=== PATIENT | male | born 1945 | race Caucasian/White ===

== ENCOUNTER 2020-11-10 17:16 | Inpatient (IN) | payer OTHER, MEDICARE ==
[2020-11-10] MEDS ORDERED: ACETAMINOPHEN 1000 MG/100 ML VIAL (NON FORMULARY) IVPB ONE (17:56)
[2020-11-10] MEDS ORDERED: METOCLOPRAMIDE HCL INJECTION 10 MG/2 ML VIAL IVPB ONE (17:56)
[2020-11-10] MEDS ORDERED: FAMOTIDINE 20 MG/50 ML IVPB 20 MG/50 ML MG IVPB ONE ×2 (17:56→18:19)
[2020-11-10] MEDS ORDERED: ACETAMINOPHEN INJECTION 100 ML IVPB ONE (18:19)
[2020-11-10] MEDS ORDERED: METOCLOPRAMIDE HCL INJECTION 10 MG/2 ML VIAL ONE (18:19)
[2020-11-10 19:14] LABS: BASO % 0.3 % (0-2.0); EOS % 0.2 % (0-4.5); LYMPH % 3.3 % (8-40); MCH 30.1 pg (25.7-33.7); MCHC 33.5 g/dl (32.0-35.9); MEAN CELL VOLUME 89.9 fl (80-96); MEAN PLT VOLUME 8.6 fl (7.5-11.1); MONO % 7.1 % (3.8-10.2); NEUT % 89.1 % (42.8-82.8); PLATELET COUNT 241 10^3/uL (134-434); RBC 4.33 M/mm3 (4.00-5.60); RDW 14.6 % (11.9-15.9); WHITE BLOOD COUNT 12.2 K/mm3 (4.0-10.0)
[2020-11-10 19:35] LABS: CHLORIDE 106 mmol/L (98-107); SODIUM 139 mmol/L (136-145)
[2020-11-10 19:37] LABS: BLOOD UREA NITROGEN 28.7 mg/dL (7-18); CALCIUM 9.4 mg/dL (8.5-10.1)
[2020-11-10 19:38] LABS: ANION GAP 9 MMOL/L (8-16); CO2 24 mmol/L (21-32); GLUCOSE,RANDOM 162 mg/dL (74-106); LIPASE 97 U/L (73-393); MAGNESIUM 2.2 mg/dL (1.8-2.4)
[2020-11-10 19:41] LABS: CREATININE 1.1 mg/dL (0.55-1.3); SGOT/AST 27 U/L (15-37); SGPT/ALT 34 U/L (13-61)
[2020-11-10 19:42] LABS: BILIRUBIN,TOTAL 0.9 mg/dL (0.2-1); TOT PROT 7.9 g/dl (6.4-8.2)
[2020-11-10 19:43] LABS: ALK PHOS 106 U/L (45-117)
[2020-11-10 19:49] LABS: LACTIC ACID 3.2 mmol/L (0.4-2.0)
[2020-11-10] MEDS ORDERED: SODIUM CHLORIDE 0.9% 500 ML INFUS.BAG IV ONE (20:16)
[2020-11-10 21:12] LABS: URINE APPEARANCE CLOUDY; URINE BILIRUBIN NEGATIVE (NEGATIVE); URINE COLOR DK YELLOW; URINE GLUCOSE (UA) NEGATIVE (NEGATIVE); URINE KETONE 1+ (NEGATIVE); URINE LEUK ESTERASE NEGATIVE (NEGATIVE); URINE NITRITE NEGATIVE (NEGATIVE); URINE PROTEIN TRACE (NEGATIVE)
[2020-11-10] MEDS ORDERED: SODIUM PHOSPHATE/NA BIPHOS 133 ML ENEMA PR ONE (22:02)
[2020-11-10] MEDS ORDERED: POLYETHYLENE GLYCOL 3350 119 GM BTL PO SCH (22:05)
[2020-11-10] MEDS ORDERED: MINERAL OIL ENEMA 133 ML ENEMA PR ONE (23:08)
[2020-11-11] MEDS ORDERED: ACETAMINOPHEN 325 MG TABLET (FP) PO PRN (03:06)
[2020-11-11 08:20] LABS: BASO % 0.5 % (0-2.0); EOS % 3.8 % (0-4.5); HEMATOCRIT 36.2 % (35.4-49); HEMOGLOBIN 12.2 GM/dL (11.7-16.9); LYMPH % 11.8 % (8-40); MCH 30.7 pg (25.7-33.7); MCHC 33.8 g/dl (32.0-35.9); MEAN CELL VOLUME 90.8 fl (80-96); MONO % 12.4 % (3.8-10.2); NEUT % 71.5 % (42.8-82.8); PLATELET COUNT 224 10^3/uL (134-434); RBC 3.98 M/mm3 (4.00-5.60); RDW 14.6 % (11.9-15.9)
[2020-11-11 08:24] LABS: PHOSPHOROUS 1.3 mg/dL (2.5-4.9)
[2020-11-11 08:49] LABS: CALCIUM 8.6 mg/dL (8.5-10.1)
[2020-11-11 08:50] LABS: ALBUMIN 3.2 g/dl (3.4-5.0); BLOOD UREA NITROGEN 22.5 mg/dL (7-18); MAGNESIUM 2.2 mg/dL (1.8-2.4)
[2020-11-11 08:53] LABS: CREATININE 0.8 mg/dL (0.55-1.3); PHOSPHOROUS 3.1 mg/dL (2.5-4.9)
[2020-11-11 08:54] LABS: BILIRUBIN,TOTAL 0.9 mg/dL (0.2-1); TOT PROT 6.5 g/dl (6.4-8.2)
[2020-11-11] MEDS: SERTRALINE HCL 50 MG TABLET (FP) PO SCH (09:47)
[2020-11-11] MEDS: ENOXAPARIN NA (PORCINE) 40 MG/0.4 ML DISP.SYRIN SQ SCH (09:47)
[2020-11-11] MEDS ORDERED: POLYETHYLENE GLYCOL 3350 119 GM BTL PO SCH (10:00)
[2020-11-11] MEDS: POLYETHYLENE GLYCOL (HEALTHYLAX) 3350 17 GM PACKET PO SCH (11:00)
[2020-11-11] MEDS: MIDODRINE HCL 2.5 MG TABLET PO SCH ×3 (11:41→17:08)
[2020-11-11] MEDS: LACTATED RINGERS SOLUTION 1,000 ML/1,000 ML INFUS.BAG IV SCH (19:49)
[2020-11-11] MEDS ORDERED: ATORVASTATIN CA 20 MG TABLET (FP) PO SCH (22:00)
[2020-11-12] MEDS: LACTATED RINGERS SOLUTION 1,000 ML/1,000 ML INFUS.BAG IV SCH (05:26)
[2020-11-12 07:35] LABS: BASO % 0.6 % (0-2.0); EOS % 5.7 % (0-4.5); HEMATOCRIT 34.3 % (35.4-49); HEMOGLOBIN 11.6 GM/dL (11.7-16.9); LYMPH % 15.5 % (8-40); MCH 30.3 pg (25.7-33.7); MCHC 33.7 g/dl (32.0-35.9); MEAN CELL VOLUME 89.9 fl (80-96); MEAN PLT VOLUME 8.6 fl (7.5-11.1); MONO % 13.4 % (3.8-10.2); NEUT % 64.8 % (42.8-82.8); PLATELET COUNT 215 10^3/uL (134-434); RBC 3.81 M/mm3 (4.00-5.60); RDW 15.1 % (11.9-15.9); WHITE BLOOD COUNT 6.2 K/mm3 (4.0-10.0)
[2020-11-12 07:48] LABS: CALCIUM 8.5 mg/dL (8.5-10.1)
[2020-11-12 07:51] LABS: CREATININE 0.8 mg/dL (0.55-1.3)
[2020-11-12 07:53] LABS: BILIRUBIN,TOTAL 0.9 mg/dL (0.2-1); TOT PROT 6.1 g/dl (6.4-8.2)
[2020-11-12] MEDS: ENOXAPARIN NA (PORCINE) 40 MG/0.4 ML DISP.SYRIN SQ SCH (09:35)
[2020-11-12] MEDS: POLYETHYLENE GLYCOL (HEALTHYLAX) 3350 17 GM PACKET PO SCH (09:35)
[2020-11-12] MEDS: SERTRALINE HCL 50 MG TABLET (FP) PO SCH (09:35)
[2020-11-12] MEDS: MIDODRINE HCL 2.5 MG TABLET PO SCH ×3 (09:35→18:03)
[2020-11-12] MEDS ORDERED: PANTOPRAZOLE 40 MG TABLET PO SCH (10:00)
[2020-11-12 13:57] VITALS: BP 117/58; PULSE 75; TEMP 98.2
[2020-11-12 15:29] VITALS: BMI 17.2
== END 2020-11-12 18:05 | disposition home or self-care (01) | DRG 389 ==
LOC: JER 17:16 → JERBED 22:15 → J7W 11-11 09:14
PROVIDERS: ADMIT Internal Medicine; ATTEND Internal Medicine
DX: K56.49 Other impaction of intestine (principal); C15.9 Malignant neoplasm of esophagus, unspecified; E87.2 Acidosis; K56.7 Ileus, unspecified; I10 Essential (primary) hypertension; E78.5 Hyperlipidemia, unspecified; F32.9 Major depressive disorder, single episode, unspecified; K44.9 Diaphragmatic hernia without obstruction or gangrene
CPT/HCPCS: 36415; 71045-TC-FY; 74177-TC; 80053; 81003; 82550; 83605; 83690; 83735; 84100; 84484; 85025; 87086; 87186; 93005; 93010; 99285-25; C9803; J0131; Q9967; U0003; U0005

== ENCOUNTER 2021-01-09 05:15 | Day surgery (SDC) | payer OTHER, MEDICARE ==
[2021-01-08 11:15] VITALS: BMI 20.1
[2021-01-09 13:19] VITALS: TEMP 98
[2021-01-09 13:45] VITALS: BP 141/68; PULSE 63
== END 2021-01-09 14:15 | disposition home or self-care (01) ==
LOC: JASU-ENDO 05:15
PROVIDERS: ATTEND Internal Medicine Gastroenterology
PROC: 0DJD8ZZ Inspection of Lower Intestinal Tract, Via Natural or Artificial Opening Endoscopic (ICD-10-PCS; principal; 2021-01-09 11:45)
DX: Z12.11 Encounter for screening for malignant neoplasm of colon (principal); Z85.038 Personal history of other malignant neoplasm of large intestine

== ENCOUNTER 2021-12-18 04:23 | Day surgery (SDC) | payer OTHER, MEDICARE ==
[2021-12-15 13:00] VITALS: BMI 20.1
[2021-12-18] MEDS ORDERED: LACTATED RINGERS SOLUTION 1,000 ML IV SCH (07:30)
[2021-12-18 11:56] VITALS: BP 132/64; PULSE 69; RESP 17; TEMP 97.8
== END 2021-12-18 11:45 | disposition home or self-care (01) ==
LOC: JASU-ENDO 04:23
PROVIDERS: ATTEND Internal Medicine Gastroenterology
PROC: 0DJ08ZZ Inspection of Upper Intestinal Tract, Via Natural or Artificial Opening Endoscopic (ICD-10-PCS; principal; 2021-12-18 10:15)
DX: Z08 Encounter for follow-up examination after completed treatment for malignant neoplasm (principal); Z85.01 Personal history of malignant neoplasm of esophagus

== ENCOUNTER 2022-03-07 14:41 | Inpatient (IN) | payer OTHER, MEDICARE ==
[2022-03-07 14:48] VITALS: BMI 19.0
[2022-03-07] MEDS ORDERED: LACTATED RINGERS SOLUTION 1000 ML INFUS.BAG IV ONE ×2 (17:21→20:40)
[2022-03-07 18:13] LABS: BASO % 0.1 % (0-2.0); EOS % 0.1 % (0-4.5); HEMOGLOBIN 11.2 GM/dL (11.7-16.9); LYMPH % 3.5 % (8-40); MEAN CELL VOLUME 91.1 fl (80-96); MEAN PLT VOLUME 9.3 fl (7.5-11.1); MONO % 6.7 % (3.8-10.2); NEUT % 89.6 % (42.8-82.8); PLATELET COUNT 185 10^3/uL (134-434); RBC 3.73 M/mm3 (4.00-5.60); RDW 14.4 % (11.9-15.9); WHITE BLOOD COUNT 16.8 K/mm3 (4.0-10.0)
[2022-03-07 18:32] LABS: CHLORIDE 101 mmol/L (98-107); SODIUM 139 mmol/L (136-145)
[2022-03-07 18:34] LABS: CALCIUM 8.5 mg/dL (8.5-10.1)
[2022-03-07 18:35] LABS: ALBUMIN 2.8 g/dl (3.4-5.0); ANION GAP 11 MMOL/L (8-16); BLOOD UREA NITROGEN 35.4 mg/dL (7-18); CO2 26 mmol/L (21-32); GLUCOSE,RANDOM 131 mg/dL (74-106)
[2022-03-07 18:38] LABS: CREATININE 1.4 mg/dL (0.55-1.3); SGOT/AST 18 U/L (15-37); SGPT/ALT 22 U/L (13-61)
[2022-03-07 18:39] LABS: TOT PROT 6.2 g/dl (6.4-8.2)
[2022-03-07 18:40] LABS: BILIRUBIN,TOTAL 0.7 mg/dL (0.2-1)
[2022-03-07 18:41] LABS: ALK PHOS 75 U/L (45-117)
[2022-03-07 18:42] LABS: EPI CELLS 13 /uL (0-25.1); HYALINE CASTS 4 /uL (0-3.1); PH,URINE 5.5 (5.0-8.0); URINE APPEARANCE CLOUDY; URINE BACTERIA 11 /uL (0-1359); URINE BILIRUBIN NEGATIVE (NEGATIVE); URINE COLOR DK YELLOW; URINE GLUCOSE (UA) NEGATIVE (NEGATIVE); URINE KETONE TRACE (NEGATIVE); URINE LEUK ESTERASE NEGATIVE (NEGATIVE); URINE NITRITE NEGATIVE (NEGATIVE); URINE PROTEIN 2+ (NEGATIVE); URINE RBC 10 /uL (0-23.9); URINE WBC 10 /uL (0-25.8)
[2022-03-07] MEDS ORDERED: ASPIRIN 81 MG CHEWABLE TABLETS PO ONE (19:46)
[2022-03-07] MEDS ORDERED: PIPERACILLIN/TAZOB 3.375 GM 3.375 GM in DEXTROSE 5%-WATER - 50 ML IVPB ONE (20:42)
[2022-03-07] MEDS ORDERED: VANCOMYCIN 1 GM in D5W (PRE-DOCKED) 1,000 MG/250 ML IVPB ONE (20:42)
[2022-03-07] MEDS ORDERED: PIPERACILLIN/TAZOB 3.375 GM 3.375 GM/50 ML BAG IVPB ONE (22:24)
[2022-03-08] MEDS ORDERED: VANCOMYCIN/WATER FOR INJ (PEG) 1,000 MG/200 ML BAG IVPB ONE (02:36)
[2022-03-08] MEDS: LACTATED RINGERS SOLUTION 1,000 ML/1,000 ML INFUS.BAG IV SCH (02:49)
[2022-03-08] MEDS ORDERED: PIPERACILLIN/TAZOB 2.25 GM 2.25 GM in DEXTROSE 5%-WATER - 50 ML IVPB SCH (06:00)
[2022-03-08] MEDS: PIPERACILLIN/TAZOB 2.25 GM 2.25 GM in DEXTROSE 5%-WATER - 50 ML IVPB SCH ×2 (06:44→10:03)
[2022-03-08 07:35] LABS: HEMATOCRIT 33.2 % (35.4-49); HEMOGLOBIN 10.8 GM/dL (11.7-16.9); MCH 29.9 pg (25.7-33.7); MCHC 32.6 g/dl (32.0-35.9); MEAN CELL VOLUME 91.6 fl (80-96); MEAN PLT VOLUME 10.3 fl (7.5-11.1); PLATELET COUNT 171 10^3/uL (134-434); RBC 3.63 M/mm3 (4.00-5.60); RDW 14.4 % (11.9-15.9); WHITE BLOOD COUNT 16.8 K/mm3 (4.0-10.0)
[2022-03-08 08:58] LABS: HEMATOCRIT 32.6 % (35.4-49); HEMOGLOBIN 10.8 GM/dL (11.7-16.9); MCH 30.2 pg (25.7-33.7); MCHC 33.1 g/dl (32.0-35.9); MEAN CELL VOLUME 91.3 fl (80-96); MEAN PLT VOLUME 9.7 fl (7.5-11.1); PLATELET COUNT 189 10^3/uL (134-434); RBC 3.57 M/mm3 (4.00-5.60); RDW 14.6 % (11.9-15.9); WHITE BLOOD COUNT 19.1 K/mm3 (4.0-10.0)
[2022-03-08 09:04] LABS: ALBUMIN 2.5 g/dl (3.4-5.0); BLOOD UREA NITROGEN 23.1 mg/dL (7-18); CALCIUM 8.3 mg/dL (8.5-10.1); MAGNESIUM 1.7 mg/dL (1.8-2.4)
[2022-03-08 09:08] LABS: PHOSPHOROUS 2.1 mg/dL (2.5-4.9)
[2022-03-08 09:09] LABS: TOT PROT 5.8 g/dl (6.4-8.2)
[2022-03-08 09:18] LABS: ANISOCYTOSIS 0; MACROCYTOSIS 0; PLATELET ESTIMATE DECREASED
[2022-03-08] MEDS ORDERED: VANCOMYCIN 1 GM/200 ML PREMIX BAG (RESTRICTED TO ID ONLY) IVPB SCH (10:00)
[2022-03-08] MEDS ORDERED: VANCOMYCIN 1 GM in D5W (PRE-DOCKED) 1,000 MG/250 ML IVPB SCH ×3 (10:00)
[2022-03-08 10:01] LABS: ANISOCYTOSIS 1+; MACROCYTOSIS 0; PLATELET ESTIMATE DECREASED
[2022-03-08] MEDS ORDERED: MAGNESIUM SULF 50% (8.12 MEQ/2 ML-1 GM VIAL) IVPB ONE (10:30)
[2022-03-08] MEDS ORDERED: POTASSIUM PHOSPHATE 30 MM in SODIUM CHLORIDE 250 ML IVPB ONE (11:00)
[2022-03-08] MEDS ORDERED: POTASSIUM PHOSPHATE 30 MM in SODIUM CHLORIDE 500 ML IVPB ONE (11:00)
[2022-03-08] MEDS: FLUCONAZOLE 200 MG/NS 100 ML IVPB SCH (16:54)
[2022-03-08] MEDS ORDERED: VANCOMYCIN/WATER FOR INJ (PEG) 1,000 MG/200 ML BAG IVPB SCH (20:00)
[2022-03-08] MEDS: PIPERACILLIN/TAZOB 3.375 GM 3.375 GM in DEXTROSE 5%-WATER - 50 ML IVPB SCH (21:00)
[2022-03-08] MEDS ORDERED: METOPROLOL TARTRATE 5 MG/5 ML VIAL IVPUSH ONE (23:20)
[2022-03-09] MEDS: PIPERACILLIN/TAZOB 3.375 GM 3.375 GM in DEXTROSE 5%-WATER - 50 ML IVPB SCH ×3 (03:30→18:44)
[2022-03-09] MEDS: LACTATED RINGERS SOLUTION 1,000 ML/1,000 ML INFUS.BAG IV SCH (03:50)
[2022-03-09] MEDS: DEXTROSE 5%-LACTATED RINGERS 1,000 ML IV SCH (10:45)
[2022-03-09 11:20] LABS: BASO % 0.1 % (0-2.0); EOS % 0.7 % (0-4.5); HEMATOCRIT 33.8 % (35.4-49); HEMOGLOBIN 10.8 GM/dL (11.7-16.9); LYMPH % 2.8 % (8-40); MCH 29.5 pg (25.7-33.7); MEAN PLT VOLUME 9.9 fl (7.5-11.1); MONO % 5.8 % (3.8-10.2); NEUT % 90.6 % (42.8-82.8); PLATELET COUNT 228 10^3/uL (134-434); RBC 3.67 M/mm3 (4.00-5.60); RDW 14.7 % (11.9-15.9); WHITE BLOOD COUNT 18.2 K/mm3 (4.0-10.0)
[2022-03-09 11:24] LABS: INR 1.17 (0.83-1.09); PROTHROMBIN TIME (PATIENT) 13.5 SEC (9.7-13.0)
[2022-03-09 11:27] LABS: ACTIVATED PTT 25.3 SECONDS (25.2-36.5)
[2022-03-09] MEDS: FLUCONAZOLE 200 MG/NS 100 ML IVPB SCH (11:43)
[2022-03-09 11:50] LABS: ALBUMIN 2.2 g/dl (3.4-5.0); BLOOD UREA NITROGEN 19.7 mg/dL (7-18); MAGNESIUM 1.9 mg/dL (1.8-2.4)
[2022-03-09 11:53] LABS: PHOSPHOROUS 2.4 mg/dL (2.5-4.9)
[2022-03-09 11:55] LABS: BILIRUBIN,TOTAL 1.1 mg/dL (0.2-1); TOT PROT 5.5 g/dl (6.4-8.2)
[2022-03-09] MEDS ORDERED: POTASSIUM PHOSPHATE 15 MM in DEXTROSE 5%-WATER - 250 ML IVPB ONE (14:00)
[2022-03-10] MEDS: PIPERACILLIN/TAZOB 3.375 GM 3.375 GM in DEXTROSE 5%-WATER - 50 ML IVPB SCH ×3 (02:12→18:48)
[2022-03-10 09:17] LABS: HEMATOCRIT 31.5 % (35.4-49); HEMOGLOBIN 10.5 GM/dL (11.7-16.9); MCH 30.2 pg (25.7-33.7); MCHC 33.4 g/dl (32.0-35.9); MEAN CELL VOLUME 90.4 fl (80-96); MEAN PLT VOLUME 9.3 fl (7.5-11.1); PLATELET COUNT 234 10^3/uL (134-434); RBC 3.49 M/mm3 (4.00-5.60); RDW 14.5 % (11.9-15.9); WHITE BLOOD COUNT 21.1 K/mm3 (4.0-10.0)
[2022-03-10 09:40] LABS: BLOOD UREA NITROGEN 15.2 mg/dL (7-18); CALCIUM 7.7 mg/dL (8.5-10.1)
[2022-03-10 09:44] LABS: CREATININE 0.9 mg/dL (0.55-1.3)
[2022-03-10] MEDS: FLUCONAZOLE 200 MG/NS 100 ML IVPB SCH (10:15)
[2022-03-10] MEDS: DEXTROSE 5%-LACTATED RINGERS 1,000 ML IV SCH (10:17)
[2022-03-10] MEDS: ENOXAPARIN NA (PORCINE) 40 MG/0.4 ML DISP.SYRIN SQ SCH (10:18)
[2022-03-10] MEDS: PANTOPRAZOLE 40 MG TABLET PO SCH (10:18)
[2022-03-10] MEDS: SERTRALINE HCL 50 MG TABLET (FP) PO SCH (10:18)
[2022-03-10 11:05] LABS: ANISOCYTOSIS 0; HELMET CELLS 0; HOWELL-JOLLY BODIES 0; MACROCYTOSIS 0; OVALOCYTE 0; ROULEAU 0; SICKELED CELLS 0; TARGET CELLS 0; TEAR DROP CELLS 0; TOXIC GRANULATION 0
[2022-03-11] MEDS: PIPERACILLIN/TAZOB 3.375 GM 3.375 GM in DEXTROSE 5%-WATER - 50 ML IVPB SCH ×3 (02:01→20:23)
[2022-03-11] MEDS ORDERED: POLYETHYLENE GLYCOL (HEALTHYLAX) 3350 17 GM PACKET PO PRN (10:30)
[2022-03-11 10:33] LABS: BASO % 0.3 % (0-2.0); EOS % 0.7 % (0-4.5); HEMATOCRIT 36.1 % (35.4-49); HEMOGLOBIN 11.5 GM/dL (11.7-16.9); LYMPH % 4.3 % (8-40); MCH 29.1 pg (25.7-33.7); MCHC 31.7 g/dl (32.0-35.9); MEAN CELL VOLUME 91.8 fl (80-96); MEAN PLT VOLUME 9.7 fl (7.5-11.1); MONO % 5.2 % (3.8-10.2); NEUT % 89.5 % (42.8-82.8); PLATELET COUNT 287 10^3/uL (134-434); RBC 3.93 M/mm3 (4.00-5.60); RDW 14.6 % (11.9-15.9); WHITE BLOOD COUNT 19.3 K/mm3 (4.0-10.0)
[2022-03-11] MEDS: PANTOPRAZOLE 40 MG TABLET PO SCH (11:03)
[2022-03-11] MEDS: FLUCONAZOLE 200 MG/NS 100 ML IVPB SCH (11:03)
[2022-03-11] MEDS: ENOXAPARIN NA (PORCINE) 40 MG/0.4 ML DISP.SYRIN SQ SCH (11:03)
[2022-03-11 11:04] LABS: CALCIUM 8.1 mg/dL (8.5-10.1)
[2022-03-11] MEDS: SERTRALINE HCL 50 MG TABLET (FP) PO SCH (11:04)
[2022-03-11 11:05] LABS: ALBUMIN 2.1 g/dl (3.4-5.0); BLOOD UREA NITROGEN 13.5 mg/dL (7-18); MAGNESIUM 1.8 mg/dL (1.8-2.4)
[2022-03-11 11:08] LABS: PHOSPHOROUS 1.8 mg/dL (2.5-4.9)
[2022-03-11 11:09] LABS: BILIRUBIN,TOTAL 0.6 mg/dL (0.2-1); TOT PROT 5.6 g/dl (6.4-8.2)
[2022-03-11] MEDS: MULTIVITAMINS (DAILY MVI) TABLET (FP) PO SCH (11:11)
[2022-03-11] MEDS ORDERED: POTASSIUM CHLORIDE ORAL LIQUID 20 MEQ/15 ML PO ONE (13:25)
[2022-03-11] MEDS ORDERED: POTASSIUM CHLORIDE TABS 20 MEQ TABLET.ER (FP) PO ONE ×2 (13:30→16:00)
[2022-03-11] MEDS: DEXTROSE 5%-LACTATED RINGERS 1,000 ML IV SCH (15:54)
[2022-03-12] MEDS: PIPERACILLIN/TAZOB 3.375 GM 3.375 GM in DEXTROSE 5%-WATER - 50 ML IVPB SCH ×3 (02:20→17:48)
[2022-03-12] MEDS ORDERED: ACETAMINOPHEN 1000 MG/100 ML BAG IVPB ONE (05:00)
[2022-03-12] MEDS ORDERED: METOPROLOL TARTRATE 5 MG/5 ML VIAL IVPUSH ONE (05:41)
[2022-03-12] MEDS ORDERED: METOPROLOL TARTRATE 5 MG/5 ML VIAL ONE (05:52)
[2022-03-12] MEDS ORDERED: ASPIRIN COATED 81 MG TABLET.EC PO SCH (10:00)
[2022-03-12] MEDS: ENOXAPARIN NA (PORCINE) 40 MG/0.4 ML DISP.SYRIN SQ SCH (11:49)
[2022-03-12] MEDS: SERTRALINE HCL 50 MG TABLET (FP) PO SCH (12:16)
[2022-03-12] MEDS: MULTIVITAMINS (DAILY MVI) TABLET (FP) PO SCH (12:17)
[2022-03-12] MEDS: PANTOPRAZOLE 40 MG TABLET PO SCH (12:17)
[2022-03-12] MEDS: FLUCONAZOLE 200 MG/NS 100 ML IVPB SCH (12:20)
[2022-03-12 14:49] LABS: CALCIUM 8.2 mg/dL (8.5-10.1)
[2022-03-12 14:50] LABS: BLOOD UREA NITROGEN 9.9 mg/dL (7-18)
[2022-03-12 14:53] LABS: CREATININE 0.9 mg/dL (0.55-1.3)
[2022-03-12] MEDS: DEXTROSE 5%-LACTATED RINGERS 1,000 ML IV SCH (17:48)
[2022-03-12] MEDS ORDERED: ACETAMINOPHEN 325 MG TABLET (FP) PO ONE (18:24)
[2022-03-12] MEDS ORDERED: SODIUM CHLORIDE 500 ML IV STA (20:22)
[2022-03-13] MEDS: PIPERACILLIN/TAZOB 3.375 GM 3.375 GM in DEXTROSE 5%-WATER - 50 ML IVPB SCH ×3 (02:49→17:24)
[2022-03-13 09:19] LABS: BASO % 0.7 % (0-2.0); EOS % 1.6 % (0-4.5); HEMATOCRIT 36.4 % (35.4-49); HEMOGLOBIN 11.6 GM/dL (11.7-16.9); LYMPH % 6.9 % (8-40); MCH 29.1 pg (25.7-33.7); MCHC 31.7 g/dl (32.0-35.9); MEAN CELL VOLUME 91.9 fl (80-96); MEAN PLT VOLUME 9.4 fl (7.5-11.1); MONO % 2.8 % (3.8-10.2); PLATELET COUNT 383 10^3/uL (134-434); RBC 3.97 M/mm3 (4.00-5.60); RDW 15.1 % (11.9-15.9); WHITE BLOOD COUNT 12.5 K/mm3 (4.0-10.0)
[2022-03-13 09:52] LABS: ALBUMIN 2.1 g/dl (3.4-5.0); CALCIUM 8.3 mg/dL (8.5-10.1)
[2022-03-13 09:54] LABS: BLOOD UREA NITROGEN 7.9 mg/dL (7-18); MAGNESIUM 1.8 mg/dL (1.8-2.4)
[2022-03-13 09:56] LABS: CREATININE 0.9 mg/dL (0.55-1.3); PHOSPHOROUS 2.1 mg/dL (2.5-4.9); TOT PROT 5.6 g/dl (6.4-8.2)
[2022-03-13 09:57] LABS: BILIRUBIN,TOTAL 0.5 mg/dL (0.2-1)
[2022-03-13] MEDS ORDERED: ACETAMINOPHEN 500 MG TABLET (FP) PO PRN (10:08)
[2022-03-13] MEDS: ENOXAPARIN NA (PORCINE) 40 MG/0.4 ML DISP.SYRIN SQ SCH (10:10)
[2022-03-13] MEDS: PANTOPRAZOLE 40 MG TABLET PO SCH (10:11)
[2022-03-13] MEDS: SERTRALINE HCL 50 MG TABLET (FP) PO SCH (10:11)
[2022-03-13] MEDS: MULTIVITAMINS (DAILY MVI) TABLET (FP) PO SCH (10:11)
[2022-03-13] MEDS: FLUCONAZOLE 200 MG/NS 100 ML IVPB SCH (10:25)
[2022-03-13] MEDS: DEXTROSE 5%-LACTATED RINGERS 1,000 ML IV SCH (10:29)
[2022-03-14] MEDS: PIPERACILLIN/TAZOB 3.375 GM 3.375 GM in DEXTROSE 5%-WATER - 50 ML IVPB SCH ×2 (01:32→09:16)
[2022-03-14] MEDS: MULTIVITAMINS (DAILY MVI) TABLET (FP) PO SCH (09:16)
[2022-03-14] MEDS: SERTRALINE HCL 50 MG TABLET (FP) PO SCH (09:16)
[2022-03-14] MEDS: PANTOPRAZOLE 40 MG TABLET PO SCH (09:16)
[2022-03-14] MEDS: ENOXAPARIN NA (PORCINE) 40 MG/0.4 ML DISP.SYRIN SQ SCH (09:17)
[2022-03-14] MEDS: FLUCONAZOLE 200 MG/NS 100 ML IVPB SCH (09:17)
[2022-03-14 09:31] LABS: HEMATOCRIT 33.6 % (35.4-49); HEMOGLOBIN 10.8 GM/dL (11.7-16.9); MCH 29.4 pg (25.7-33.7); MCHC 32.3 g/dl (32.0-35.9); MEAN CELL VOLUME 91.1 fl (80-96); MEAN PLT VOLUME 8.8 fl (7.5-11.1); PLATELET COUNT 442 10^3/uL (134-434); RBC 3.69 M/mm3 (4.00-5.60); RDW 15.1 % (11.9-15.9); WHITE BLOOD COUNT 16.4 K/mm3 (4.0-10.0)
[2022-03-14 09:56] LABS: ALBUMIN 1.9 g/dl (3.4-5.0)
[2022-03-14 09:57] LABS: BLOOD UREA NITROGEN 11.6 mg/dL (7-18); MAGNESIUM 1.6 mg/dL (1.8-2.4)
[2022-03-14 10:00] LABS: PHOSPHOROUS 1.8 mg/dL (2.5-4.9)
[2022-03-14 10:03] LABS: TOT PROT 5.2 g/dl (6.4-8.2)
[2022-03-14 10:05] LABS: BILIRUBIN,TOTAL 0.7 mg/dL (0.2-1)
[2022-03-14] MEDS ORDERED: MAGNESIUM SULF 50% (8.12 MEQ/2 ML-1 GM VIAL) IVPB ONE ×2 (10:16→12:45)
[2022-03-14] MEDS ORDERED: POTASSIUM PHOSPHATE 15 MM in SODIUM CHLORIDE 250 ML IVPB ONE (10:30)
[2022-03-14 10:56] LABS: ANISOCYTOSIS 0; HELMET CELLS 0; HOWELL-JOLLY BODIES 0; MACROCYTOSIS 0; OVALOCYTE 0; ROULEAU 0; SICKELED CELLS 0; TARGET CELLS 0; TEAR DROP CELLS 0; TOXIC GRANULATION 0
[2022-03-14] MEDS: ERTAPENEM SODIUM 1 GM in SODIUM CHLORIDE 50 ML IVPB SCH (12:19)
[2022-03-15 08:01] LABS: BASO % 0.4 % (0-2.0); EOS % 1.3 % (0-4.5); HEMATOCRIT 32.2 % (35.4-49); HEMOGLOBIN 10.4 GM/dL (11.7-16.9); LYMPH % 6.9 % (8-40); MCH 29.3 pg (25.7-33.7); MCHC 32.4 g/dl (32.0-35.9); MEAN CELL VOLUME 90.3 fl (80-96); MEAN PLT VOLUME 8.8 fl (7.5-11.1); MONO % 10.1 % (3.8-10.2); NEUT % 81.3 % (42.8-82.8); PLATELET COUNT 478 10^3/uL (134-434); RBC 3.57 M/mm3 (4.00-5.60); RDW 14.8 % (11.9-15.9); WHITE BLOOD COUNT 13.9 K/mm3 (4.0-10.0)
[2022-03-15 08:41] LABS: ALBUMIN 1.7 g/dl (3.4-5.0); BILIRUBIN,TOTAL 0.7 mg/dL (0.2-1); CALCIUM 7.5 mg/dL (8.5-10.1); CREATININE 0.8 mg/dL (0.55-1.3); MAGNESIUM 1.8 mg/dL (1.8-2.4); PHOSPHOROUS 2.9 mg/dL (2.5-4.9); TOT PROT 4.7 g/dl (6.4-8.2)
[2022-03-15 09:54] LABS: URINE APPEARANCE CLEAR; URINE BILIRUBIN NEGATIVE (NEGATIVE); URINE COLOR YELLOW; URINE GLUCOSE (UA) NEGATIVE (NEGATIVE); URINE KETONE NEGATIVE (NEGATIVE); URINE LEUK ESTERASE NEGATIVE (NEGATIVE); URINE NITRITE NEGATIVE (NEGATIVE); URINE PROTEIN TRACE (NEGATIVE); URINE UROBILINOGEN 0.2 mg/dL (0.2-1.0)
[2022-03-15] MEDS: ENOXAPARIN NA (PORCINE) 40 MG/0.4 ML DISP.SYRIN SQ SCH (10:48)
[2022-03-15] MEDS: MULTIVITAMINS (DAILY MVI) TABLET (FP) PO SCH (10:50)
[2022-03-15] MEDS: FLUCONAZOLE 200 MG/NS 100 ML IVPB SCH (10:50)
[2022-03-15] MEDS: PANTOPRAZOLE 40 MG TABLET PO SCH (10:50)
[2022-03-15] MEDS: SERTRALINE HCL 50 MG TABLET (FP) PO SCH (10:50)
[2022-03-15] MEDS: ERTAPENEM SODIUM 1 GM in SODIUM CHLORIDE 50 ML IVPB SCH (11:30)
[2022-03-15] MEDS ORDERED: FUROSEMIDE 40 MG/4 ML INJECTABLE VIAL IVPUSH ONE (13:45)
[2022-03-15] MEDS: ACETAMINOPHEN 1000 MG/100 ML BAG IVPB PRN ×2 (15:54→21:35)
[2022-03-16] MEDS: ACETAMINOPHEN 1000 MG/100 ML BAG IVPB PRN (06:14)
[2022-03-16 07:25] LABS: BASO % 0.5 % (0-2.0); EOS % 2.1 % (0-4.5); HEMATOCRIT 34.4 % (35.4-49); HEMOGLOBIN 11.3 GM/dL (11.7-16.9); LYMPH % 5.8 % (8-40); MCH 29.7 pg (25.7-33.7); MCHC 32.7 g/dl (32.0-35.9); MEAN CELL VOLUME 90.7 fl (80-96); MEAN PLT VOLUME 8.8 fl (7.5-11.1); MONO % 10.3 % (3.8-10.2); NEUT % 81.3 % (42.8-82.8); PLATELET COUNT 538 10^3/uL (134-434); RDW 15.1 % (11.9-15.9); WHITE BLOOD COUNT 13.5 K/mm3 (4.0-10.0)
[2022-03-16 07:58] LABS: ALBUMIN 1.9 g/dl (3.4-5.0); CALCIUM 8.1 mg/dL (8.5-10.1)
[2022-03-16 07:59] LABS: BLOOD UREA NITROGEN 13.9 mg/dL (7-18)
[2022-03-16 08:01] LABS: CREATININE 0.8 mg/dL (0.55-1.3); PHOSPHOROUS 2.7 mg/dL (2.5-4.9)
[2022-03-16 08:03] LABS: BILIRUBIN,TOTAL 0.5 mg/dL (0.2-1); TOT PROT 5.3 g/dl (6.4-8.2)
[2022-03-16] MEDS: MULTIVITAMINS (DAILY MVI) TABLET (FP) PO SCH (10:44)
[2022-03-16] MEDS: DOCUSATE SODIUM 100 MG CAPSULE (FP) PO SCH ×2 (10:44→22:13)
[2022-03-16] MEDS: POLYETHYLENE GLYCOL (HEALTHYLAX) 3350 17 GM PACKET PO SCH (10:44)
[2022-03-16] MEDS: SERTRALINE HCL 50 MG TABLET (FP) PO SCH (10:44)
[2022-03-16] MEDS: PANTOPRAZOLE 40 MG TABLET PO SCH (10:44)
[2022-03-16] MEDS: ERTAPENEM SODIUM 1 GM in SODIUM CHLORIDE 50 ML IVPB SCH (10:45)
[2022-03-16] MEDS: ENOXAPARIN NA (PORCINE) 40 MG/0.4 ML DISP.SYRIN SQ SCH (10:45)
[2022-03-16] MEDS: FLUCONAZOLE 200 MG/NS 100 ML IVPB SCH (10:46)
[2022-03-16] MEDS: FUROSEMIDE 40 MG/4 ML INJECTABLE VIAL IVPUSH SCH (10:52)
[2022-03-16] MEDS ORDERED: SODIUM ZIRCONIUM CYCLOSILICATE (LOKELMA) 5 GM PACKET PO SCH (11:45)
[2022-03-16] MEDS: ACETAMINOPHEN 1000 MG/100 ML BAG IVPB SCH ×2 (14:50→19:24)
[2022-03-17] MEDS: ACETAMINOPHEN 1000 MG/100 ML BAG IVPB SCH ×2 (01:09→08:28)
[2022-03-17 07:46] LABS: BASO % 0.5 % (0-2.0); EOS % 1.2 % (0-4.5); HEMATOCRIT 34.1 % (35.4-49); HEMOGLOBIN 11.1 GM/dL (11.7-16.9); LYMPH % 6.6 % (8-40); MCH 29.6 pg (25.7-33.7); MCHC 32.7 g/dl (32.0-35.9); MEAN CELL VOLUME 90.6 fl (80-96); MEAN PLT VOLUME 8.3 fl (7.5-11.1); MONO % 10.2 % (3.8-10.2); NEUT % 81.5 % (42.8-82.8); PLATELET COUNT 591 10^3/uL (134-434); RBC 3.76 M/mm3 (4.00-5.60); WHITE BLOOD COUNT 12.6 K/mm3 (4.0-10.0)
[2022-03-17 08:28] LABS: CALCIUM 8.2 mg/dL (8.5-10.1)
[2022-03-17 08:29] LABS: BLOOD UREA NITROGEN 14.1 mg/dL (7-18); MAGNESIUM 1.9 mg/dL (1.8-2.4)
[2022-03-17 08:32] LABS: CREATININE 0.8 mg/dL (0.55-1.3); PHOSPHOROUS 2.7 mg/dL (2.5-4.9)
[2022-03-17 08:33] LABS: BILIRUBIN,TOTAL 0.9 mg/dL (0.2-1); TOT PROT 5.5 g/dl (6.4-8.2)
[2022-03-17] MEDS: ENOXAPARIN NA (PORCINE) 40 MG/0.4 ML DISP.SYRIN SQ SCH (09:44)
[2022-03-17] MEDS: POLYETHYLENE GLYCOL (HEALTHYLAX) 3350 17 GM PACKET PO SCH ×2 (09:44→21:43)
[2022-03-17] MEDS: FUROSEMIDE 40 MG/4 ML INJECTABLE VIAL IVPUSH SCH (09:45)
[2022-03-17] MEDS: MULTIVITAMINS (DAILY MVI) TABLET (FP) PO SCH (09:45)
[2022-03-17] MEDS: SERTRALINE HCL 50 MG TABLET (FP) PO SCH (09:45)
[2022-03-17] MEDS: DOCUSATE SODIUM 100 MG CAPSULE (FP) PO SCH ×2 (09:45→21:43)
[2022-03-17] MEDS: PANTOPRAZOLE 40 MG TABLET PO SCH (09:45)
[2022-03-17] MEDS: FLUCONAZOLE 200 MG/NS 100 ML IVPB SCH (09:46)
[2022-03-17] MEDS: ERTAPENEM SODIUM 1 GM in SODIUM CHLORIDE 50 ML IVPB SCH (11:14)
[2022-03-18] MEDS ORDERED: morphine SULFATE 4 MG/ML VIAL IVPUSH PRN (02:57)
[2022-03-18 08:31] LABS: BASO % 0.5 % (0-2.0); EOS % 1.1 % (0-4.5); HEMATOCRIT 33.4 % (35.4-49); HEMOGLOBIN 10.8 GM/dL (11.7-16.9); LYMPH % 5.1 % (8-40); MCH 29.6 pg (25.7-33.7); MCHC 32.4 g/dl (32.0-35.9); MEAN CELL VOLUME 91.3 fl (80-96); MEAN PLT VOLUME 8.3 fl (7.5-11.1); MONO % 9.5 % (3.8-10.2); NEUT % 83.8 % (42.8-82.8); PLATELET COUNT 593 10^3/uL (134-434); RBC 3.66 M/mm3 (4.00-5.60); RDW 15.4 % (11.9-15.9); WHITE BLOOD COUNT 13.9 K/mm3 (4.0-10.0)
[2022-03-18 08:55] LABS: CALCIUM 8.1 mg/dL (8.5-10.1)
[2022-03-18 08:56] LABS: BLOOD UREA NITROGEN 15.7 mg/dL (7-18); MAGNESIUM 2.1 mg/dL (1.8-2.4)
[2022-03-18 08:58] LABS: CREATININE 0.7 mg/dL (0.55-1.3); PHOSPHOROUS 2.6 mg/dL (2.5-4.9)
[2022-03-18 09:00] LABS: TOT PROT 5.6 g/dl (6.4-8.2)
[2022-03-18 09:02] LABS: BILIRUBIN,TOTAL 0.5 mg/dL (0.2-1)
[2022-03-18] MEDS: ENOXAPARIN NA (PORCINE) 40 MG/0.4 ML DISP.SYRIN SQ SCH (09:54)
[2022-03-18] MEDS: PANTOPRAZOLE 40 MG TABLET PO SCH (09:55)
[2022-03-18] MEDS: MULTIVITAMINS (DAILY MVI) TABLET (FP) PO SCH (09:55)
[2022-03-18] MEDS: SERTRALINE HCL 50 MG TABLET (FP) PO SCH (09:55)
[2022-03-18] MEDS: DOCUSATE SODIUM 100 MG CAPSULE (FP) PO SCH ×2 (09:55→21:06)
[2022-03-18] MEDS: ERTAPENEM SODIUM 1 GM in SODIUM CHLORIDE 50 ML IVPB SCH (09:55)
[2022-03-18] MEDS ORDERED: FUROSEMIDE 20 MG TABLET (FP) PO SCH (10:00)
[2022-03-18] MEDS: POLYETHYLENE GLYCOL (HEALTHYLAX) 3350 17 GM PACKET PO SCH ×2 (12:04→21:07)
[2022-03-18] MEDS: KETOROLAC TROMETHAMINE 15 MG/ML VIAL IVPUSH PRN ×2 (13:50→21:10)
[2022-03-18] MEDS ORDERED: SODIUM CHLORIDE 500 ML IV STA (14:03)
[2022-03-18] MEDS ORDERED: LIDOCAINE 5% TOPICAL PATCH TP ONE (14:30)
[2022-03-18] MEDS ORDERED: METOPROLOL TARTRATE 5 MG/5 ML VIAL IVPUSH ONE (14:32)
[2022-03-18] MEDS ORDERED: dilTIAZem HCL 30 MG TABLET PO SCH (15:06)
[2022-03-18 17:43] LABS: BASO % 0.3 % (0-2.0); EOS % 0.2 % (0-4.5); HEMATOCRIT 35.7 % (35.4-49); HEMOGLOBIN 11.4 GM/dL (11.7-16.9); LYMPH % 5.9 % (8-40); MCH 29.1 pg (25.7-33.7); MCHC 31.9 g/dl (32.0-35.9); MEAN CELL VOLUME 91.3 fl (80-96); MEAN PLT VOLUME 7.8 fl (7.5-11.1); MONO % 7.6 % (3.8-10.2); PLATELET COUNT 669 10^3/uL (134-434); RBC 3.91 M/mm3 (4.00-5.60); RDW 15.2 % (11.9-15.9); WHITE BLOOD COUNT 13.2 K/mm3 (4.0-10.0)
[2022-03-18 17:55] LABS: CALCIUM 8.2 mg/dL (8.5-10.1)
[2022-03-18 17:56] LABS: N-TERMINAL BNP 691.9 pg/ml (5-450)
[2022-03-18 17:56] LABS: ALBUMIN 2.3 g/dl (3.4-5.0); BLOOD UREA NITROGEN 17.1 mg/dL (7-18)
[2022-03-18 17:59] LABS: CREATININE 0.8 mg/dL (0.55-1.3)
[2022-03-18 18:00] LABS: BILIRUBIN,TOTAL 0.4 mg/dL (0.2-1); TOT PROT 6.2 g/dl (6.4-8.2)
[2022-03-18 18:03] LABS: N-TERMINAL BNP 969.8 pg/ml (5-450)
[2022-03-18] MEDS: dilTIAZem HCL 30 MG TABLET PO SCH (21:06)
[2022-03-18] MEDS: LIDOCAINE PATCH REMOVAL MC SCH (21:07)
[2022-03-18] MEDS: metoPROLOL SUCCINATE 25 MG TAB.SR.24H (FP) PO SCH (21:08)
[2022-03-19] MEDS: dilTIAZem HCL 30 MG TABLET PO SCH ×3 (06:12→22:35)
[2022-03-19 08:10] LABS: BASO % 0.5 % (0-2.0); EOS % 0.9 % (0-4.5); HEMOGLOBIN 11.3 GM/dL (11.7-16.9); LYMPH % 6.4 % (8-40); MCH 30.2 pg (25.7-33.7); MCHC 33.2 g/dl (32.0-35.9); MEAN CELL VOLUME 90.9 fl (80-96); MEAN PLT VOLUME 7.7 fl (7.5-11.1); MONO % 7.9 % (3.8-10.2); NEUT % 84.3 % (42.8-82.8); PLATELET COUNT 636 10^3/uL (134-434); RBC 3.75 M/mm3 (4.00-5.60); RDW 15.6 % (11.9-15.9); WHITE BLOOD COUNT 9.9 K/mm3 (4.0-10.0)
[2022-03-19 08:38] LABS: CALCIUM 8.4 mg/dL (8.5-10.1)
[2022-03-19 08:39] LABS: ALBUMIN 2.2 g/dl (3.4-5.0); BLOOD UREA NITROGEN 16.4 mg/dL (7-18); MAGNESIUM 2.2 mg/dL (1.8-2.4)
[2022-03-19 08:41] LABS: CREATININE 0.8 mg/dL (0.55-1.3); PHOSPHOROUS 2.7 mg/dL (2.5-4.9)
[2022-03-19 08:44] LABS: BILIRUBIN,TOTAL 0.8 mg/dL (0.2-1); TOT PROT 5.8 g/dl (6.4-8.2)
[2022-03-19] MEDS ORDERED: SODIUM ZIRCONIUM CYCLOSILICATE (LOKELMA) 5 GM PACKET PO ONE (09:09)
[2022-03-19] MEDS: DOCUSATE SODIUM 100 MG CAPSULE (FP) PO SCH ×2 (09:41→22:34)
[2022-03-19] MEDS: MULTIVITAMINS (DAILY MVI) TABLET (FP) PO SCH (09:41)
[2022-03-19] MEDS: metoPROLOL SUCCINATE 25 MG TAB.SR.24H (FP) PO SCH ×2 (09:42→22:36)
[2022-03-19] MEDS: SERTRALINE HCL 50 MG TABLET (FP) PO SCH (09:42)
[2022-03-19] MEDS: ERTAPENEM SODIUM 1 GM in SODIUM CHLORIDE 50 ML IVPB SCH (09:42)
[2022-03-19] MEDS: PANTOPRAZOLE 40 MG TABLET PO SCH (09:42)
[2022-03-19] MEDS: POLYETHYLENE GLYCOL (HEALTHYLAX) 3350 17 GM PACKET PO SCH ×2 (09:42→22:46)
[2022-03-19] MEDS: ENOXAPARIN NA (PORCINE) 40 MG/0.4 ML DISP.SYRIN SQ SCH (09:42)
[2022-03-19] MEDS: KETOROLAC TROMETHAMINE 15 MG/ML VIAL IVPUSH PRN (18:34)
[2022-03-19] MEDS: LIDOCAINE PATCH REMOVAL MC SCH (22:39)
[2022-03-20] MEDS: KETOROLAC TROMETHAMINE 15 MG/ML VIAL IVPUSH PRN (01:30)
[2022-03-20] MEDS: dilTIAZem HCL 30 MG TABLET PO SCH ×2 (06:13→14:46)
[2022-03-20 09:13] LABS: BASO % 1.2 % (0-2.0); EOS % 1.8 % (0-4.5); HEMATOCRIT 31.4 % (35.4-49); HEMOGLOBIN 10.3 GM/dL (11.7-16.9); LYMPH % 8.4 % (8-40); MCH 29.7 pg (25.7-33.7); MCHC 32.7 g/dl (32.0-35.9); MEAN CELL VOLUME 90.9 fl (80-96); MEAN PLT VOLUME 8.5 fl (7.5-11.1); MONO % 10.4 % (3.8-10.2); NEUT % 78.2 % (42.8-82.8); PLATELET COUNT 607 10^3/uL (134-434); RBC 3.45 M/mm3 (4.00-5.60); RDW 15.1 % (11.9-15.9); WHITE BLOOD COUNT 7.9 K/mm3 (4.0-10.0)
[2022-03-20] MEDS: DOCUSATE SODIUM 100 MG CAPSULE (FP) PO SCH ×2 (09:25→21:01)
[2022-03-20] MEDS: SERTRALINE HCL 50 MG TABLET (FP) PO SCH (09:25)
[2022-03-20] MEDS: MULTIVITAMINS (DAILY MVI) TABLET (FP) PO SCH (09:25)
[2022-03-20] MEDS: ENOXAPARIN NA (PORCINE) 40 MG/0.4 ML DISP.SYRIN SQ SCH (09:26)
[2022-03-20] MEDS: ERTAPENEM SODIUM 1 GM in SODIUM CHLORIDE 50 ML IVPB SCH (09:26)
[2022-03-20] MEDS: PANTOPRAZOLE 40 MG TABLET PO SCH (09:26)
[2022-03-20] MEDS: POLYETHYLENE GLYCOL (HEALTHYLAX) 3350 17 GM PACKET PO SCH ×2 (09:26→21:04)
[2022-03-20 09:40] LABS: BLOOD UREA NITROGEN 17.7 mg/dL (7-18); MAGNESIUM 2.2 mg/dL (1.8-2.4)
[2022-03-20] MEDS: metoPROLOL SUCCINATE 25 MG TAB.SR.24H (FP) PO SCH ×2 (09:40→21:04)
[2022-03-20 09:41] LABS: PHOSPHOROUS 2.7 mg/dL (2.5-4.9)
[2022-03-20 09:42] LABS: TOT PROT 5.3 g/dl (6.4-8.2)
[2022-03-20 09:43] LABS: BILIRUBIN,TOTAL 0.4 mg/dL (0.2-1); CREATININE 0.9 mg/dL (0.55-1.3)
[2022-03-20] MEDS: SODIUM ZIRCONIUM CYCLOSILICATE (LOKELMA) 5 GM PACKET PO SCH (09:51)
[2022-03-20] MEDS ORDERED: SODIUM CHLORIDE 1,000 ML IV SCH (10:45)
[2022-03-20] MEDS ORDERED: KETOROLAC TROMETHAMINE 15 MG/ML VIAL IVPUSH ONE (20:19)
[2022-03-20] MEDS: LIDOCAINE PATCH REMOVAL MC SCH (21:05)
[2022-03-21 07:29] LABS: BASO % 0.7 % (0-2.0); HEMATOCRIT 29.7 % (35.4-49); HEMOGLOBIN 9.6 GM/dL (11.7-16.9); MCH 29.3 pg (25.7-33.7); MCHC 32.3 g/dl (32.0-35.9); MEAN CELL VOLUME 90.7 fl (80-96); MEAN PLT VOLUME 8.2 fl (7.5-11.1); NEUT % 76.3 % (42.8-82.8); PLATELET COUNT 575 10^3/uL (134-434); RBC 3.27 M/mm3 (4.00-5.60); RDW 15.2 % (11.9-15.9)
[2022-03-21 07:54] LABS: ALBUMIN 1.9 g/dl (3.4-5.0); BLOOD UREA NITROGEN 18.8 mg/dL (7-18); CALCIUM 7.8 mg/dL (8.5-10.1); MAGNESIUM 2.1 mg/dL (1.8-2.4)
[2022-03-21 07:57] LABS: CREATININE 0.8 mg/dL (0.55-1.3); PHOSPHOROUS 2.6 mg/dL (2.5-4.9)
[2022-03-21 07:59] LABS: BILIRUBIN,TOTAL 0.2 mg/dL (0.2-1)
[2022-03-21] MEDS: ERTAPENEM SODIUM 1 GM in SODIUM CHLORIDE 50 ML IVPB SCH (09:15)
[2022-03-21] MEDS: ENOXAPARIN NA (PORCINE) 40 MG/0.4 ML DISP.SYRIN SQ SCH (09:16)
[2022-03-21] MEDS: SERTRALINE HCL 50 MG TABLET (FP) PO SCH (09:16)
[2022-03-21] MEDS: MULTIVITAMINS (DAILY MVI) TABLET (FP) PO SCH (09:16)
[2022-03-21] MEDS: SODIUM ZIRCONIUM CYCLOSILICATE (LOKELMA) 5 GM PACKET PO SCH (09:16)
[2022-03-21] MEDS: PANTOPRAZOLE 40 MG TABLET PO SCH (09:16)
[2022-03-21] MEDS: DOCUSATE SODIUM 100 MG CAPSULE (FP) PO SCH ×2 (09:16→21:02)
[2022-03-21] MEDS: POLYETHYLENE GLYCOL (HEALTHYLAX) 3350 17 GM PACKET PO SCH ×2 (09:16→21:02)
[2022-03-21] MEDS: metoPROLOL SUCCINATE 25 MG TAB.SR.24H (FP) PO SCH ×2 (09:17→21:02)
[2022-03-21] MEDS ORDERED: APIXABAN 5 MG TABLET PO SCH (10:00)
[2022-03-21] MEDS: MIDODRINE HCL 5 MG TABLET PO SCH ×2 (14:48→17:36)
[2022-03-22 08:45] LABS: BASO % 0.8 % (0-2.0); EOS % 1.2 % (0-4.5); HEMATOCRIT 34.2 % (35.4-49); HEMOGLOBIN 11.1 GM/dL (11.7-16.9); LYMPH % 10.7 % (8-40); MCH 29.6 pg (25.7-33.7); MCHC 32.4 g/dl (32.0-35.9); MEAN CELL VOLUME 91.4 fl (80-96); MEAN PLT VOLUME 8.1 fl (7.5-11.1); MONO % 7.7 % (3.8-10.2); NEUT % 79.6 % (42.8-82.8); PLATELET COUNT 673 10^3/uL (134-434); RBC 3.74 M/mm3 (4.00-5.60); RDW 15.2 % (11.9-15.9); WHITE BLOOD COUNT 8.2 K/mm3 (4.0-10.0)
[2022-03-22 09:14] LABS: BLOOD UREA NITROGEN 13.7 mg/dL (7-18); CALCIUM 8.5 mg/dL (8.5-10.1)
[2022-03-22 09:17] LABS: ALBUMIN 2.2 g/dl (3.4-5.0); CREATININE 0.9 mg/dL (0.55-1.3)
[2022-03-22 09:18] LABS: BILIRUBIN,TOTAL 0.4 mg/dL (0.2-1)
[2022-03-22 09:21] LABS: TOT PROT 5.8 g/dl (6.4-8.2)
[2022-03-22] MEDS: SODIUM ZIRCONIUM CYCLOSILICATE (LOKELMA) 5 GM PACKET PO SCH (10:57)
[2022-03-22] MEDS: POLYETHYLENE GLYCOL (HEALTHYLAX) 3350 17 GM PACKET PO SCH ×2 (10:57→21:21)
[2022-03-22] MEDS: DOCUSATE SODIUM 100 MG CAPSULE (FP) PO SCH ×2 (10:57→21:21)
[2022-03-22] MEDS: MULTIVITAMINS (DAILY MVI) TABLET (FP) PO SCH (10:57)
[2022-03-22] MEDS: ERTAPENEM SODIUM 1 GM in SODIUM CHLORIDE 50 ML IVPB SCH (10:57)
[2022-03-22] MEDS: PANTOPRAZOLE 40 MG TABLET PO SCH (10:57)
[2022-03-22] MEDS: ENOXAPARIN NA (PORCINE) 40 MG/0.4 ML DISP.SYRIN SQ SCH (10:57)
[2022-03-22] MEDS: MIDODRINE HCL 5 MG TABLET PO SCH ×3 (10:57→17:13)
[2022-03-22] MEDS: metoPROLOL SUCCINATE 25 MG TAB.SR.24H (FP) PO SCH ×2 (10:58→21:21)
[2022-03-22] MEDS: SERTRALINE HCL 50 MG TABLET (FP) PO SCH (10:58)
[2022-03-22] MEDS ORDERED: APIXABAN 5 MG TABLET PO SCH (12:45)
[2022-03-22] MEDS: APIXABAN 2.5 MG TABLET PO SCH ×2 (13:33→21:21)
[2022-03-23] MEDS ORDERED: SODIUM CHLORIDE 500 ML IV STA (08:58)
[2022-03-23] MEDS: POLYETHYLENE GLYCOL (HEALTHYLAX) 3350 17 GM PACKET PO SCH ×2 (09:37→21:09)
[2022-03-23] MEDS: DOCUSATE SODIUM 100 MG CAPSULE (FP) PO SCH ×2 (09:37→21:09)
[2022-03-23] MEDS: PANTOPRAZOLE 40 MG TABLET PO SCH (09:37)
[2022-03-23] MEDS: ERTAPENEM SODIUM 1 GM in SODIUM CHLORIDE 50 ML IVPB SCH (09:37)
[2022-03-23] MEDS: MIDODRINE HCL 5 MG TABLET PO SCH ×3 (09:37→17:44)
[2022-03-23] MEDS: SERTRALINE HCL 50 MG TABLET (FP) PO SCH (09:37)
[2022-03-23] MEDS: SODIUM ZIRCONIUM CYCLOSILICATE (LOKELMA) 5 GM PACKET PO SCH (09:37)
[2022-03-23] MEDS: APIXABAN 2.5 MG TABLET PO SCH ×2 (09:37→21:09)
[2022-03-23] MEDS: MULTIVITAMINS (DAILY MVI) TABLET (FP) PO SCH (09:37)
[2022-03-23] MEDS: metoPROLOL SUCCINATE 25 MG TAB.SR.24H (FP) PO SCH ×3 (09:37→21:09)
[2022-03-23 14:13] LABS: BASO % 0.6 % (0-2.0); HEMATOCRIT 35.2 % (35.4-49); HEMOGLOBIN 11.2 GM/dL (11.7-16.9); LYMPH % 11.2 % (8-40); MCH 29.3 pg (25.7-33.7); MEAN CELL VOLUME 91.6 fl (80-96); MEAN PLT VOLUME 8.3 fl (7.5-11.1); MONO % 10.6 % (3.8-10.2); NEUT % 75.6 % (42.8-82.8); PLATELET COUNT 657 10^3/uL (134-434); RBC 3.84 M/mm3 (4.00-5.60); RDW 15.3 % (11.9-15.9); WHITE BLOOD COUNT 9.4 K/mm3 (4.0-10.0)
[2022-03-23 14:28] LABS: ALBUMIN 2.2 g/dl (3.4-5.0); CALCIUM 8.3 mg/dL (8.5-10.1)
[2022-03-23 14:29] LABS: BLOOD UREA NITROGEN 15.1 mg/dL (7-18)
[2022-03-23 14:33] LABS: BILIRUBIN,TOTAL 0.3 mg/dL (0.2-1); TOT PROT 5.8 g/dl (6.4-8.2)
[2022-03-23 14:36] LABS: CREATININE 0.9 mg/dL (0.55-1.3)
[2022-03-24 09:01] LABS: BASO % 0.8 % (0-2.0); EOS % 1.5 % (0-4.5); HEMATOCRIT 33.1 % (35.4-49); HEMOGLOBIN 10.7 GM/dL (11.7-16.9); LYMPH % 6.8 % (8-40); MCH 29.9 pg (25.7-33.7); MCHC 32.4 g/dl (32.0-35.9); MEAN CELL VOLUME 92.3 fl (80-96); MEAN PLT VOLUME 8.2 fl (7.5-11.1); MONO % 8.8 % (3.8-10.2); NEUT % 82.1 % (42.8-82.8); PLATELET COUNT 594 10^3/uL (134-434); RBC 3.58 M/mm3 (4.00-5.60); WHITE BLOOD COUNT 9.4 K/mm3 (4.0-10.0)
[2022-03-24 09:28] LABS: BLOOD UREA NITROGEN 13.3 mg/dL (7-18); CALCIUM 8.1 mg/dL (8.5-10.1); MAGNESIUM 1.9 mg/dL (1.8-2.4)
[2022-03-24 09:31] LABS: CREATININE 0.8 mg/dL (0.55-1.3); PHOSPHOROUS 2.8 mg/dL (2.5-4.9)
[2022-03-24 09:33] LABS: BILIRUBIN,TOTAL 0.7 mg/dL (0.2-1); TOT PROT 5.4 g/dl (6.4-8.2)
[2022-03-24] MEDS: SERTRALINE HCL 50 MG TABLET (FP) PO SCH (10:13)
[2022-03-24] MEDS: MIDODRINE HCL 5 MG TABLET PO SCH ×3 (10:13→17:39)
[2022-03-24] MEDS: metoPROLOL SUCCINATE 25 MG TAB.SR.24H (FP) PO SCH ×2 (10:13→21:48)
[2022-03-24] MEDS: APIXABAN 2.5 MG TABLET PO SCH ×2 (10:13→21:48)
[2022-03-24] MEDS: SODIUM ZIRCONIUM CYCLOSILICATE (LOKELMA) 5 GM PACKET PO SCH (10:13)
[2022-03-24] MEDS: DOCUSATE SODIUM 100 MG CAPSULE (FP) PO SCH ×2 (10:13→21:47)
[2022-03-24] MEDS: MULTIVITAMINS (DAILY MVI) TABLET (FP) PO SCH (10:13)
[2022-03-24] MEDS: PANTOPRAZOLE 40 MG TABLET PO SCH (10:13)
[2022-03-24] MEDS: ERTAPENEM SODIUM 1 GM in SODIUM CHLORIDE 50 ML IVPB SCH (10:14)
[2022-03-24] MEDS: POLYETHYLENE GLYCOL (HEALTHYLAX) 3350 17 GM PACKET PO SCH ×2 (10:45→21:48)
[2022-03-25 08:03] LABS: ALBUMIN 2.3 g/dl (3.4-5.0); CALCIUM 8.8 mg/dL (8.5-10.1)
[2022-03-25 08:06] LABS: PHOSPHOROUS 2.7 mg/dL (2.5-4.9)
[2022-03-25 08:07] LABS: CREATININE 0.8 mg/dL (0.55-1.3)
[2022-03-25 08:08] LABS: BILIRUBIN,TOTAL 0.4 mg/dL (0.2-1); TOT PROT 5.7 g/dl (6.4-8.2)
[2022-03-25 08:14] LABS: EOS % 1.6 % (0-4.5); HEMATOCRIT 35.5 % (35.4-49); HEMOGLOBIN 11.5 GM/dL (11.7-16.9); LYMPH % 8.3 % (8-40); MCH 29.7 pg (25.7-33.7); MCHC 32.6 g/dl (32.0-35.9); MEAN CELL VOLUME 91.1 fl (80-96); MEAN PLT VOLUME 8.5 fl (7.5-11.1); MONO % 9.1 % (3.8-10.2); PLATELET COUNT 627 10^3/uL (134-434); RBC 3.89 M/mm3 (4.00-5.60); RDW 15.3 % (11.9-15.9); WHITE BLOOD COUNT 8.9 K/mm3 (4.0-10.0)
[2022-03-25] MEDS: APIXABAN 2.5 MG TABLET PO SCH ×2 (09:26→21:19)
[2022-03-25] MEDS: MIDODRINE HCL 5 MG TABLET PO SCH ×3 (09:26→17:44)
[2022-03-25] MEDS: PANTOPRAZOLE 40 MG TABLET PO SCH (09:26)
[2022-03-25] MEDS: DOCUSATE SODIUM 100 MG CAPSULE (FP) PO SCH ×2 (09:26→21:19)
[2022-03-25] MEDS: SERTRALINE HCL 50 MG TABLET (FP) PO SCH (09:26)
[2022-03-25] MEDS: metoPROLOL SUCCINATE 25 MG TAB.SR.24H (FP) PO SCH ×2 (09:26→21:20)
[2022-03-25] MEDS: SODIUM ZIRCONIUM CYCLOSILICATE (LOKELMA) 5 GM PACKET PO SCH (09:27)
[2022-03-25] MEDS: POLYETHYLENE GLYCOL (HEALTHYLAX) 3350 17 GM PACKET PO SCH ×3 (09:27→21:25)
[2022-03-25] MEDS: MULTIVITAMINS (DAILY MVI) TABLET (FP) PO SCH (09:28)
[2022-03-25] MEDS: ERTAPENEM SODIUM 1 GM in SODIUM CHLORIDE 50 ML IVPB SCH (09:28)
[2022-03-25] MEDS ORDERED: ONDANSETRON 4 MG/2 ML VIAL IVPUSH ONE (15:56)
[2022-03-25] MEDS ORDERED: ACETAMINOPHEN 1000 MG/100 ML BAG IVPB ONE (17:04)
[2022-03-25] MEDS ORDERED: LORazepam 2 MG/ML SDV VIAL IVPUSH PRN ×2 (17:44→17:47)
[2022-03-26 07:19] LABS: BASO % 0.5 % (0-2.0); EOS % 0.6 % (0-4.5); HEMATOCRIT 34.1 % (35.4-49); HEMOGLOBIN 11.2 GM/dL (11.7-16.9); LYMPH % 6.4 % (8-40); MCHC 32.9 g/dl (32.0-35.9); MEAN CELL VOLUME 91.2 fl (80-96); MEAN PLT VOLUME 8.3 fl (7.5-11.1); MONO % 7.7 % (3.8-10.2); NEUT % 84.8 % (42.8-82.8); PLATELET COUNT 579 10^3/uL (134-434); RBC 3.74 M/mm3 (4.00-5.60); RDW 15.6 % (11.9-15.9); WHITE BLOOD COUNT 11.6 K/mm3 (4.0-10.0)
[2022-03-26 08:01] LABS: CREATININE 0.9 mg/dL (0.55-1.3)
[2022-03-26 08:03] LABS: TOT PROT 5.9 g/dl (6.4-8.2)
[2022-03-26 09:34] LABS: ALBUMIN 2.4 g/dl (3.4-5.0); BILIRUBIN,TOTAL 0.4 mg/dL (0.2-1); BLOOD UREA NITROGEN 17.9 mg/dL (7-18); CALCIUM 8.7 mg/dL (8.5-10.1); MAGNESIUM 1.9 mg/dL (1.8-2.4); PHOSPHOROUS 2.9 mg/dL (2.5-4.9)
[2022-03-26] MEDS: PANTOPRAZOLE 40 MG TABLET PO SCH (10:08)
[2022-03-26] MEDS: APIXABAN 2.5 MG TABLET PO SCH ×2 (10:08→23:10)
[2022-03-26] MEDS: MIDODRINE HCL 5 MG TABLET PO SCH ×2 (10:08→14:09)
[2022-03-26] MEDS: metoPROLOL SUCCINATE 25 MG TAB.SR.24H (FP) PO SCH ×2 (10:09→23:10)
[2022-03-26] MEDS: DOCUSATE SODIUM 100 MG CAPSULE (FP) PO SCH ×3 (10:09→23:12)
[2022-03-26] MEDS: ERTAPENEM SODIUM 1 GM in SODIUM CHLORIDE 50 ML IVPB SCH (10:10)
[2022-03-26] MEDS: MULTIVITAMINS (DAILY MVI) TABLET (FP) PO SCH (10:10)
[2022-03-26] MEDS: SERTRALINE HCL 50 MG TABLET (FP) PO SCH (10:25)
[2022-03-26] MEDS: POLYETHYLENE GLYCOL (HEALTHYLAX) 3350 17 GM PACKET PO SCH ×2 (11:22→23:04)
[2022-03-26] MEDS ORDERED: AMIODARONE HCL 150 MG/3 ML VIAL IVPUSH ONE ×3 (17:20→21:05)
[2022-03-26] MEDS ORDERED: AMIODARONE IN DEXTROSE,ISO-OSM 360 MG/200 ML BAG ONE (17:35)
[2022-03-26] MEDS ORDERED: AMIODARONE IN DEXTROSE,ISO-OSM 150 MG/100 ML BAG IVPB ONE (17:45)
[2022-03-26] MEDS ORDERED: SODIUM CHLORIDE 1,000 ML IV STA ×3 (17:53→18:33)
[2022-03-26] MEDS ORDERED: AMIODARONE IN DEXTROSE,ISO-OSM 360 MG/200 ML BAG IVPB ONE ×2 (17:55→23:55)
[2022-03-26] MEDS ORDERED: PHENYLEPHRINE NS PREMIX 50,000 MCG/500 ML BAG CVP SCH (18:15)
[2022-03-26] MEDS ORDERED: MAGNESIUM SULF 50% (8.12 MEQ/2 ML-1 GM VIAL) IVPB ONE ×2 (18:24→21:29)
[2022-03-26] MEDS ORDERED: ACETAMINOPHEN 1000 MG/100 ML BAG IVPB ONE (18:30)
[2022-03-26] MEDS ORDERED: AMIODARONE IN DEXTROSE,ISO-OSM 360 MG/200 ML BAG IV SCH (18:30)
[2022-03-26] MEDS ORDERED: PHENYLEPHRINE HCL 50,000 MCG in SODIUM CHLORIDE 495 ML IV SCH (18:37)
[2022-03-26 20:06] LABS: CALCIUM 8.6 mg/dL (8.5-10.1)
[2022-03-26 20:09] LABS: BASO % 1.2 % (0-2.0); EOS % 0.8 % (0-4.5); HEMATOCRIT 37.2 % (35.4-49); HEMOGLOBIN 12.1 GM/dL (11.7-16.9); LYMPH % 7.6 % (8-40); MCH 30.3 pg (25.7-33.7); MCHC 32.6 g/dl (32.0-35.9); MEAN CELL VOLUME 92.9 fl (80-96); MEAN PLT VOLUME 9.2 fl (7.5-11.1); MONO % 8.1 % (3.8-10.2); NEUT % 82.3 % (42.8-82.8); PLATELET COUNT 600 10^3/uL (134-434); RDW 15.5 % (11.9-15.9); WHITE BLOOD COUNT 12.4 K/mm3 (4.0-10.0)
[2022-03-26 20:09] LABS: ALBUMIN 2.6 g/dl (3.4-5.0); BLOOD UREA NITROGEN 20.6 mg/dL (7-18)
[2022-03-26 20:10] LABS: CREATININE 1.2 mg/dL (0.55-1.3)
[2022-03-26 20:12] LABS: BILIRUBIN,TOTAL 0.4 mg/dL (0.2-1); TOT PROT 6.5 g/dl (6.4-8.2)
[2022-03-26 20:19] LABS: INR 1.6 (0.83-1.09); PROTHROMBIN TIME (PATIENT) 18.5 SEC (9.7-13.0)
[2022-03-26 20:22] LABS: ACTIVATED PTT 34.3 SECONDS (25.2-36.5)
[2022-03-26] MEDS ORDERED: CHLORHEXIDINE GLUCONATE 4% CLEANSER FOR DECOLONIZATION TP SCH (22:00)
[2022-03-26] MEDS: MUPIROCIN 2% TOPICAL OINTMENT FOR DECOLONIZATION NS SCH (22:03)
[2022-03-27] MEDS: MIDODRINE HCL 5 MG TABLET PO SCH ×4 (07:20→17:15)
[2022-03-27 07:35] LABS: BASO % 0.4 % (0-2.0); EOS % 1.2 % (0-4.5); HEMATOCRIT 32.2 % (35.4-49); HEMOGLOBIN 10.6 GM/dL (11.7-16.9); LYMPH % 6.8 % (8-40); MCHC 32.8 g/dl (32.0-35.9); MEAN CELL VOLUME 91.4 fl (80-96); MEAN PLT VOLUME 8.2 fl (7.5-11.1); MONO % 11.1 % (3.8-10.2); NEUT % 80.5 % (42.8-82.8); PLATELET COUNT 498 10^3/uL (134-434); RBC 3.53 M/mm3 (4.00-5.60); RDW 15.7 % (11.9-15.9); WHITE BLOOD COUNT 8.9 K/mm3 (4.0-10.0)
[2022-03-27 07:46] LABS: ALBUMIN 2.2 g/dl (3.4-5.0); BLOOD UREA NITROGEN 16.2 mg/dL (7-18); CALCIUM 8.1 mg/dL (8.5-10.1); MAGNESIUM 2.1 mg/dL (1.8-2.4)
[2022-03-27 07:49] LABS: CREATININE 0.9 mg/dL (0.55-1.3); PHOSPHOROUS 2.5 mg/dL (2.5-4.9)
[2022-03-27 07:51] LABS: BILIRUBIN,TOTAL 0.3 mg/dL (0.2-1); TOT PROT 5.3 g/dl (6.4-8.2)
[2022-03-27] MEDS: POLYETHYLENE GLYCOL (HEALTHYLAX) 3350 17 GM PACKET PO SCH ×2 (09:53→21:54)
[2022-03-27] MEDS: APIXABAN 2.5 MG TABLET PO SCH ×2 (09:53→21:54)
[2022-03-27] MEDS: DOCUSATE SODIUM 100 MG CAPSULE (FP) PO SCH ×2 (09:53→21:53)
[2022-03-27] MEDS: metoPROLOL SUCCINATE 25 MG TAB.SR.24H (FP) PO SCH ×2 (09:53→21:54)
[2022-03-27] MEDS: MUPIROCIN 2% TOPICAL OINTMENT FOR DECOLONIZATION NS SCH (09:54)
[2022-03-27] MEDS ORDERED: ERTAPENEM SODIUM 1 GM in SODIUM CHLORIDE 50 ML IVPB SCH (10:00)
[2022-03-27] MEDS ORDERED: PANTOPRAZOLE 40 MG TABLET PO SCH (10:00)
[2022-03-27] MEDS ORDERED: SERTRALINE HCL 50 MG TABLET (FP) PO SCH (10:00)
[2022-03-27] MEDS ORDERED: MULTIVITAMINS (DAILY MVI) TABLET (FP) PO SCH (10:00)
[2022-03-27] MEDS ORDERED: AMIODARONE HCL 200 MG TABLET PO SCH (18:00)
[2022-03-27] MEDS ORDERED: CHLORHEXIDINE GLUCONATE 4% CLEANSER FOR DECOLONIZATION TP SCH (22:00)
[2022-03-27] MEDS ORDERED: MUPIROCIN 2% TOPICAL OINTMENT FOR DECOLONIZATION NS SCH (22:00)
[2022-03-28 07:57] LABS: BASO % 0.7 % (0-2.0); EOS % 2.1 % (0-4.5); HEMATOCRIT 31.8 % (35.4-49); HEMOGLOBIN 10.6 GM/dL (11.7-16.9); LYMPH % 8.2 % (8-40); MCH 30.4 pg (25.7-33.7); MCHC 33.4 g/dl (32.0-35.9); MEAN PLT VOLUME 8.6 fl (7.5-11.1); MONO % 12.6 % (3.8-10.2); NEUT % 76.4 % (42.8-82.8); PLATELET COUNT 491 10^3/uL (134-434); RDW 15.8 % (11.9-15.9); WHITE BLOOD COUNT 8.7 K/mm3 (4.0-10.0)
[2022-03-28 08:24] LABS: CALCIUM 8.2 mg/dL (8.5-10.1)
[2022-03-28 08:25] LABS: ALBUMIN 2.4 g/dl (3.4-5.0); MAGNESIUM 1.9 mg/dL (1.8-2.4)
[2022-03-28 08:28] LABS: CREATININE 0.8 mg/dL (0.55-1.3); PHOSPHOROUS 2.2 mg/dL (2.5-4.9)
[2022-03-28 08:30] LABS: BILIRUBIN,TOTAL 0.4 mg/dL (0.2-1); TOT PROT 5.7 g/dl (6.4-8.2)
[2022-03-28] MEDS: ERTAPENEM SODIUM 1 GM in SODIUM CHLORIDE 50 ML IVPB SCH (12:21)
[2022-03-28] MEDS: POLYETHYLENE GLYCOL (HEALTHYLAX) 3350 17 GM PACKET PO SCH ×2 (12:21→22:20)
[2022-03-28] MEDS: APIXABAN 2.5 MG TABLET PO SCH ×2 (12:21→22:20)
[2022-03-28] MEDS: metoPROLOL SUCCINATE 25 MG TAB.SR.24H (FP) PO SCH ×2 (12:22→22:21)
[2022-03-28] MEDS: PANTOPRAZOLE 40 MG TABLET PO SCH (12:22)
[2022-03-28] MEDS: MIDODRINE HCL 5 MG TABLET PO SCH ×3 (12:22→17:58)
[2022-03-28] MEDS: SERTRALINE HCL 50 MG TABLET (FP) PO SCH (12:22)
[2022-03-28] MEDS: DOCUSATE SODIUM 100 MG CAPSULE (FP) PO SCH ×2 (12:22→22:20)
[2022-03-28] MEDS: AMIODARONE HCL 200 MG TABLET PO SCH (12:22)
[2022-03-28] MEDS: MULTIVITAMINS (DAILY MVI) TABLET (FP) PO SCH (12:23)
[2022-03-29] MEDS ORDERED: ONDANSETRON 4 MG/2 ML VIAL IVPUSH PRN (08:05)
[2022-03-29 08:27] LABS: BASO % 0.3 % (0-2.0); HEMATOCRIT 36.4 % (35.4-49); HEMOGLOBIN 11.9 GM/dL (11.7-16.9); LYMPH % 8.3 % (8-40); MCH 30.1 pg (25.7-33.7); MCHC 32.8 g/dl (32.0-35.9); MEAN CELL VOLUME 91.9 fl (80-96); MEAN PLT VOLUME 8.6 fl (7.5-11.1); MONO % 12.9 % (3.8-10.2); NEUT % 77.5 % (42.8-82.8); PLATELET COUNT 524 10^3/uL (134-434); RBC 3.96 M/mm3 (4.00-5.60); RDW 16.1 % (11.9-15.9); WHITE BLOOD COUNT 7.4 K/mm3 (4.0-10.0)
[2022-03-29 08:44] LABS: CALCIUM 8.5 mg/dL (8.5-10.1); MAGNESIUM 1.8 mg/dL (1.8-2.4)
[2022-03-29 08:45] LABS: BLOOD UREA NITROGEN 16.6 mg/dL (7-18)
[2022-03-29 08:48] LABS: CREATININE 0.9 mg/dL (0.55-1.3); PHOSPHOROUS 2.3 mg/dL (2.5-4.9)
[2022-03-29] MEDS: ERTAPENEM SODIUM 1 GM in SODIUM CHLORIDE 50 ML IVPB SCH (10:17)
[2022-03-29] MEDS: MIDODRINE HCL 5 MG TABLET PO SCH ×3 (10:18→17:38)
[2022-03-29] MEDS: SERTRALINE HCL 50 MG TABLET (FP) PO SCH (10:18)
[2022-03-29] MEDS: PANTOPRAZOLE 40 MG TABLET PO SCH (10:18)
[2022-03-29] MEDS: APIXABAN 2.5 MG TABLET PO SCH ×2 (10:18→21:26)
[2022-03-29] MEDS: MULTIVITAMINS (DAILY MVI) TABLET (FP) PO SCH (10:18)
[2022-03-29] MEDS: DOCUSATE SODIUM 100 MG CAPSULE (FP) PO SCH ×2 (10:18→21:26)
[2022-03-29] MEDS: metoPROLOL SUCCINATE 25 MG TAB.SR.24H (FP) PO SCH ×2 (10:18→21:27)
[2022-03-29] MEDS: AMIODARONE HCL 200 MG TABLET PO SCH (10:18)
[2022-03-29] MEDS: LACTOBACILLUS ACIDOPHILUS 1 TABLET PO SCH (10:18)
[2022-03-29] MEDS: NAPH,MB-DB/K PH,MBDB POWDER PACKET PO SCH ×2 (11:45→21:27)
[2022-03-29] MEDS: POLYETHYLENE GLYCOL (HEALTHYLAX) 3350 17 GM PACKET PO SCH ×2 (13:34→21:27)
[2022-03-29] MEDS: ONDANSETRON 4 MG/2 ML VIAL IVPUSH SCH (17:38)
[2022-03-30] MEDS ORDERED: DIGOXIN 0.5 MG/2 ML AMPUL IVPUSH ONE ×3 (05:30→17:33)
[2022-03-30] MEDS ORDERED: SODIUM CHLORIDE 1,000 ML IV STA ×2 (05:30→05:35)
[2022-03-30] MEDS ORDERED: dilTIAZem HCL 50 MG/10 ML - 10 ML VIAL IVPUSH ONE (05:38)
[2022-03-30] MEDS ORDERED: AMIODARONE HCL 150 MG/3 ML VIAL IVPUSH ONE (05:42)
[2022-03-30] MEDS: dilTIAZem HCL 30 MG TABLET PO SCH ×3 (06:28→11:07)
[2022-03-30] MEDS: POLYETHYLENE GLYCOL (HEALTHYLAX) 3350 17 GM PACKET PO SCH ×3 (06:29→21:26)
[2022-03-30] MEDS: ONDANSETRON 4 MG/2 ML VIAL IVPUSH SCH ×3 (07:41→17:28)
[2022-03-30 08:38] LABS: BASO % 0.4 % (0-2.0); EOS % 1.1 % (0-4.5); HEMATOCRIT 34.4 % (35.4-49); HEMOGLOBIN 11.2 GM/dL (11.7-16.9); MCH 29.8 pg (25.7-33.7); MCHC 32.4 g/dl (32.0-35.9); MEAN PLT VOLUME 8.4 fl (7.5-11.1); MONO % 14.7 % (3.8-10.2); NEUT % 76.8 % (42.8-82.8); PLATELET COUNT 460 10^3/uL (134-434); RBC 3.74 M/mm3 (4.00-5.60); RDW 16.4 % (11.9-15.9); WHITE BLOOD COUNT 7.5 K/mm3 (4.0-10.0)
[2022-03-30 08:50] LABS: BLOOD UREA NITROGEN 15.5 mg/dL (7-18); CALCIUM 8.3 mg/dL (8.5-10.1)
[2022-03-30 08:53] LABS: MAGNESIUM 1.8 mg/dL (1.8-2.4)
[2022-03-30 08:55] LABS: CREATININE 0.9 mg/dL (0.55-1.3); PHOSPHOROUS 2.3 mg/dL (2.5-4.9)
[2022-03-30] MEDS: metoPROLOL SUCCINATE 25 MG TAB.SR.24H (FP) PO SCH (09:47)
[2022-03-30] MEDS: AMIODARONE HCL 200 MG TABLET PO SCH (09:47)
[2022-03-30] MEDS: PANTOPRAZOLE 40 MG TABLET PO SCH (09:47)
[2022-03-30] MEDS: NAPH,MB-DB/K PH,MBDB POWDER PACKET PO SCH (09:47)
[2022-03-30] MEDS: MIDODRINE HCL 5 MG TABLET PO SCH ×3 (09:48→17:28)
[2022-03-30] MEDS: DOCUSATE SODIUM 100 MG CAPSULE (FP) PO SCH ×2 (09:48→21:26)
[2022-03-30] MEDS: LACTOBACILLUS ACIDOPHILUS 1 TABLET PO SCH (09:48)
[2022-03-30] MEDS: SERTRALINE HCL 50 MG TABLET (FP) PO SCH (09:48)
[2022-03-30] MEDS: APIXABAN 2.5 MG TABLET PO SCH ×2 (09:48→21:26)
[2022-03-30] MEDS: MULTIVITAMINS (DAILY MVI) TABLET (FP) PO SCH (09:48)
[2022-03-30] MEDS: ERTAPENEM SODIUM 1 GM in SODIUM CHLORIDE 50 ML IVPB SCH (09:52)
[2022-03-30] MEDS ORDERED: SODIUM CHLORIDE 500 ML IV STA (11:19)
[2022-03-31] MEDS: POLYETHYLENE GLYCOL (HEALTHYLAX) 3350 17 GM PACKET PO SCH ×3 (06:41→22:13)
[2022-03-31] MEDS: ONDANSETRON 4 MG/2 ML VIAL IVPUSH SCH ×2 (06:42→12:05)
[2022-03-31 07:46] LABS: BASO % 0.9 % (0-2.0); EOS % 2.8 % (0-4.5); HEMATOCRIT 36.3 % (35.4-49); HEMOGLOBIN 11.8 GM/dL (11.7-16.9); MCH 30.1 pg (25.7-33.7); MCHC 32.6 g/dl (32.0-35.9); MEAN CELL VOLUME 92.5 fl (80-96); MEAN PLT VOLUME 8.8 fl (7.5-11.1); MONO % 16.2 % (3.8-10.2); NEUT % 70.1 % (42.8-82.8); PLATELET COUNT 420 10^3/uL (134-434); RBC 3.93 M/mm3 (4.00-5.60); RDW 16.1 % (11.9-15.9); WHITE BLOOD COUNT 7.3 K/mm3 (4.0-10.0)
[2022-03-31] MEDS ORDERED: MIDODRINE HCL 5 MG TABLET PO PRN (07:54)
[2022-03-31 08:09] LABS: ALBUMIN 2.5 g/dl (3.4-5.0); BLOOD UREA NITROGEN 15.8 mg/dL (7-18); CALCIUM 8.4 mg/dL (8.5-10.1)
[2022-03-31 08:10] LABS: MAGNESIUM 1.9 mg/dL (1.8-2.4)
[2022-03-31 08:12] LABS: CREATININE 0.8 mg/dL (0.55-1.3); PHOSPHOROUS 2.5 mg/dL (2.5-4.9)
[2022-03-31 08:14] LABS: BILIRUBIN,TOTAL 0.9 mg/dL (0.2-1)
[2022-03-31] MEDS ORDERED: DIGOXIN 0.125 MG TABLET PO SCH (10:00)
[2022-03-31] MEDS: APIXABAN 2.5 MG TABLET PO SCH ×2 (10:11→22:13)
[2022-03-31] MEDS: MULTIVITAMINS (DAILY MVI) TABLET (FP) PO SCH (10:11)
[2022-03-31] MEDS: LACTOBACILLUS ACIDOPHILUS 1 TABLET PO SCH (10:11)
[2022-03-31] MEDS: PANTOPRAZOLE 40 MG TABLET PO SCH (10:11)
[2022-03-31] MEDS: SERTRALINE HCL 50 MG TABLET (FP) PO SCH (10:11)
[2022-03-31] MEDS: DOCUSATE SODIUM 100 MG CAPSULE (FP) PO SCH ×2 (10:11→22:13)
[2022-03-31] MEDS: AMIODARONE HCL 200 MG TABLET PO SCH (10:20)
[2022-03-31] MEDS: ERTAPENEM SODIUM 1 GM in SODIUM CHLORIDE 50 ML IVPB SCH (10:23)
[2022-03-31] MEDS ORDERED: ONDANSETRON 4 MG/2 ML VIAL IVPUSH PRN (14:04)
[2022-03-31] MEDS: MIDODRINE HCL 5 MG TABLET PO SCH (17:44)
[2022-04-01] MEDS: POLYETHYLENE GLYCOL (HEALTHYLAX) 3350 17 GM PACKET PO SCH ×3 (05:23→21:42)
[2022-04-01] MEDS: LACTOBACILLUS ACIDOPHILUS 1 TABLET PO SCH (09:07)
[2022-04-01] MEDS: SERTRALINE HCL 50 MG TABLET (FP) PO SCH (09:07)
[2022-04-01] MEDS: MIDODRINE HCL 5 MG TABLET PO SCH ×3 (09:07→17:51)
[2022-04-01] MEDS: MULTIVITAMINS (DAILY MVI) TABLET (FP) PO SCH (09:08)
[2022-04-01] MEDS: APIXABAN 2.5 MG TABLET PO SCH ×2 (09:08→21:42)
[2022-04-01] MEDS: AMIODARONE HCL 200 MG TABLET PO SCH (09:08)
[2022-04-01] MEDS: PANTOPRAZOLE 40 MG TABLET PO SCH (09:08)
[2022-04-01] MEDS: DOCUSATE SODIUM 100 MG CAPSULE (FP) PO SCH ×2 (09:08→21:42)
[2022-04-01 09:17] LABS: CALCIUM 8.2 mg/dL (8.5-10.1)
[2022-04-01 09:18] LABS: ALBUMIN 2.5 g/dl (3.4-5.0); BLOOD UREA NITROGEN 14.2 mg/dL (7-18); MAGNESIUM 1.8 mg/dL (1.8-2.4)
[2022-04-01 09:20] LABS: TOT PROT 5.9 g/dl (6.4-8.2)
[2022-04-01 09:21] LABS: CREATININE 0.8 mg/dL (0.55-1.3); PHOSPHOROUS 2.3 mg/dL (2.5-4.9)
[2022-04-01 09:22] LABS: BILIRUBIN,TOTAL 0.6 mg/dL (0.2-1)
[2022-04-01] MEDS: ERTAPENEM SODIUM 1 GM in SODIUM CHLORIDE 50 ML IVPB SCH (09:37)
[2022-04-01] MEDS: NAPH,MB-DB/K PH,MBDB POWDER PACKET PO SCH (13:44)
[2022-04-01 17:49] LABS: PH,URINE 5.5 (5.0-8.0); URINE APPEARANCE CLEAR; URINE BILIRUBIN NEGATIVE (NEGATIVE); URINE COLOR DK YELLOW; URINE GLUCOSE (UA) NEGATIVE (NEGATIVE); URINE KETONE 1+ (NEGATIVE); URINE LEUK ESTERASE NEGATIVE (NEGATIVE); URINE NITRITE NEGATIVE (NEGATIVE); URINE PROTEIN TRACE (NEGATIVE); URINE UROBILINOGEN 0.2 mg/dL (0.2-1.0)
[2022-04-02] MEDS: POLYETHYLENE GLYCOL (HEALTHYLAX) 3350 17 GM PACKET PO SCH ×3 (05:46→21:58)
[2022-04-02 08:19] LABS: CALCIUM 8.6 mg/dL (8.5-10.1)
[2022-04-02 08:20] LABS: ALBUMIN 2.9 g/dl (3.4-5.0); BLOOD UREA NITROGEN 13.1 mg/dL (7-18); MAGNESIUM 1.6 mg/dL (1.8-2.4)
[2022-04-02 08:22] LABS: CREATININE 0.8 mg/dL (0.55-1.3); PHOSPHOROUS 2.2 mg/dL (2.5-4.9)
[2022-04-02 08:24] LABS: TOT PROT 6.6 g/dl (6.4-8.2)
[2022-04-02 08:26] LABS: BASO % 0.2 % (0-2.0); EOS % 1.3 % (0-4.5); HEMATOCRIT 36.5 % (35.4-49); LYMPH % 8.5 % (8-40); MCH 30.5 pg (25.7-33.7); MCHC 32.9 g/dl (32.0-35.9); MEAN CELL VOLUME 92.7 fl (80-96); MEAN PLT VOLUME 9.5 fl (7.5-11.1); MONO % 13.5 % (3.8-10.2); NEUT % 76.5 % (42.8-82.8); PLATELET COUNT 398 10^3/uL (134-434); RBC 3.94 M/mm3 (4.00-5.60); RDW 16.1 % (11.9-15.9); WHITE BLOOD COUNT 9.8 K/mm3 (4.0-10.0)
[2022-04-02 08:31] LABS: BILIRUBIN,TOTAL 0.5 mg/dL (0.2-1)
[2022-04-02] MEDS: NAPH,MB-DB/K PH,MBDB POWDER PACKET PO SCH (10:07)
[2022-04-02] MEDS: MIDODRINE HCL 5 MG TABLET PO SCH ×3 (10:07→17:52)
[2022-04-02] MEDS: LACTOBACILLUS ACIDOPHILUS 1 TABLET PO SCH (10:07)
[2022-04-02] MEDS: DOCUSATE SODIUM 100 MG CAPSULE (FP) PO SCH ×2 (10:07→21:58)
[2022-04-02] MEDS: SERTRALINE HCL 50 MG TABLET (FP) PO SCH (10:07)
[2022-04-02] MEDS: AMIODARONE HCL 200 MG TABLET PO SCH (10:07)
[2022-04-02] MEDS: PANTOPRAZOLE 40 MG TABLET PO SCH (10:07)
[2022-04-02] MEDS: MULTIVITAMINS (DAILY MVI) TABLET (FP) PO SCH (10:07)
[2022-04-02] MEDS ORDERED: MAGNESIUM SULF 50% (8.12 MEQ/2 ML-1 GM VIAL) IVPB ONE (17:49)
[2022-04-02] MEDS: SODIUM CHLORIDE 1,000 ML IV SCH (17:52)
[2022-04-02] MEDS ORDERED: SODIUM PHOSPHATE - 15 MM in DEXTROSE 5%-WATER - 250 ML IVPB ONE (18:30)
[2022-04-03] MEDS: POLYETHYLENE GLYCOL (HEALTHYLAX) 3350 17 GM PACKET PO SCH ×3 (05:52→21:38)
[2022-04-03 08:29] LABS: BASO % 0.6 % (0-2.0); EOS % 2.2 % (0-4.5); HEMATOCRIT 32.7 % (35.4-49); HEMOGLOBIN 10.8 GM/dL (11.7-16.9); LYMPH % 11.3 % (8-40); MCH 30.5 pg (25.7-33.7); MCHC 33.1 g/dl (32.0-35.9); MEAN CELL VOLUME 92.1 fl (80-96); MEAN PLT VOLUME 9.2 fl (7.5-11.1); NEUT % 69.9 % (42.8-82.8); PLATELET COUNT 373 10^3/uL (134-434); RBC 3.55 M/mm3 (4.00-5.60); RDW 16.2 % (11.9-15.9); WHITE BLOOD COUNT 9.6 K/mm3 (4.0-10.0)
[2022-04-03 08:32] LABS: INR 1.7 (0.83-1.09); PROTHROMBIN TIME (PATIENT) 19.6 SEC (9.7-13.0)
[2022-04-03 08:48] LABS: CALCIUM 8.2 mg/dL (8.5-10.1)
[2022-04-03 08:49] LABS: ALBUMIN 2.7 g/dl (3.4-5.0); BLOOD UREA NITROGEN 9.9 mg/dL (7-18); MAGNESIUM 1.7 mg/dL (1.8-2.4)
[2022-04-03 08:52] LABS: PHOSPHOROUS 3.2 mg/dL (2.5-4.9)
[2022-04-03 08:53] LABS: BILIRUBIN,TOTAL 0.6 mg/dL (0.2-1)
[2022-04-03] MEDS ORDERED: SODIUM CHLORIDE 0.9% 1000 ML INFUS.BAG IV ONE (09:00)
[2022-04-03] MEDS: AMIODARONE HCL 200 MG TABLET PO SCH ×2 (10:00→11:51)
[2022-04-03] MEDS: SERTRALINE HCL 50 MG TABLET (FP) PO SCH ×2 (10:00→11:51)
[2022-04-03] MEDS: MIDODRINE HCL 5 MG TABLET PO SCH ×4 (10:00→17:11)
[2022-04-03] MEDS: LACTOBACILLUS ACIDOPHILUS 1 TABLET PO SCH ×2 (10:00→11:52)
[2022-04-03] MEDS: PANTOPRAZOLE 40 MG TABLET PO SCH ×2 (10:00→11:52)
[2022-04-03] MEDS: MULTIVITAMINS (DAILY MVI) TABLET (FP) PO SCH ×3 (10:00→11:51)
[2022-04-03] MEDS: DOCUSATE SODIUM 100 MG CAPSULE (FP) PO SCH ×3 (10:00→21:37)
[2022-04-03] MEDS: NAPH,MB-DB/K PH,MBDB POWDER PACKET PO SCH (10:00)
[2022-04-03] MEDS: SODIUM CHLORIDE 1,000 ML IV SCH ×3 (11:43→21:46)
[2022-04-03] MEDS ORDERED: HALOPERIDOL LACTATE 5 MG/ML IM ONE (14:15)
[2022-04-03] MEDS: THIAMINE HCL 200 MG/2 ML VIAL IVPB SCH (14:52)
[2022-04-03] MEDS ORDERED: MULTIVIT INJ. ADULT COMBO WITH VIT K 1 COMBO 10 ML VIAL IV SCH (16:00)
[2022-04-03] MEDS ORDERED: AMINO ACIDS 4.25%/D5W 1,000 ML IV SCH (17:30)
[2022-04-04] MEDS: POLYETHYLENE GLYCOL (HEALTHYLAX) 3350 17 GM PACKET PO SCH (05:55)
[2022-04-04 08:22] LABS: BASO % 0.6 % (0-2.0); EOS % 0.4 % (0-4.5); HEMATOCRIT 27.5 % (35.4-49); HEMOGLOBIN 9.4 GM/dL (11.7-16.9); MCH 31.2 pg (25.7-33.7); MEAN CELL VOLUME 91.6 fl (80-96); MEAN PLT VOLUME 9.1 fl (7.5-11.1); MONO % 12.7 % (3.8-10.2); NEUT % 82.3 % (42.8-82.8); PLATELET COUNT 272 10^3/uL (134-434); WHITE BLOOD COUNT 8.8 K/mm3 (4.0-10.0)
[2022-04-04 08:48] LABS: ALBUMIN 2.4 g/dl (3.4-5.0); BLOOD UREA NITROGEN 12.6 mg/dL (7-18); CREATININE 0.6 mg/dL (0.55-1.3)
[2022-04-04 08:49] LABS: MAGNESIUM 1.4 mg/dL (1.8-2.4)
[2022-04-04 08:50] LABS: BILIRUBIN,TOTAL 0.5 mg/dL (0.2-1); CALCIUM 7.7 mg/dL (8.5-10.1); TOT PROT 5.3 g/dl (6.4-8.2)
[2022-04-04 08:53] LABS: PHOSPHOROUS 2.1 mg/dL (2.5-4.9)
[2022-04-04 08:54] LABS: INR 1.61 (0.83-1.09); PROTHROMBIN TIME (PATIENT) 18.6 SEC (9.7-13.0)
[2022-04-04] MEDS ORDERED: METOPROLOL TARTRATE 25 MG TABLET (FP) PO ONE (09:00)
[2022-04-04] MEDS ORDERED: MAGNESIUM 2GM/50ML STERILE WATER IVPB IVPB ONE ×2 (09:45→10:33)
[2022-04-04] MEDS ORDERED: AMIODARONE HCL 200 MG TABLET PO SCH (10:00)
[2022-04-04] MEDS ORDERED: POTASSIUM PHOSPHATE 15 MM in SODIUM CHLORIDE 250 ML IVPB ONE (10:30)
[2022-04-04] MEDS ORDERED: FUROSEMIDE 40 MG/4 ML INJECTABLE VIAL IVPUSH ONE (10:39)
[2022-04-04] MEDS: NAPH,MB-DB/K PH,MBDB POWDER PACKET PO SCH (10:58)
[2022-04-04] MEDS: SERTRALINE HCL 50 MG TABLET (FP) PO SCH (10:59)
[2022-04-04] MEDS: PANTOPRAZOLE SODIUM 40 MG VIAL IVPUSH SCH (11:55)
[2022-04-04] MEDS: THIAMINE HCL 200 MG/2 ML VIAL IVPB SCH (11:56)
[2022-04-04] MEDS: MIDODRINE HCL 5 MG TABLET PO SCH (12:26)
[2022-04-04] MEDS: DOCUSATE SODIUM 100 MG CAPSULE (FP) PO SCH (12:26)
[2022-04-04] MEDS: PANTOPRAZOLE 40 MG TABLET PO SCH (12:26)
[2022-04-04] MEDS: LACTOBACILLUS ACIDOPHILUS 1 TABLET PO SCH (12:26)
[2022-04-04] MEDS ORDERED: SODIUM CHLORIDE IVPB ONE (13:44)
[2022-04-04] MEDS ORDERED: POTASSIUM PHOSPHATE IVPB ONE (13:44)
[2022-04-04] MEDS ORDERED: PHYTONADIONE 10 MG/1 ML AMP IVPB ONE (14:00)
[2022-04-04] MEDS ORDERED: methylPREDNISolone NA SUCC 40 MG/1 ML VIAL IVPUSH ONE (14:51)
[2022-04-04] MEDS: MULTIVIT IV SCH (15:26)
[2022-04-04] MEDS: D10W IV SCH (15:26)
[2022-04-04] MEDS: AMINO ACID IV SCH (15:26)
[2022-04-04] MEDS: HEPARIN INFUSION - 25,000 UNITS/500 ML INFUS.BAG IVPB SCH (16:09)
[2022-04-04] MEDS ORDERED: HALOPERIDOL LACTATE 5 MG/ML IM ONE (16:52)
[2022-04-04] MEDS ORDERED: LORazepam 2 MG/ML SDV VIAL IVPUSH ONE (18:32)
[2022-04-04] MEDS: IPRATROPIUM BR 0.02% 0.5 MG/2.5 ML VIAL.NEB. NEB SCH (20:05)
[2022-04-04] MEDS: SODIUM CHLORIDE 1,000 ML IV SCH (21:35)
[2022-04-04] MEDS: BACITRACIN 15 GM TUBE TOPICAL OINTMENT TP SCH (21:35)
[2022-04-04] MEDS: HEPARIN NA (PORCINE) 5,000 UNITS/ML 1ML VIAL IVPUSH PRN (22:38)
[2022-04-05 06:05] LABS: HEMATOCRIT 29.7 % (35.4-49); HEMOGLOBIN 10.1 GM/dL (11.7-16.9); MCH 30.9 pg (25.7-33.7); MCHC 33.9 g/dl (32.0-35.9); MEAN CELL VOLUME 91.1 fl (80-96); MEAN PLT VOLUME 8.6 fl (7.5-11.1); PLATELET COUNT 254 10^3/uL (134-434); RBC 3.26 M/mm3 (4.00-5.60); RDW 15.9 % (11.9-15.9); WHITE BLOOD COUNT 11.1 K/mm3 (4.0-10.0)
[2022-04-05 06:13] LABS: INR 1.25 (0.83-1.09); PROTHROMBIN TIME (PATIENT) 14.4 SEC (9.7-13.0)
[2022-04-05 06:15] LABS: ACTIVATED PTT 46.1 SECONDS (25.2-36.5)
[2022-04-05 06:28] LABS: ALBUMIN 2.4 g/dl (3.4-5.0); BLOOD UREA NITROGEN 21.9 mg/dL (7-18); MAGNESIUM 1.6 mg/dL (1.8-2.4)
[2022-04-05 06:31] LABS: CREATININE 0.8 mg/dL (0.55-1.3); PHOSPHOROUS 1.9 mg/dL (2.5-4.9)
[2022-04-05 06:32] LABS: BILIRUBIN,TOTAL 0.5 mg/dL (0.2-1)
[2022-04-05 06:33] LABS: TOT PROT 5.6 g/dl (6.4-8.2)
[2022-04-05 07:02] LABS: LACTIC ACID 2.9 mmol/L (0.4-2.0)
[2022-04-05] MEDS: SODIUM CHLORIDE 1,000 ML IV SCH ×2 (07:15→16:53)
[2022-04-05] MEDS: IPRATROPIUM BR 0.02% 0.5 MG/2.5 ML VIAL.NEB. NEB SCH ×4 (08:16→20:49)
[2022-04-05] MEDS: KCL 10 MEQ IVPB 10 MEQ/100 ML INFUS.BAG IVPB SCH ×3 (08:30→11:54)
[2022-04-05] MEDS ORDERED: MAGNESIUM 2GM/50ML STERILE WATER IVPB IVPB ONE ×2 (08:30→11:45)
[2022-04-05] MEDS ORDERED: FUROSEMIDE 40 MG/4 ML INJECTABLE VIAL IVPUSH ONE (08:50)
[2022-04-05 09:18] LABS: ANISOCYTOSIS 2+; MACROCYTOSIS 0
[2022-04-05] MEDS: THIAMINE HCL 200 MG/2 ML VIAL IVPB SCH (09:34)
[2022-04-05] MEDS: PANTOPRAZOLE SODIUM 40 MG VIAL IVPUSH SCH (09:34)
[2022-04-05] MEDS: BACITRACIN 15 GM TUBE TOPICAL OINTMENT TP SCH (09:37)
[2022-04-05] MEDS ORDERED: LORazepam 2 MG/ML SDV VIAL IVPUSH PRN (10:29)
[2022-04-05] MEDS ORDERED: POTASSIUM PHOSPHATE 15 MM in SODIUM CHLORIDE 250 ML IVPB ONE (10:30)
[2022-04-05] MEDS: ERTAPENEM SODIUM 1 GM in SODIUM CHLORIDE 50 ML IVPB SCH (11:13)
[2022-04-05] MEDS: HEPARIN INFUSION - 25,000 UNITS/500 ML INFUS.BAG IVPB SCH (14:14)
[2022-04-05] MEDS: D10W IV SCH (16:00)
[2022-04-05] MEDS: AMINO ACID IV SCH (16:00)
[2022-04-05] MEDS: MULTIVIT IV SCH (16:00)
[2022-04-05] MEDS: HALOPERIDOL LACTATE 5 MG/ML IM PRN (22:34)
[2022-04-06] MEDS: SODIUM CHLORIDE 1,000 ML IV SCH ×2 (02:44→10:05)
[2022-04-06 04:51] LABS: INR 1.19 (0.83-1.09); PROTHROMBIN TIME (PATIENT) 13.7 SEC (9.7-13.0)
[2022-04-06 04:53] LABS: ACTIVATED PTT 36.1 SECONDS (25.2-36.5)
[2022-04-06] MEDS: HEPARIN NA (PORCINE) 5,000 UNITS/ML 1ML VIAL IVPUSH PRN ×2 (06:25→21:41)
[2022-04-06 08:08] LABS: BASO % 0.1 % (0-2.0); EOS % 0.5 % (0-4.5); HEMATOCRIT 29.4 % (35.4-49); HEMOGLOBIN 9.8 GM/dL (11.7-16.9); LYMPH % 2.9 % (8-40); MCH 30.5 pg (25.7-33.7); MCHC 33.2 g/dl (32.0-35.9); MEAN CELL VOLUME 91.7 fl (80-96); MEAN PLT VOLUME 9.3 fl (7.5-11.1); NEUT % 86.5 % (42.8-82.8); PLATELET COUNT 261 10^3/uL (134-434); RBC 3.21 M/mm3 (4.00-5.60); RDW 16.4 % (11.9-15.9); WHITE BLOOD COUNT 13.6 K/mm3 (4.0-10.0)
[2022-04-06 08:18] LABS: ALBUMIN 2.5 g/dl (3.4-5.0); MAGNESIUM 2.1 mg/dL (1.8-2.4)
[2022-04-06 08:21] LABS: CREATININE 0.7 mg/dL (0.55-1.3); PHOSPHOROUS 1.8 mg/dL (2.5-4.9)
[2022-04-06 08:22] LABS: TOT PROT 5.7 g/dl (6.4-8.2)
[2022-04-06 08:23] LABS: BILIRUBIN,TOTAL 0.4 mg/dL (0.2-1)
[2022-04-06 08:26] LABS: BLOOD UREA NITROGEN 32.2 mg/dL (7-18)
[2022-04-06] MEDS: IPRATROPIUM BR 0.02% 0.5 MG/2.5 ML VIAL.NEB. NEB SCH ×4 (08:40→19:56)
[2022-04-06] MEDS: BACITRACIN 15 GM TUBE TOPICAL OINTMENT TP SCH (10:05)
[2022-04-06] MEDS: PANTOPRAZOLE SODIUM 40 MG VIAL IVPUSH SCH (10:06)
[2022-04-06] MEDS: THIAMINE HCL 200 MG/2 ML VIAL IVPB SCH (10:06)
[2022-04-06] MEDS: ERTAPENEM SODIUM 1 GM in SODIUM CHLORIDE 50 ML IVPB SCH (10:06)
[2022-04-06] MEDS ORDERED: SODIUM CHLORIDE 1,000 ML IV SCH (10:37)
[2022-04-06] MEDS ORDERED: POTASSIUM PHOSPHATE 30 MM in DEXTROSE 5%-WATER - 500 ML IVPB ONE (11:00)
[2022-04-06] MEDS ORDERED: FUROSEMIDE 40 MG/4 ML INJECTABLE VIAL IVPUSH ONE (11:02)
[2022-04-06] MEDS: MULTIVIT IV SCH (20:58)
[2022-04-06] MEDS: POTASSIUM CHLORIDE IV SCH (20:58)
[2022-04-06] MEDS: SODIUM PHOSPHATE IV SCH (20:58)
[2022-04-06] MEDS: [UNRECOGNIZED DRUG - OTHER] IV SCH (20:58)
[2022-04-06] MEDS: FAT EMULSION/OLIVE/SOY/PHOSPHO 250 ML IV SCH (20:59)
[2022-04-06] MEDS: HEPARIN INFUSION - 25,000 UNITS/500 ML INFUS.BAG IVPB SCH (21:14)
[2022-04-06] MEDS: HALOPERIDOL LACTATE 5 MG/ML IM PRN (21:43)
[2022-04-07] MEDS: IPRATROPIUM BR 0.02% 0.5 MG/2.5 ML VIAL.NEB. NEB SCH ×4 (07:40→20:05)
[2022-04-07 08:18] LABS: BASO % 0.3 % (0-2.0); EOS % 0.7 % (0-4.5); HEMATOCRIT 28.6 % (35.4-49); HEMOGLOBIN 9.7 GM/dL (11.7-16.9); LYMPH % 3.5 % (8-40); MCH 30.8 pg (25.7-33.7); MCHC 33.8 g/dl (32.0-35.9); MEAN CELL VOLUME 91.3 fl (80-96); MEAN PLT VOLUME 9.9 fl (7.5-11.1); MONO % 10.8 % (3.8-10.2); NEUT % 84.7 % (42.8-82.8); PLATELET COUNT 255 10^3/uL (134-434); RBC 3.13 M/mm3 (4.00-5.60); WHITE BLOOD COUNT 15.1 K/mm3 (4.0-10.0)
[2022-04-07 08:24] LABS: CALCIUM 8.2 mg/dL (8.5-10.1)
[2022-04-07 08:25] LABS: ALBUMIN 2.5 g/dl (3.4-5.0); BLOOD UREA NITROGEN 34.8 mg/dL (7-18); MAGNESIUM 1.8 mg/dL (1.8-2.4)
[2022-04-07 08:28] LABS: CREATININE 0.7 mg/dL (0.55-1.3); PHOSPHOROUS 2.7 mg/dL (2.5-4.9)
[2022-04-07 08:29] LABS: BILIRUBIN,TOTAL 0.4 mg/dL (0.2-1); TOT PROT 5.9 g/dl (6.4-8.2)
[2022-04-07] MEDS ORDERED: KCL 10 MEQ IVPB 10 MEQ/100 ML INFUS.BAG IVPB SCH (10:15)
[2022-04-07] MEDS: PANTOPRAZOLE SODIUM 40 MG VIAL IVPUSH SCH (10:25)
[2022-04-07] MEDS: BACITRACIN 15 GM TUBE TOPICAL OINTMENT TP SCH (10:26)
[2022-04-07] MEDS: THIAMINE HCL 200 MG/2 ML VIAL IVPB SCH (10:29)
[2022-04-07] MEDS ORDERED: MAGNESIUM SULF 50% (8.12 MEQ/2 ML-1 GM VIAL) IVPB ONE (10:30)
[2022-04-07] MEDS ORDERED: FUROSEMIDE 40 MG/4 ML INJECTABLE VIAL IVPUSH ONE ×2 (12:05→20:00)
[2022-04-07] MEDS ORDERED: LORazepam 2 MG/ML SDV VIAL IVPUSH ONE (12:24)
[2022-04-07] MEDS: HEPARIN INFUSION - 25,000 UNITS/500 ML INFUS.BAG IVPB SCH ×2 (14:47→15:47)
[2022-04-07 15:09] LABS: THYROID STIM IMMUNOGLOBULIN <0.10 IU/L (0.00-0.55)
[2022-04-07] MEDS: [UNRECOGNIZED DRUG - OTHER] IV SCH (19:02)
[2022-04-07] MEDS: MULTIVIT IV SCH (19:02)
[2022-04-07] MEDS: SODIUM PHOSPHATE IV SCH (19:02)
[2022-04-07] MEDS: POTASSIUM CHLORIDE IV SCH (19:02)
[2022-04-07] MEDS: KCL 10 MEQ IVPB 10 MEQ/100 ML INFUS.BAG IVPB SCH ×2 (21:00→21:37)
[2022-04-07] MEDS: FAT EMULSION/OLIVE/SOY/PHOSPHO 250 ML IV SCH (21:38)
[2022-04-08] MEDS: IPRATROPIUM BR 0.02% 0.5 MG/2.5 ML VIAL.NEB. NEB SCH ×4 (07:45→21:01)
[2022-04-08 08:47] LABS: BASO % 0.5 % (0-2.0); EOS % 1.6 % (0-4.5); HEMATOCRIT 30.7 % (35.4-49); HEMOGLOBIN 10.2 GM/dL (11.7-16.9); MCH 30.4 pg (25.7-33.7); MCHC 33.2 g/dl (32.0-35.9); MEAN CELL VOLUME 91.4 fl (80-96); MEAN PLT VOLUME 10.1 fl (7.5-11.1); MONO % 10.4 % (3.8-10.2); NEUT % 83.5 % (42.8-82.8); PLATELET COUNT 245 10^3/uL (134-434); RBC 3.36 M/mm3 (4.00-5.60); RDW 16.2 % (11.9-15.9); WHITE BLOOD COUNT 13.9 K/mm3 (4.0-10.0)
[2022-04-08 09:36] LABS: CALCIUM 8.4 mg/dL (8.5-10.1)
[2022-04-08 09:37] LABS: ALBUMIN 2.4 g/dl (3.4-5.0); BLOOD UREA NITROGEN 31.5 mg/dL (7-18)
[2022-04-08 09:40] LABS: CREATININE 0.7 mg/dL (0.55-1.3); PHOSPHOROUS 3.2 mg/dL (2.5-4.9)
[2022-04-08 09:41] LABS: BILIRUBIN,TOTAL 0.8 mg/dL (0.2-1)
[2022-04-08] MEDS: PANTOPRAZOLE SODIUM 40 MG VIAL IVPUSH SCH (09:45)
[2022-04-08] MEDS: THIAMINE HCL 200 MG/2 ML VIAL IVPB SCH (09:46)
[2022-04-08] MEDS: BACITRACIN 15 GM TUBE TOPICAL OINTMENT TP SCH (09:47)
[2022-04-08 09:56] LABS: CHOLESTEROL 126 mg/dL (50-200); TRIGLYCERIDES 106 mg/dL (0-150)
[2022-04-08 09:57] LABS: LDL CHOLESTEROL (ONLY SJRH) 39 mg/dL (5-100)
[2022-04-08 10:01] LABS: HDL CHOLESTEROL 56 mg/dL (40-60)
[2022-04-08] MEDS: KCL 10 MEQ IVPB 10 MEQ/100 ML INFUS.BAG IVPB SCH ×3 (13:56→18:49)
[2022-04-08] MEDS: SODIUM PHOSPHATE IV SCH (17:42)
[2022-04-08] MEDS: MULTIVIT IV SCH (17:42)
[2022-04-08] MEDS: [UNRECOGNIZED DRUG - OTHER] IV SCH (17:42)
[2022-04-08] MEDS: POTASSIUM CHLORIDE IV SCH (17:42)
[2022-04-08] MEDS: HEPARIN NA (PORCINE) 5,000 UNITS/ML 1ML VIAL IVPUSH PRN (20:36)
[2022-04-08] MEDS: HEPARIN INFUSION - 25,000 UNITS/500 ML INFUS.BAG IVPB SCH (20:37)
[2022-04-08] MEDS: FAT EMULSION/OLIVE/SOY/PHOSPHO 250 ML IV SCH (21:51)
[2022-04-09] MEDS: IPRATROPIUM BR 0.02% 0.5 MG/2.5 ML VIAL.NEB. NEB SCH ×3 (07:40→16:15)
[2022-04-09 07:58] LABS: BASO % 0.3 % (0-2.0); EOS % 2.2 % (0-4.5); HEMATOCRIT 28.2 % (35.4-49); HEMOGLOBIN 9.5 GM/dL (11.7-16.9); MCH 30.5 pg (25.7-33.7); MCHC 33.6 g/dl (32.0-35.9); MEAN CELL VOLUME 90.9 fl (80-96); MEAN PLT VOLUME 9.8 fl (7.5-11.1); MONO % 11.7 % (3.8-10.2); NEUT % 80.8 % (42.8-82.8); PLATELET COUNT 225 10^3/uL (134-434); RDW 15.9 % (11.9-15.9); WHITE BLOOD COUNT 11.3 K/mm3 (4.0-10.0)
[2022-04-09 08:27] LABS: BLOOD UREA NITROGEN 33.6 mg/dL (7-18); CALCIUM 8.2 mg/dL (8.5-10.1); MAGNESIUM 1.8 mg/dL (1.8-2.4)
[2022-04-09 08:28] LABS: ALBUMIN 2.2 g/dl (3.4-5.0)
[2022-04-09] MEDS: HEPARIN INFUSION - 25,000 UNITS/500 ML INFUS.BAG IVPB SCH ×2 (08:31→17:32)
[2022-04-09 08:32] LABS: BILIRUBIN,TOTAL 0.5 mg/dL (0.2-1); CREATININE 0.6 mg/dL (0.55-1.3); TOT PROT 5.7 g/dl (6.4-8.2)
[2022-04-09] MEDS: HEPARIN NA (PORCINE) 5,000 UNITS/ML 1ML VIAL IVPUSH PRN (08:39)
[2022-04-09 09:31] LABS: BF WBC & OTHER NUCLEATED CELLS 454 /mm3
[2022-04-09 09:41] LABS: BODY FLUID MACROPHAGES 74 %; BODY FLUID MESOTHELIAL 3 %
[2022-04-09] MEDS: THIAMINE HCL 200 MG/2 ML VIAL IVPB SCH (10:20)
[2022-04-09] MEDS: PANTOPRAZOLE SODIUM 40 MG VIAL IVPUSH SCH (10:20)
[2022-04-09] MEDS: BACITRACIN 15 GM TUBE TOPICAL OINTMENT TP SCH (10:21)
[2022-04-09] MEDS: MULTIVIT IV SCH (16:23)
[2022-04-09] MEDS: [UNRECOGNIZED DRUG - OTHER] IV SCH (16:23)
[2022-04-09] MEDS: AMINO ACID IV SCH (16:23)
[2022-04-09] MEDS: POTASSIUM CHLORIDE IV SCH (16:23)
[2022-04-10] MEDS: FAT EMULSION/OLIVE/SOY/PHOSPHO 250 ML IV SCH ×2 (01:05→22:00)
[2022-04-10] MEDS: HEPARIN INFUSION - 25,000 UNITS/500 ML INFUS.BAG IVPB SCH ×2 (01:08→15:38)
[2022-04-10 08:27] LABS: HEMATOCRIT 28.8 % (35.4-49); HEMOGLOBIN 9.5 GM/dL (11.7-16.9); MCH 30.2 pg (25.7-33.7); MCHC 32.8 g/dl (32.0-35.9); MEAN PLT VOLUME 10.8 fl (7.5-11.1); PLATELET COUNT 231 10^3/uL (134-434); RBC 3.13 M/mm3 (4.00-5.60); WHITE BLOOD COUNT 21.8 K/mm3 (4.0-10.0)
[2022-04-10 08:56] LABS: CALCIUM 8.3 mg/dL (8.5-10.1)
[2022-04-10 08:57] LABS: ALBUMIN 2.2 g/dl (3.4-5.0); MAGNESIUM 1.7 mg/dL (1.8-2.4)
[2022-04-10 09:00] LABS: CREATININE 0.7 mg/dL (0.55-1.3); PHOSPHOROUS 2.6 mg/dL (2.5-4.9)
[2022-04-10 09:01] LABS: BILIRUBIN,TOTAL 0.6 mg/dL (0.2-1)
[2022-04-10] MEDS: THIAMINE HCL 200 MG/2 ML VIAL IVPB SCH (09:46)
[2022-04-10] MEDS: PANTOPRAZOLE SODIUM 40 MG VIAL IVPUSH SCH (09:46)
[2022-04-10] MEDS: BACITRACIN 15 GM TUBE TOPICAL OINTMENT TP SCH (10:28)
[2022-04-10 10:55] LABS: ANISOCYTOSIS 2+; MACROCYTOSIS 2+
[2022-04-10] MEDS ORDERED: MAGNESIUM 1GM/D5W 100ML - 100 ML IVPB IVPB ONE (14:08)
[2022-04-10] MEDS: [UNRECOGNIZED DRUG - OTHER] IV SCH (15:41)
[2022-04-10] MEDS: MULTIVIT IV SCH (15:41)
[2022-04-10] MEDS: AMINO ACID IV SCH (15:41)
[2022-04-10] MEDS: POTASSIUM CHLORIDE IV SCH (15:41)
[2022-04-10] MEDS ORDERED: MAGNESIUM SULF 50% (8.12 MEQ/2 ML-1 GM VIAL) IVPB ONE (15:47)
[2022-04-10] MEDS ORDERED: MAGNESIUM 1GM/D5W - 1 GM/100 ML IVPB IVPB ONE (16:15)
[2022-04-10 17:06] LABS: BODY FLUID ALBUMIN 1.3 g/dL (Not Estab.)
[2022-04-11] MEDS: HEPARIN INFUSION - 25,000 UNITS/500 ML INFUS.BAG IVPB SCH ×2 (07:44→23:18)
[2022-04-11 08:42] LABS: BASO % 0.3 % (0-2.0); EOS % 1.1 % (0-4.5); HEMATOCRIT 28.3 % (35.4-49); HEMOGLOBIN 9.3 GM/dL (11.7-16.9); LYMPH % 4.3 % (8-40); MCHC 32.9 g/dl (32.0-35.9); MEAN CELL VOLUME 91.3 fl (80-96); MEAN PLT VOLUME 10.4 fl (7.5-11.1); MONO % 15.3 % (3.8-10.2); PLATELET COUNT 226 10^3/uL (134-434); RDW 15.7 % (11.9-15.9); WHITE BLOOD COUNT 12.6 K/mm3 (4.0-10.0)
[2022-04-11 08:44] LABS: BLOOD UREA NITROGEN 31.4 mg/dL (7-18)
[2022-04-11 08:45] LABS: ALBUMIN 2.1 g/dl (3.4-5.0); CALCIUM 8.2 mg/dL (8.5-10.1); MAGNESIUM 2.1 mg/dL (1.8-2.4)
[2022-04-11 08:47] LABS: CREATININE 0.7 mg/dL (0.55-1.3); PHOSPHOROUS 2.4 mg/dL (2.5-4.9)
[2022-04-11 08:49] LABS: BILIRUBIN,TOTAL 0.8 mg/dL (0.2-1); TOT PROT 6.1 g/dl (6.4-8.2)
[2022-04-11] MEDS: PANTOPRAZOLE SODIUM 40 MG VIAL IVPUSH SCH (09:24)
[2022-04-11] MEDS: THIAMINE HCL 200 MG/2 ML VIAL IVPB SCH (09:24)
[2022-04-11] MEDS: BACITRACIN 15 GM TUBE TOPICAL OINTMENT TP SCH (09:24)
[2022-04-11] MEDS: POTASSIUM CHLORIDE IV SCH (15:40)
[2022-04-11] MEDS: AMINO ACID IV SCH (15:40)
[2022-04-11] MEDS: [UNRECOGNIZED DRUG - OTHER] IV SCH (15:40)
[2022-04-11] MEDS: MULTIVIT IV SCH (15:40)
[2022-04-11] MEDS: FAT EMULSION/OLIVE/SOY/PHOSPHO 250 ML IV SCH (23:19)
[2022-04-12] MEDS: HEPARIN NA (PORCINE) 5,000 UNITS/ML 1ML VIAL IVPUSH PRN (08:40)
[2022-04-12 08:50] LABS: HEMATOCRIT 30.1 % (35.4-49); HEMOGLOBIN 9.9 GM/dL (11.7-16.9); MCH 30.1 pg (25.7-33.7); MCHC 32.9 g/dl (32.0-35.9); MEAN CELL VOLUME 91.3 fl (80-96); RDW 16.3 % (11.9-15.9)
[2022-04-12 08:54] LABS: MEAN PLT VOLUME 10.9 fl (7.5-11.1); PLATELET COUNT 267 10^3/uL (134-434)
[2022-04-12 08:58] LABS: ALBUMIN 2.1 g/dl (3.4-5.0); BILIRUBIN,TOTAL 0.7 mg/dL (0.2-1); CALCIUM 8.6 mg/dL (8.5-10.1); CREATININE 0.6 mg/dL (0.55-1.3); TOT PROT 6.2 g/dl (6.4-8.2)
[2022-04-12] MEDS: THIAMINE HCL 200 MG/2 ML VIAL IVPB SCH (09:42)
[2022-04-12] MEDS: PANTOPRAZOLE SODIUM 40 MG VIAL IVPUSH SCH (09:42)
[2022-04-12] MEDS: BACITRACIN 15 GM TUBE TOPICAL OINTMENT TP SCH (09:42)
[2022-04-12 11:00] LABS: ANISOCYTOSIS 0; HELMET CELLS 0; HOWELL-JOLLY BODIES 0; MACROCYTOSIS 0; OVALOCYTE 0; ROULEAU 0; SICKELED CELLS 0; TARGET CELLS 0; TEAR DROP CELLS 0; TOXIC GRANULATION 0
[2022-04-12] MEDS: HEPARIN INFUSION - 25,000 UNITS/500 ML INFUS.BAG IVPB SCH (14:31)
[2022-04-12] MEDS: AMINO ACID IV SCH (15:40)
[2022-04-12] MEDS: MULTIVIT IV SCH (15:40)
[2022-04-12] MEDS: [UNRECOGNIZED DRUG - OTHER] IV SCH (15:40)
[2022-04-12] MEDS: POTASSIUM CHLORIDE IV SCH (15:40)
[2022-04-12] MEDS: FAT EMULSION/OLIVE/SOY/PHOSPHO 250 ML IV SCH (21:45)
[2022-04-13] MEDS: HEPARIN INFUSION - 25,000 UNITS/500 ML INFUS.BAG IVPB SCH ×2 (06:31→15:24)
[2022-04-13] MEDS: BACITRACIN 15 GM TUBE TOPICAL OINTMENT TP SCH (10:08)
[2022-04-13] MEDS: PANTOPRAZOLE SODIUM 40 MG VIAL IVPUSH SCH (10:09)
[2022-04-13] MEDS: THIAMINE HCL 200 MG/2 ML VIAL IVPB SCH (10:09)
[2022-04-13] MEDS: AMINO ACID IV SCH (18:53)
[2022-04-13] MEDS: POTASSIUM CHLORIDE IV SCH (18:53)
[2022-04-13] MEDS: [UNRECOGNIZED DRUG - OTHER] IV SCH (18:53)
[2022-04-13] MEDS: MULTIVIT IV SCH (18:53)
[2022-04-13] MEDS: FAT EMULSION/OLIVE/SOY/PHOSPHO 250 ML IV SCH (22:29)
[2022-04-13] MEDS: HEPARIN NA (PORCINE) 5,000 UNITS/ML 1ML VIAL IVPUSH PRN (23:02)
[2022-04-13] MEDS ORDERED: ACETAMINOPHEN 1000 MG/100 ML BAG IVPB ONE (23:53)
[2022-04-14 08:02] LABS: HEMOGLOBIN 11.1 GM/dL (11.7-16.9); MCH 29.8 pg (25.7-33.7); MCHC 32.8 g/dl (32.0-35.9); MEAN CELL VOLUME 90.9 fl (80-96); MEAN PLT VOLUME 11.1 fl (7.5-11.1); PLATELET COUNT 300 10^3/uL (134-434); RBC 3.73 M/mm3 (4.00-5.60); RDW 15.6 % (11.9-15.9); WHITE BLOOD COUNT 16.6 K/mm3 (4.0-10.0)
[2022-04-14 08:25] LABS: MAGNESIUM 1.7 mg/dL (1.8-2.4)
[2022-04-14 08:29] LABS: CREATININE 1.2 mg/dL (0.55-1.3)
[2022-04-14 08:30] LABS: PHOSPHOROUS 3.3 mg/dL (2.5-4.9); TOT PROT 7.4 g/dl (6.4-8.2)
[2022-04-14 08:56] LABS: ALBUMIN 2.6 g/dl (3.4-5.0); BLOOD UREA NITROGEN 59.5 mg/dL (7-18)
[2022-04-14 09:05] LABS: ANISOCYTOSIS 1+; MACROCYTOSIS 0
[2022-04-14] MEDS: THIAMINE HCL 200 MG/2 ML VIAL IVPB SCH (09:42)
[2022-04-14] MEDS: PANTOPRAZOLE SODIUM 40 MG VIAL IVPUSH SCH (09:42)
[2022-04-14] MEDS: BACITRACIN 15 GM TUBE TOPICAL OINTMENT TP SCH (09:42)
[2022-04-14] MEDS ORDERED: SODIUM CHLORIDE 1,000 ML IV STA (12:35)
[2022-04-14] MEDS ORDERED: MAGNESIUM SULFATE IN WATER 2 GM/50 ML IVPB IVPB ONE (12:45)
[2022-04-14] MEDS ORDERED: SODIUM CHLORIDE 500 ML IV STA (14:03)
[2022-04-14] MEDS: HEPARIN INFUSION - 25,000 UNITS/500 ML INFUS.BAG IVPB SCH (17:28)
[2022-04-14] MEDS: [UNRECOGNIZED DRUG - OTHER] IV SCH (17:34)
[2022-04-14] MEDS: MULTIVIT IV SCH (17:34)
[2022-04-14] MEDS: AMINO ACID IV SCH (17:34)
[2022-04-14] MEDS: POTASSIUM CHLORIDE IV SCH (17:34)
[2022-04-14] MEDS: FAT EMULSION/OLIVE/SOY/PHOSPHO 250 ML IV SCH (22:02)
[2022-04-15 01:23] VITALS: PULSE 65; RESP 20
[2022-04-15 04:58] VITALS: BP 106/60; TEMP 99.2
== END 2022-04-15 05:00 | disposition short-term general hospital (02) | DRG 371 ==
LOC: JER 14:41 → JERBED 20:43 → J6W 03-08 03:47 → J4S 03-14 19:06 → JICU 03-26 18:17 → J4W 03-27 18:32
PROVIDERS: ADMIT Internal Medicine; ATTEND Internal Medicine
PROC: 0W9J30Z Drainage of Pelvic Cavity with Drainage Device, Percutaneous Approach (ICD-10-PCS; 2022-03-07)
PROC: 02HV33Z Insertion of Infusion Device into Superior Vena Cava, Percutaneous Approach (ICD-10-PCS; 2022-03-26)
PROC: B548ZZA Ultrasonography of Superior Vena Cava, Guidance (ICD-10-PCS; 2022-03-26)
PROC: 02HV33Z Insertion of Infusion Device into Superior Vena Cava, Percutaneous Approach (ICD-10-PCS; 2022-04-03)
PROC: B548ZZA Ultrasonography of Superior Vena Cava, Guidance (ICD-10-PCS; 2022-04-03)
PROC: 0W9B3ZZ Drainage of Left Pleural Cavity, Percutaneous Approach (ICD-10-PCS; 2022-04-08)
PROC: 0W993ZZ Drainage of Right Pleural Cavity, Percutaneous Approach (ICD-10-PCS; principal; 2022-04-09)
DX: K35.33 Acute appendicitis with perforation, localized peritonitis, and gangrene, with abscess (principal); A41.89 Other specified sepsis; G93.41 Metabolic encephalopathy; J18.9 Pneumonia, unspecified organism; J96.01 Acute respiratory failure with hypoxia; I24.8 Other forms of acute ischemic heart disease; N17.9 Acute kidney failure, unspecified; J90 Pleural effusion, not elsewhere classified; D68.9 Coagulation defect, unspecified; K56.7 Ileus, unspecified; A04.71 Enterocolitis due to Clostridium difficile, recurrent; R64 Cachexia; Z68.1 Body mass index [BMI] 19.9 or less, adult; E46 Unspecified protein-calorie malnutrition; E87.1 Hypo-osmolality and hyponatremia; F05 Delirium due to known physiological condition; K56.609 Unspecified intestinal obstruction, unspecified as to partial versus complete obstruction; J98.11 Atelectasis; E78.5 Hyperlipidemia, unspecified; K59.00 Constipation, unspecified; D72.829 Elevated white blood cell count, unspecified; R19.7 Diarrhea, unspecified; I48.91 Unspecified atrial fibrillation; R19.09 Other intra-abdominal and pelvic swelling, mass and lump; E87.6 Hypokalemia; K21.9 Gastro-esophageal reflux disease without esophagitis; F32.A Depression, unspecified; N20.0 Calculus of kidney; E87.5 Hyperkalemia; R80.9 Proteinuria, unspecified; E88.09 Other disorders of plasma-protein metabolism, not elsewhere classified; E05.90 Thyrotoxicosis, unspecified without thyrotoxic crisis or storm; D75.839 Thrombocytosis, unspecified; I95.9 Hypotension, unspecified; E86.0 Dehydration; I80.8 Phlebitis and thrombophlebitis of other sites; Z85.01 Personal history of malignant neoplasm of esophagus; Z85.038 Personal history of other malignant neoplasm of large intestine; Y83.8 Other surgical procedures as the cause of abnormal reaction of the patient, or of later complication, without mention of misadventure at the time of the procedure
CPT/HCPCS: 0241U-QW; 32555; 36415; 36569; 49406; 49424; 70450-TC; 71045-TC-FY; 71046-TC-FY; 71250-TC; 71260-TC; 74018-TC-FY; 74019-TC-FY; 74176-TC; 74177-TC; 76775-TC; 76942; 77001-TC-FY; 80048; 80053; 80061; 80162; 81003; 82042; 82150; 82465; 82533; 82550; 82607; 82746; 82945; 82962; 83520; 83605; 83615; 83690; 83735; 83880; 84100; 84157; 84439; 84443; 84445; 84478; 84479; 84480; 84481; 84484; 85025; 85610; 85730; 86140; 86850; 86900; 86901; 86922; 87040; 87070; 87075; 87076; 87077; 87086; 87102; 87116; 87186; 87205; 87206; 87210; 87324; 87449; 88108; 88305-TC; 93005; 93010; 93306-TC; 94010; 94640; 97116-GP; 99285-25; C1751; C9803-CS; J0282; J1644; Q9967; U0003; U0005

== ENCOUNTER 2022-05-26 11:48 | Inpatient (IN) | payer OTHER, MEDICARE ==
[2022-05-26] MEDS ORDERED: morphine CARPU-JECT 2 MG/1 ML DISP.SYRIN IVPUSH ONE (13:35)
[2022-05-26 13:42] LABS: BASO % 0.4 % (0-2.0); EOS % 0.7 % (0-4.5); HEMATOCRIT 31.6 % (35.4-49); HEMOGLOBIN 10.2 GM/dL (11.7-16.9); LYMPH % 8.5 % (8-40); MCH 28.5 pg (25.7-33.7); MCHC 32.1 g/dl (32.0-35.9); MEAN CELL VOLUME 88.7 fl (80-96); MEAN PLT VOLUME 7.8 fl (7.5-11.1); MONO % 11.3 % (3.8-10.2); NEUT % 79.1 % (42.8-82.8); PLATELET COUNT 374 10^3/uL (134-434); RBC 3.56 M/mm3 (4.00-5.60); RDW 16.7 % (11.9-15.9); WHITE BLOOD COUNT 15.2 K/mm3 (4.0-10.0)
[2022-05-26 13:51] LABS: INR 1.16 (0.83-1.09); PROTHROMBIN TIME (PATIENT) 13.4 SEC (9.7-13.0)
[2022-05-26 13:54] LABS: ACTIVATED PTT 27.4 SECONDS (25.2-36.5)
[2022-05-26 14:09] LABS: CALCIUM 9.8 mg/dL (8.5-10.1)
[2022-05-26 14:13] LABS: CREATININE 1.1 mg/dL (0.55-1.3)
[2022-05-26 14:14] LABS: BILIRUBIN,TOTAL 0.7 mg/dL (0.2-1); TOT PROT 7.7 g/dl (6.4-8.2)
[2022-05-26] MEDS ORDERED: SODIUM CHLORIDE 0.9% 500 ML INFUS.BAG IV ONE (14:36)
[2022-05-26] MEDS ORDERED: SODIUM ZIRCONIUM CYCLOSILICATE (LOKELMA) 5 GM PACKET ONE (15:52)
[2022-05-26] MEDS: SODIUM ZIRCONIUM CYCLOSILICATE (LOKELMA) 5 GM PACKET PO SCH (16:52)
[2022-05-26] MEDS ORDERED: ACETAMINOPHEN 325 MG TABLET (FP) PO ONE (17:40)
[2022-05-26] MEDS ORDERED: ACETAMINOPHEN 325 MG TABLET (FP) ONE (17:59)
[2022-05-26 18:58] LABS: EPI CELLS 5 /uL (0-25.1); HYALINE CASTS 0 /uL (0-3.1); URINE APPEARANCE CLOUDY; URINE BACTERIA >9,000 /uL (0-1359); URINE BILIRUBIN NEGATIVE (NEGATIVE); URINE COLOR YELLOW; URINE GLUCOSE (UA) NEGATIVE (NEGATIVE); URINE KETONE NEGATIVE (NEGATIVE); URINE LEUK ESTERASE 2+ (NEGATIVE); URINE NITRITE POSITIVE (NEGATIVE); URINE PROTEIN 1+ (NEGATIVE); URINE RBC 21 /uL (0-23.9); URINE UROBILINOGEN 0.2 mg/dL (0.2-1.0); URINE WBC 1198 /uL (0-25.8)
[2022-05-26] MEDS ORDERED: CEFTRIAXONE 1,000 MG in DEXTROSE 5%-WATER - 50 ML IVPB ONE (20:10)
[2022-05-26] MEDS ORDERED: SODIUM CHLORIDE 1,000 ML IV SCH (20:15)
[2022-05-26] MEDS ORDERED: CEFTRIAXONE 1 GM/50 ML BAG ONE (21:00)
[2022-05-26] MEDS: CEFTRIAXONE 1 GM in DEXTROSE 5%-WATER - 50 ML IVPB SCH (21:07)
[2022-05-26] MEDS ORDERED: ACETAMINOPHEN 1000 MG/100 ML BAG IVPB PRN (23:59)
[2022-05-27] MEDS ORDERED: ALBUTEROL SULFATE 0.021% (0.63 MG/3 ML) VIAL.NEB NEB PRN (02:51)
[2022-05-27] MEDS ORDERED: ONDANSETRON *ODT* 4 MG TABLET SL PRN (02:58)
[2022-05-27 06:37] LABS: BASO % 0.7 % (0-2.0); EOS % 1.3 % (0-4.5); HEMATOCRIT 28.1 % (35.4-49); HEMOGLOBIN 9.1 GM/dL (11.7-16.9); LYMPH % 5.4 % (8-40); MCH 29.6 pg (25.7-33.7); MCHC 32.6 g/dl (32.0-35.9); MEAN CELL VOLUME 90.8 fl (80-96); MEAN PLT VOLUME 8.2 fl (7.5-11.1); MONO % 9.9 % (3.8-10.2); NEUT % 82.7 % (42.8-82.8); PLATELET COUNT 310 10^3/uL (134-434); RBC 3.09 M/mm3 (4.00-5.60); RDW 16.8 % (11.9-15.9); WHITE BLOOD COUNT 13.4 K/mm3 (4.0-10.0)
[2022-05-27 06:55] LABS: CALCIUM 8.8 mg/dL (8.5-10.1)
[2022-05-27 06:56] LABS: BLOOD UREA NITROGEN 25.3 mg/dL (7-18); MAGNESIUM 1.6 mg/dL (1.8-2.4)
[2022-05-27 06:59] LABS: CREATININE 0.8 mg/dL (0.55-1.3); PHOSPHOROUS 3.3 mg/dL (2.5-4.9)
[2022-05-27] MEDS ORDERED: DRONABINOL 5 MG CAPSULE PO ONE ×2 (08:13→18:52)
[2022-05-27] MEDS ORDERED: FERROUS SO4 325 MG TABLET (FP) ONE ×3 (08:13→18:53)
[2022-05-27] MEDS ORDERED: FAMOTIDINE 20 MG TABLET ONE (08:13)
[2022-05-27] MEDS ORDERED: METHOCARBAMOL 500 MG TABLET ONE ×2 (08:13→13:50)
[2022-05-27] MEDS ORDERED: ASCORBIC ACID 500 MG TABLET (FP) ONE (08:26)
[2022-05-27] MEDS ORDERED: CHOLECALCIFEROL (VIT D3) 1,000 UNIT (25 MCG) TABLET ONE ×2 (08:26→08:30)
[2022-05-27] MEDS ORDERED: ZINC SULFATE 220 MG CAPSULE (FP) ONE (08:26)
[2022-05-27] MEDS ORDERED: SODIUM ZIRCONIUM CYCLOSILICATE (LOKELMA) 5 GM PACKET ONE (08:26)
[2022-05-27] MEDS ORDERED: BACITRACIN 0.9 GM PACKET ONE (08:27)
[2022-05-27] MEDS ORDERED: CEFTRIAXONE 1 GM/50 ML BAG ONE (08:27)
[2022-05-27] MEDS: FERROUS SO4 325 MG TABLET (FP) PO SCH ×3 (08:41→18:53)
[2022-05-27] MEDS: FAMOTIDINE 20 MG TABLET PO SCH (08:41)
[2022-05-27] MEDS: METHOCARBAMOL 500 MG TABLET PO SCH ×3 (08:41→22:45)
[2022-05-27] MEDS: DRONABINOL 5 MG CAPSULE PO SCH ×2 (08:41→18:53)
[2022-05-27] MEDS: BACITRACIN ZINC 15 GM TUBE TOPICAL OINTMENT TP SCH ×2 (09:13→22:45)
[2022-05-27] MEDS: CEFTRIAXONE 1 GM in DEXTROSE 5%-WATER - 50 ML IVPB SCH (09:13)
[2022-05-27] MEDS: SODIUM ZIRCONIUM CYCLOSILICATE (LOKELMA) 5 GM PACKET PO SCH (09:13)
[2022-05-27] MEDS: ZINC SULFATE 220 MG CAPSULE (FP) PO SCH (09:13)
[2022-05-27] MEDS: ASCORBIC ACID 500 MG TABLET (FP) PO SCH (09:14)
[2022-05-27] MEDS: BETAMETHASONE VALER 0.1% OINT 15 GM TUBE TP SCH (09:54)
[2022-05-27] MEDS ORDERED: DIPHENOXYLATE 2.5/ATROPINE.025 1 COMBO TABLET ONE ×3 (09:56→18:53)
[2022-05-27] MEDS: DIPHENOXYLATE 2.5/ATROPINE.025 1 COMBO TABLET PO SCH ×3 (09:56→18:53)
[2022-05-27] MEDS ORDERED: CHOLECALCIFEROL (VIT D3) 1,000 UNIT (25 MCG) TABLET PO SCH (10:00)
[2022-05-27] MEDS: ENOXAPARIN NA (PORCINE) 40 MG/0.4 ML DISP.SYRIN SQ SCH (22:45)
[2022-05-27] MEDS ORDERED: ACETAMINOPHEN 325 MG TABLET (FP) PO PRN (23:59)
[2022-05-28] MEDS: DIPHENOXYLATE 2.5/ATROPINE.025 1 COMBO TABLET PO SCH ×4 (00:04→17:44)
[2022-05-28] MEDS ORDERED: SODIUM CHLORIDE 1,000 ML IV SCH (02:15)
[2022-05-28] MEDS: METHOCARBAMOL 500 MG TABLET PO SCH ×2 (06:38→15:45)
[2022-05-28] MEDS: FAMOTIDINE 20 MG TABLET PO SCH (06:38)
[2022-05-28] MEDS: DRONABINOL 5 MG CAPSULE PO SCH ×2 (07:08→16:53)
[2022-05-28] MEDS: FERROUS SO4 325 MG TABLET (FP) PO SCH ×3 (12:11→16:53)
[2022-05-28] MEDS: ASCORBIC ACID 500 MG TABLET (FP) PO SCH (12:11)
[2022-05-28] MEDS: CEFTRIAXONE 1 GM in DEXTROSE 5%-WATER - 50 ML IVPB SCH (12:12)
[2022-05-28] MEDS: ZINC SULFATE 220 MG CAPSULE (FP) PO SCH (12:12)
[2022-05-28 13:05] VITALS: BMI 16.2
[2022-05-28] MEDS: BETAMETHASONE VALER 0.1% OINT 15 GM TUBE TP SCH (15:42)
[2022-05-28] MEDS: BACITRACIN ZINC 15 GM TUBE TOPICAL OINTMENT TP SCH ×2 (15:42→21:52)
[2022-05-28] MEDS: SODIUM ZIRCONIUM CYCLOSILICATE (LOKELMA) 5 GM PACKET PO SCH (15:42)
[2022-05-28] MEDS: NYSTATIN 100000 UNIT/GM TOPICAL OINTMENT 15 GM TUBE TP SCH (21:52)
[2022-05-28] MEDS: ENOXAPARIN NA (PORCINE) 40 MG/0.4 ML DISP.SYRIN SQ SCH (21:53)
[2022-05-29] MEDS: DIPHENOXYLATE 2.5/ATROPINE.025 1 COMBO TABLET PO SCH ×4 (00:52→18:06)
[2022-05-29] MEDS: FAMOTIDINE 20 MG TABLET PO SCH (06:19)
[2022-05-29] MEDS: DRONABINOL 5 MG CAPSULE PO SCH ×2 (06:23→18:07)
[2022-05-29 08:11] LABS: BASO % 1.1 % (0-2.0); EOS % 1.8 % (0-4.5); HEMATOCRIT 28.6 % (35.4-49); HEMOGLOBIN 9.3 GM/dL (11.7-16.9); LYMPH % 8.6 % (8-40); MCH 29.1 pg (25.7-33.7); MCHC 32.6 g/dl (32.0-35.9); MEAN CELL VOLUME 89.2 fl (80-96); MEAN PLT VOLUME 8.4 fl (7.5-11.1); NEUT % 78.5 % (42.8-82.8); PLATELET COUNT 315 10^3/uL (134-434); RBC 3.21 M/mm3 (4.00-5.60); RDW 16.9 % (11.9-15.9); WHITE BLOOD COUNT 8.4 K/mm3 (4.0-10.0)
[2022-05-29 08:34] LABS: ALBUMIN 2.5 g/dl (3.4-5.0); BLOOD UREA NITROGEN 16.9 mg/dL (7-18)
[2022-05-29 08:37] LABS: CREATININE 0.7 mg/dL (0.55-1.3)
[2022-05-29 08:39] LABS: BILIRUBIN,TOTAL 0.4 mg/dL (0.2-1); TOT PROT 6.8 g/dl (6.4-8.2)
[2022-05-29] MEDS: BACITRACIN ZINC 15 GM TUBE TOPICAL OINTMENT TP SCH ×2 (09:15→21:54)
[2022-05-29] MEDS: FERROUS SO4 325 MG TABLET (FP) PO SCH ×3 (09:16→18:07)
[2022-05-29] MEDS: ZINC SULFATE 220 MG CAPSULE (FP) PO SCH (09:16)
[2022-05-29] MEDS: CEFTRIAXONE 1 GM in DEXTROSE 5%-WATER - 50 ML IVPB SCH (09:16)
[2022-05-29] MEDS: ASCORBIC ACID 500 MG TABLET (FP) PO SCH (09:16)
[2022-05-29] MEDS: NYSTATIN 100000 UNIT/GM TOPICAL OINTMENT 15 GM TUBE TP SCH ×2 (09:35→21:54)
[2022-05-29] MEDS: BETAMETHASONE VALER 0.1% OINT 15 GM TUBE TP SCH (14:09)
[2022-05-29] MEDS: ENOXAPARIN NA (PORCINE) 40 MG/0.4 ML DISP.SYRIN SQ SCH (21:54)
[2022-05-30] MEDS: DIPHENOXYLATE 2.5/ATROPINE.025 1 COMBO TABLET PO SCH ×4 (00:52→18:54)
[2022-05-30] MEDS: DRONABINOL 5 MG CAPSULE PO SCH ×2 (06:17→17:42)
[2022-05-30] MEDS: FAMOTIDINE 20 MG TABLET PO SCH (06:17)
[2022-05-30] MEDS: FERROUS SO4 325 MG TABLET (FP) PO SCH ×3 (12:34→17:42)
[2022-05-30] MEDS: NYSTATIN 100000 UNIT/GM TOPICAL OINTMENT 15 GM TUBE TP SCH ×2 (12:35→21:09)
[2022-05-30] MEDS: BACITRACIN ZINC 15 GM TUBE TOPICAL OINTMENT TP SCH ×2 (12:35→21:09)
[2022-05-30] MEDS: BETAMETHASONE VALER 0.1% OINT 15 GM TUBE TP SCH (12:36)
[2022-05-30] MEDS: ZINC SULFATE 220 MG CAPSULE (FP) PO SCH (12:36)
[2022-05-30] MEDS: ASCORBIC ACID 500 MG TABLET (FP) PO SCH (12:36)
[2022-05-30] MEDS: CEFTRIAXONE 1 GM in DEXTROSE 5%-WATER - 50 ML IVPB SCH (12:37)
[2022-05-30] MEDS: ENOXAPARIN NA (PORCINE) 40 MG/0.4 ML DISP.SYRIN SQ SCH (21:09)
[2022-05-31] MEDS: DIPHENOXYLATE 2.5/ATROPINE.025 1 COMBO TABLET PO SCH ×4 (06:26→18:10)
[2022-05-31] MEDS: FAMOTIDINE 20 MG TABLET PO SCH (06:26)
[2022-05-31] MEDS: DRONABINOL 5 MG CAPSULE PO SCH ×2 (06:30→18:10)
[2022-05-31] MEDS: FERROUS SO4 325 MG TABLET (FP) PO SCH ×3 (09:17→18:10)
[2022-05-31] MEDS: CEFTRIAXONE 1 GM in DEXTROSE 5%-WATER - 50 ML IVPB SCH (13:01)
[2022-05-31] MEDS: ASCORBIC ACID 500 MG TABLET (FP) PO SCH (13:02)
[2022-05-31] MEDS: SILVER SULFADIAZINE 1% TOP CREAM 50 GM JAR TP SCH (13:02)
[2022-05-31] MEDS: BACITRACIN ZINC 15 GM TUBE TOPICAL OINTMENT TP SCH (13:03)
[2022-05-31] MEDS: ZINC SULFATE 220 MG CAPSULE (FP) PO SCH (13:03)
[2022-05-31] MEDS: NYSTATIN 100000 UNIT/GM TOPICAL OINTMENT 15 GM TUBE TP SCH (13:03)
[2022-05-31] MEDS: BETAMETHASONE VALER 0.1% OINT 15 GM TUBE TP SCH (13:03)
[2022-06-01] MEDS: SILVER SULFADIAZINE 1% TOP CREAM 50 GM JAR TP SCH ×3 (00:14→22:45)
[2022-06-01] MEDS: ENOXAPARIN NA (PORCINE) 40 MG/0.4 ML DISP.SYRIN SQ SCH ×2 (00:15→22:42)
[2022-06-01] MEDS: BACITRACIN ZINC 15 GM TUBE TOPICAL OINTMENT TP SCH ×3 (00:15→22:43)
[2022-06-01] MEDS: NYSTATIN 100000 UNIT/GM TOPICAL OINTMENT 15 GM TUBE TP SCH ×3 (00:21→22:46)
[2022-06-01] MEDS: DIPHENOXYLATE 2.5/ATROPINE.025 1 COMBO TABLET PO SCH ×4 (02:27→17:44)
[2022-06-01 03:35] VITALS: RESP 18
[2022-06-01] MEDS: DRONABINOL 5 MG CAPSULE PO SCH ×2 (06:58→17:44)
[2022-06-01] MEDS: FAMOTIDINE 20 MG TABLET PO SCH (06:58)
[2022-06-01 07:51] LABS: EOS % 2.9 % (0-4.5); HEMOGLOBIN 10.7 GM/dL (11.7-16.9); MCH 28.9 pg (25.7-33.7); MCHC 32.4 g/dl (32.0-35.9); MEAN CELL VOLUME 89.2 fl (80-96); MEAN PLT VOLUME 8.5 fl (7.5-11.1); NEUT % 79.1 % (42.8-82.8); PLATELET COUNT 407 10^3/uL (134-434); RDW 17.1 % (11.9-15.9); WHITE BLOOD COUNT 11.2 K/mm3 (4.0-10.0)
[2022-06-01 08:05] LABS: BILIRUBIN,TOTAL 0.6 mg/dL (0.2-1); TOT PROT 8.1 g/dl (6.4-8.2)
[2022-06-01 08:10] LABS: BLOOD UREA NITROGEN 34.7 mg/dL (7-18)
[2022-06-01 08:13] LABS: CREATININE 1.1 mg/dL (0.55-1.3)
[2022-06-01 08:14] LABS: CALCIUM 10.6 mg/dL (8.5-10.1)
[2022-06-01] MEDS: ASCORBIC ACID 500 MG TABLET (FP) PO SCH (09:05)
[2022-06-01] MEDS: AMOX TR/POT CLAV 875MG/125MG TABLETS (FP) PO SCH ×2 (09:05→17:44)
[2022-06-01] MEDS: ZINC SULFATE 220 MG CAPSULE (FP) PO SCH (09:05)
[2022-06-01] MEDS: FERROUS SO4 325 MG TABLET (FP) PO SCH ×3 (09:05→17:45)
[2022-06-01] MEDS ORDERED: CYANOCOBALAMIN (VITAMIN B-12) 1000 MCG/1 ML VIAL IM SCH (10:00)
[2022-06-01] MEDS: BETAMETHASONE VALER 0.1% OINT 15 GM TUBE TP SCH (12:52)
[2022-06-01 23:05] VITALS: BP 98/58; PULSE 79; TEMP 97.8
== END 2022-06-02 | DRG 689 ==
LOC: JER 11:48 → JERBED 20:11 → OBSVTOIN 05-27 13:38 → J7W 05-27 21:27
PROVIDERS: ADMIT Internal Medicine
DX: N39.0 Urinary tract infection, site not specified (principal); E43 Unspecified severe protein-calorie malnutrition; R64 Cachexia; Z68.1 Body mass index [BMI] 19.9 or less, adult; I48.0 Paroxysmal atrial fibrillation; I10 Essential (primary) hypertension; E78.5 Hyperlipidemia, unspecified; K44.9 Diaphragmatic hernia without obstruction or gangrene; K21.9 Gastro-esophageal reflux disease without esophagitis; D64.9 Anemia, unspecified; K62.89 Other specified diseases of anus and rectum; F32.A Depression, unspecified; S90.512A Abrasion, left ankle, initial encounter; S50.312A Abrasion of left elbow, initial encounter; S80.212A Abrasion, left knee, initial encounter; B96.1 Klebsiella pneumoniae [K. pneumoniae] as the cause of diseases classified elsewhere; W01.0XXA Fall on same level from slipping, tripping and stumbling without subsequent striking against object, initial encounter; Y92.098 Other place in other non-institutional residence as the place of occurrence of the external cause; Z85.038 Personal history of other malignant neoplasm of large intestine; Z85.01 Personal history of malignant neoplasm of esophagus
CPT/HCPCS: 0241U-QW; 36415; 70450-TC; 71045-TC-FY; 72125-TC; 72170-TC-FY; 72192-TC; 73070-TC-LT-FY; 73502-TC-LT-FY; 73502-TC-RT-FY; 73552-TC-LT-FY; 73552-TC-RT-FY; 73610-TC-LT-FY; 73630-TC-LT; 80048; 80053; 81003; 82533; 83735; 84100; 84484; 85025; 85610; 85730; 86850; 86900; 86901; 87086; 87186; 87324; 87449; 93005; 93010; 97161-GP; 99285-25; C9803-CS; G0378; U0003; U0005

== ENCOUNTER 2022-06-11 14:07 | Inpatient (IN) | payer OTHER, MEDICARE ==
[2022-06-11 15:32] LABS: BASO % 0.5 % (0-2.0); HEMATOCRIT 37.9 % (35.4-49); MCH 28.7 pg (25.7-33.7); MCHC 31.6 g/dl (32.0-35.9); MEAN CELL VOLUME 90.9 fl (80-96); MEAN PLT VOLUME 9.7 fl (7.5-11.1); MONO % 6.6 % (3.8-10.2); NEUT % 84.9 % (42.8-82.8); PLATELET COUNT 388 10^3/uL (134-434); RBC 4.17 M/mm3 (4.00-5.60); RDW 17.4 % (11.9-15.9)
[2022-06-11 15:37] LABS: INR 1.53 (0.83-1.09); PROTHROMBIN TIME (PATIENT) 17.7 SEC (9.7-13.0)
[2022-06-11 15:40] LABS: ACTIVATED PTT 22.5 SECONDS (25.2-36.5)
[2022-06-11 15:51] LABS: CALCIUM 9.8 mg/dL (8.5-10.1)
[2022-06-11 15:53] LABS: ALBUMIN 3.3 g/dl (3.4-5.0); BLOOD UREA NITROGEN 54.2 mg/dL (7-18); MAGNESIUM 2.2 mg/dL (1.8-2.4)
[2022-06-11 15:55] LABS: PHOSPHOROUS 3.6 mg/dL (2.5-4.9)
[2022-06-11 15:56] LABS: CREATININE 1.4 mg/dL (0.55-1.3)
[2022-06-11 15:57] LABS: BILIRUBIN,TOTAL 0.5 mg/dL (0.2-1); TOT PROT 8.2 g/dl (6.4-8.2)
[2022-06-11] MEDS ORDERED: SODIUM CHLORIDE 0.9% 500 ML INFUS.BAG IV ONE (15:59)
[2022-06-11 17:50] LABS: BLOOD UREA NITROGEN 53.3 mg/dL (7-18); CALCIUM 9.8 mg/dL (8.5-10.1)
[2022-06-11 17:54] LABS: CREATININE 1.4 mg/dL (0.55-1.3)
[2022-06-11] MEDS: DEXTROSE 5%-LACTATED RINGERS 1,000 ML IV SCH (18:44)
[2022-06-11] MEDS ORDERED: HEPARIN NA (PORCINE) 5,000 UNITS/ML 1ML VIAL IVPUSH PRN ×2 (20:09)
[2022-06-11] MEDS ORDERED: HEPARIN INFUSION - 25,000 UNITS/500 ML INFUS.BAG IVPB ONE (20:46)
[2022-06-11] MEDS: HEPARIN INFUSION - 25,000 UNITS/500 ML INFUS.BAG IVPB SCH (20:55)
[2022-06-11] MEDS: NYSTATIN 100000 UNIT/GM TOPICAL OINTMENT 15 GM TUBE TP SCH (21:56)
[2022-06-11 22:51] LABS: EPI CELLS 13 /uL (0-25.1); HYALINE CASTS 1 /uL (0-3.1); PH,URINE 5.5 (5.0-8.0); URINE APPEARANCE CLEAR; URINE BACTERIA 176 /uL (0-1359); URINE BILIRUBIN NEGATIVE (NEGATIVE); URINE COLOR YELLOW; URINE GLUCOSE (UA) NEGATIVE (NEGATIVE); URINE KETONE NEGATIVE (NEGATIVE); URINE LEUK ESTERASE 2+ (NEGATIVE); URINE NITRITE NEGATIVE (NEGATIVE); URINE PROTEIN 1+ (NEGATIVE); URINE UROBILINOGEN 0.2 mg/dL (0.2-1.0); URINE WBC 264 /uL (0-25.8)
[2022-06-12] MEDS ORDERED: ONDANSETRON *ODT* 4 MG TABLET SL PRN (07:10)
[2022-06-12 08:53] LABS: URINE RBC 40.3 /uL (0-23.9); YEAST NEGATIVE (NEGATIVE)
[2022-06-12 09:14] LABS: BASO % 1.1 % (0-2.0); EOS % 2.5 % (0-4.5); HEMATOCRIT 31.2 % (35.4-49); HEMOGLOBIN 10.4 GM/dL (11.7-16.9); LYMPH % 5.8 % (8-40); MCH 29.9 pg (25.7-33.7); MCHC 33.4 g/dl (32.0-35.9); MEAN CELL VOLUME 89.4 fl (80-96); MEAN PLT VOLUME 9.9 fl (7.5-11.1); MONO % 8.1 % (3.8-10.2); NEUT % 82.5 % (42.8-82.8); PLATELET COUNT 307 10^3/uL (134-434); WHITE BLOOD COUNT 10.9 K/mm3 (4.0-10.0)
[2022-06-12] MEDS ORDERED: ALBUTEROL SO4 HFA INHALER IH PRN (09:30)
[2022-06-12 09:39] LABS: CALCIUM 9.2 mg/dL (8.5-10.1)
[2022-06-12 09:41] LABS: ALBUMIN 2.8 g/dl (3.4-5.0); BLOOD UREA NITROGEN 40.1 mg/dL (7-18); MAGNESIUM 1.9 mg/dL (1.8-2.4); PHOSPHOROUS 2.9 mg/dL (2.5-4.9)
[2022-06-12 09:42] LABS: BILIRUBIN,TOTAL 0.4 mg/dL (0.2-1); TOT PROT 6.7 g/dl (6.4-8.2)
[2022-06-12] MEDS: NYSTATIN 100000 UNIT/GM TOPICAL OINTMENT 15 GM TUBE TP SCH ×2 (10:00→22:27)
[2022-06-12] MEDS ORDERED: ASCORB SOD PO SCH (10:00)
[2022-06-12] MEDS ORDERED: MULTIVIT MIN PO SCH (10:00)
[2022-06-12] MEDS ORDERED: VIT C PO SCH (10:00)
[2022-06-12] MEDS: ATORVASTATIN CA 20 MG TABLET (FP) PO SCH (11:35)
[2022-06-12] MEDS: PANTOPRAZOLE 40 MG TABLET PO SCH (11:35)
[2022-06-12] MEDS: ZINC SULFATE 220 MG CAPSULE (FP) PO SCH (11:36)
[2022-06-12] MEDS: metoPROLOL SUCCINATE 25 MG TAB.SR.24H (FP) PO SCH ×2 (11:36→22:28)
[2022-06-12] MEDS: MIDODRINE HCL 5 MG TABLET PO SCH ×3 (11:36→18:35)
[2022-06-12] MEDS: SERTRALINE HCL 50 MG TABLET (FP) PO SCH (11:37)
[2022-06-12] MEDS: HEPARIN INFUSION - 25,000 UNITS/500 ML INFUS.BAG IVPB SCH ×2 (12:24→20:34)
[2022-06-12 12:52] VITALS: BMI 15.6
[2022-06-12] MEDS ORDERED: PATIENT'S OWN MEDICATION (NON-FORMULARY) (Menthol/Zinc Oxide [Calmoseptine Ointment] 71 GM TP SCH (14:00)
[2022-06-12] MEDS: DEXTROSE 5%-LACTATED RINGERS 1,000 ML IV SCH ×2 (18:35→22:22)
[2022-06-13] MEDS: HEPARIN INFUSION - 25,000 UNITS/500 ML INFUS.BAG IVPB SCH ×2 (06:00→21:25)
[2022-06-13] MEDS: PANTOPRAZOLE 40 MG TABLET PO SCH (06:56)
[2022-06-13] MEDS: ATORVASTATIN CA 20 MG TABLET (FP) PO SCH (12:20)
[2022-06-13] MEDS: metoPROLOL SUCCINATE 25 MG TAB.SR.24H (FP) PO SCH ×3 (12:20→21:26)
[2022-06-13] MEDS: MIDODRINE HCL 5 MG TABLET PO SCH ×3 (12:20→17:49)
[2022-06-13] MEDS: SERTRALINE HCL 50 MG TABLET (FP) PO SCH (12:21)
[2022-06-13] MEDS: ZINC SULFATE 220 MG CAPSULE (FP) PO SCH (12:21)
[2022-06-13] MEDS: NYSTATIN 100000 UNIT/GM TOPICAL OINTMENT 15 GM TUBE TP SCH ×2 (12:25→21:26)
[2022-06-13] MEDS: CEFTRIAXONE 1 GM in DEXTROSE 5%-WATER - 50 ML IVPB SCH (15:10)
[2022-06-13] MEDS: AMINO ACIDS/PROTEIN HYDROLYS 30 ML LIQUID.PKT PO SCH (17:49)
[2022-06-13] MEDS: DEXTROSE 5%-LACTATED RINGERS 1,000 ML IV SCH (18:21)
[2022-06-14] MEDS: PANTOPRAZOLE 40 MG TABLET PO SCH (06:09)
[2022-06-14] MEDS: DEXTROSE 5%-LACTATED RINGERS 1,000 ML IV SCH ×2 (06:09→20:53)
[2022-06-14] MEDS: HEPARIN INFUSION - 25,000 UNITS/500 ML INFUS.BAG IVPB SCH ×2 (07:12→20:53)
[2022-06-14] MEDS: AMINO ACIDS/PROTEIN HYDROLYS 30 ML LIQUID.PKT PO SCH ×2 (08:46→17:52)
[2022-06-14] MEDS: SERTRALINE HCL 50 MG TABLET (FP) PO SCH (09:57)
[2022-06-14] MEDS: metoPROLOL SUCCINATE 25 MG TAB.SR.24H (FP) PO SCH ×2 (09:57→21:04)
[2022-06-14] MEDS: CEFTRIAXONE 1 GM in DEXTROSE 5%-WATER - 50 ML IVPB SCH (09:57)
[2022-06-14] MEDS: ATORVASTATIN CA 20 MG TABLET (FP) PO SCH (09:57)
[2022-06-14] MEDS: ZINC SULFATE 220 MG CAPSULE (FP) PO SCH (09:57)
[2022-06-14] MEDS: MIDODRINE HCL 5 MG TABLET PO SCH ×3 (09:57→17:52)
[2022-06-14] MEDS: NYSTATIN 100000 UNIT/GM TOPICAL OINTMENT 15 GM TUBE TP SCH ×2 (09:59→21:04)
[2022-06-14 10:06] LABS: BASO % 0.4 % (0-2.0); EOS % 1.9 % (0-4.5); HEMATOCRIT 30.7 % (35.4-49); HEMOGLOBIN 10.1 GM/dL (11.7-16.9); LYMPH % 6.1 % (8-40); MCH 29.7 pg (25.7-33.7); MCHC 32.9 g/dl (32.0-35.9); MEAN CELL VOLUME 90.3 fl (80-96); MEAN PLT VOLUME 9.8 fl (7.5-11.1); MONO % 6.7 % (3.8-10.2); NEUT % 84.9 % (42.8-82.8); PLATELET COUNT 193 10^3/uL (134-434); RDW 16.9 % (11.9-15.9); WHITE BLOOD COUNT 10.6 K/mm3 (4.0-10.0)
[2022-06-14 10:26] LABS: ALBUMIN 2.6 g/dl (3.4-5.0); BILIRUBIN,TOTAL 0.4 mg/dL (0.2-1); BLOOD UREA NITROGEN 26.1 mg/dL (7-18); CALCIUM 9.1 mg/dL (8.5-10.1); CREATININE 0.9 mg/dL (0.55-1.3); MAGNESIUM 1.6 mg/dL (1.8-2.4); TOT PROT 6.4 g/dl (6.4-8.2)
[2022-06-14] MEDS: NITROFURANTOIN MACROCRYSTAL 50 MG CAPSULE (FP) PO SCH ×2 (17:52→23:03)
[2022-06-15] MEDS: DEXTROSE 5%-LACTATED RINGERS 1,000 ML IV SCH (02:16)
[2022-06-15] MEDS: NITROFURANTOIN MACROCRYSTAL 50 MG CAPSULE (FP) PO SCH (05:30)
[2022-06-15] MEDS: PANTOPRAZOLE 40 MG TABLET PO SCH (05:31)
[2022-06-15] MEDS: metoPROLOL SUCCINATE 25 MG TAB.SR.24H (FP) PO SCH (09:53)
[2022-06-15] MEDS: NYSTATIN 100000 UNIT/GM TOPICAL OINTMENT 15 GM TUBE TP SCH ×2 (10:00→23:04)
[2022-06-15 10:05] LABS: BASO % 0.6 % (0-2.0); EOS % 2.1 % (0-4.5); HEMATOCRIT 27.4 % (35.4-49); HEMOGLOBIN 9.1 GM/dL (11.7-16.9); LYMPH % 5.5 % (8-40); MCH 29.8 pg (25.7-33.7); MCHC 33.2 g/dl (32.0-35.9); MEAN CELL VOLUME 89.7 fl (80-96); MEAN PLT VOLUME 9.4 fl (7.5-11.1); MONO % 9.8 % (3.8-10.2); PLATELET COUNT 200 10^3/uL (134-434); RBC 3.05 M/mm3 (4.00-5.60); RDW 17.1 % (11.9-15.9); WHITE BLOOD COUNT 9.4 K/mm3 (4.0-10.0)
[2022-06-15] MEDS: CEFTRIAXONE 1 GM in DEXTROSE 5%-WATER - 50 ML IVPB SCH (10:05)
[2022-06-15] MEDS ORDERED: DAPTOMYCIN 250 MG in SODIUM CHLORIDE 50 ML IVPB SCH (10:15)
[2022-06-15 10:31] LABS: CALCIUM 8.9 mg/dL (8.5-10.1)
[2022-06-15 10:32] LABS: BLOOD UREA NITROGEN 20.9 mg/dL (7-18); MAGNESIUM 1.7 mg/dL (1.8-2.4)
[2022-06-15 10:34] LABS: ALBUMIN 2.3 g/dl (3.4-5.0)
[2022-06-15 10:35] LABS: CREATININE 0.7 mg/dL (0.55-1.3)
[2022-06-15 10:36] LABS: BILIRUBIN,TOTAL 0.4 mg/dL (0.2-1); TOT PROT 5.8 g/dl (6.4-8.2)
[2022-06-15] MEDS: ATORVASTATIN CA 20 MG TABLET (FP) PO SCH (10:54)
[2022-06-15] MEDS: ZINC SULFATE 220 MG CAPSULE (FP) PO SCH (10:54)
[2022-06-15] MEDS: MIDODRINE HCL 5 MG TABLET PO SCH ×3 (10:54→23:00)
[2022-06-15] MEDS: AMINO ACIDS/PROTEIN HYDROLYS 30 ML LIQUID.PKT PO SCH ×2 (10:54→17:21)
[2022-06-15] MEDS: SERTRALINE HCL 50 MG TABLET (FP) PO SCH (10:54)
[2022-06-15] MEDS: AMPICILLIN NA/SULBACTAM NA 3 GM in SODIUM CHLORIDE 100 ML IVPB SCH (17:18)
[2022-06-15] MEDS ORDERED: AMPICILLIN NA/SULBACTAM NA 3 GM in SODIUM CHLORIDE 100 ML IVPB SCH (18:00)
[2022-06-16] MEDS ORDERED: AMPICILLIN NA/SULBACTAM NA 3 GM VIAL ONE (01:57)
[2022-06-16] MEDS: AMPICILLIN NA/SULBACTAM NA 3 GM in SODIUM CHLORIDE 100 ML IVPB SCH ×3 (01:59→17:27)
[2022-06-16] MEDS: PANTOPRAZOLE 40 MG TABLET PO SCH (06:19)
[2022-06-16] MEDS: DEXTROSE 5%-LACTATED RINGERS 1,000 ML IV SCH ×2 (07:53→18:14)
[2022-06-16] MEDS: AMINO ACIDS/PROTEIN HYDROLYS 30 ML LIQUID.PKT PO SCH ×2 (09:02→17:22)
[2022-06-16 10:04] LABS: BASO % 0.5 % (0-2.0); EOS % 1.3 % (0-4.5); HEMATOCRIT 32.8 % (35.4-49); LYMPH % 5.8 % (8-40); MCH 30.2 pg (25.7-33.7); MCHC 33.4 g/dl (32.0-35.9); MEAN CELL VOLUME 90.4 fl (80-96); MEAN PLT VOLUME 9.5 fl (7.5-11.1); MONO % 8.5 % (3.8-10.2); NEUT % 83.9 % (42.8-82.8); PLATELET COUNT 221 10^3/uL (134-434); RBC 3.63 M/mm3 (4.00-5.60); WHITE BLOOD COUNT 9.8 K/mm3 (4.0-10.0)
[2022-06-16 10:23] LABS: ALBUMIN 2.6 g/dl (3.4-5.0); BLOOD UREA NITROGEN 18.3 mg/dL (7-18); CALCIUM 9.3 mg/dL (8.5-10.1); MAGNESIUM 1.6 mg/dL (1.8-2.4)
[2022-06-16 10:26] LABS: CREATININE 0.9 mg/dL (0.55-1.3)
[2022-06-16 10:27] LABS: BILIRUBIN,TOTAL 0.6 mg/dL (0.2-1)
[2022-06-16 10:28] LABS: TOT PROT 6.7 g/dl (6.4-8.2)
[2022-06-16] MEDS: ZINC SULFATE 220 MG CAPSULE (FP) PO SCH (10:35)
[2022-06-16] MEDS: MIDODRINE HCL 5 MG TABLET PO SCH ×3 (10:35→17:22)
[2022-06-16] MEDS: ATORVASTATIN CA 20 MG TABLET (FP) PO SCH (10:35)
[2022-06-16] MEDS: SERTRALINE HCL 50 MG TABLET (FP) PO SCH (10:36)
[2022-06-16] MEDS: NYSTATIN 100000 UNIT/GM TOPICAL OINTMENT 15 GM TUBE TP SCH ×2 (10:37→21:51)
[2022-06-16] MEDS ORDERED: MAGNESIUM SULF 50% (8.12 MEQ/2 ML-1 GM VIAL) IVPB ONE ×2 (10:40→14:00)
[2022-06-16 12:19] LABS: INR 1.28 (0.83-1.09); PROTHROMBIN TIME (PATIENT) 14.8 SEC (9.7-13.0)
[2022-06-16] MEDS ORDERED: ASCORBIC ACID 500 MG TABLET (FP) PO ONE ×2 (14:34→17:30)
[2022-06-16] MEDS ORDERED: SODIUM PHOSPHATE - 30 MM in SODIUM CHLORIDE 500 ML IVPB ONE (16:00)
[2022-06-16 21:32] LABS: BLOOD UREA NITROGEN 21.9 mg/dL (7-18); CALCIUM 9.1 mg/dL (8.5-10.1); MAGNESIUM 2.4 mg/dL (1.8-2.4)
[2022-06-16 21:36] LABS: CREATININE 0.9 mg/dL (0.55-1.3); PHOSPHOROUS 1.8 mg/dL (2.5-4.9)
[2022-06-16 21:38] LABS: TOTAL IRON BINDING CAPACITY 194 ug/dL (250-450)
[2022-06-16 21:39] LABS: IRON SERUM 22 ug/dL (50-175)
[2022-06-16] MEDS: ASCORBIC ACID 500 MG TABLET (FP) PO SCH (21:49)
[2022-06-17] MEDS: AMPICILLIN NA/SULBACTAM NA 3 GM in SODIUM CHLORIDE 100 ML IVPB SCH ×3 (02:00→18:26)
[2022-06-17] MEDS ORDERED: SODIUM PHOSPHATE - 30 MM in SODIUM CHLORIDE 250 ML IVPB ONE (03:11)
[2022-06-17] MEDS: PANTOPRAZOLE 40 MG TABLET PO SCH (06:09)
[2022-06-17] MEDS: AMINO ACIDS/PROTEIN HYDROLYS 30 ML LIQUID.PKT PO SCH ×2 (10:01→18:26)
[2022-06-17] MEDS: ATORVASTATIN CA 20 MG TABLET (FP) PO SCH (10:08)
[2022-06-17] MEDS: ZINC SULFATE 220 MG CAPSULE (FP) PO SCH (10:08)
[2022-06-17] MEDS: MIDODRINE HCL 5 MG TABLET PO SCH ×3 (10:09→18:26)
[2022-06-17] MEDS: SERTRALINE HCL 50 MG TABLET (FP) PO SCH (10:09)
[2022-06-17] MEDS: ASCORBIC ACID 500 MG TABLET (FP) PO SCH ×2 (10:09→22:11)
[2022-06-17 10:14] LABS: HEMATOCRIT 29.3 % (35.4-49); HEMOGLOBIN 9.5 GM/dL (11.7-16.9); MCH 29.5 pg (25.7-33.7); MCHC 32.4 g/dl (32.0-35.9); MEAN PLT VOLUME 8.7 fl (7.5-11.1); PLATELET COUNT 189 10^3/uL (134-434); RBC 3.22 M/mm3 (4.00-5.60); RDW 17.3 % (11.9-15.9); WHITE BLOOD COUNT 12.2 K/mm3 (4.0-10.0)
[2022-06-17] MEDS ORDERED: SODIUM CHLORIDE 250 ML IV STA (11:36)
[2022-06-17 11:42] LABS: ANISOCYTOSIS 0; HELMET CELLS 0; HOWELL-JOLLY BODIES 0; MACROCYTOSIS 0; OVALOCYTE 0; ROULEAU 0; SICKELED CELLS 0; TARGET CELLS 0; TEAR DROP CELLS 0; TOXIC GRANULATION 0
[2022-06-17 12:46] LABS: BLOOD UREA NITROGEN 22.5 mg/dL (7-18); MAGNESIUM 2.1 mg/dL (1.8-2.4)
[2022-06-17 12:49] LABS: CREATININE 0.9 mg/dL (0.55-1.3)
[2022-06-17] MEDS: DEXTROSE 5%-LACTATED RINGERS 1,000 ML IV SCH (15:49)
[2022-06-17] MEDS: NYSTATIN 100000 UNIT/GM TOPICAL OINTMENT 15 GM TUBE TP SCH ×2 (15:50→22:13)
[2022-06-18] MEDS: AMPICILLIN NA/SULBACTAM NA 3 GM in SODIUM CHLORIDE 100 ML IVPB SCH ×3 (01:46→18:22)
[2022-06-18] MEDS: DEXTROSE 5%-LACTATED RINGERS 1,000 ML IV SCH (05:01)
[2022-06-18] MEDS: PANTOPRAZOLE 40 MG TABLET PO SCH (07:00)
[2022-06-18] MEDS: MIDODRINE HCL 5 MG TABLET PO SCH ×3 (09:18→17:32)
[2022-06-18] MEDS: SERTRALINE HCL 50 MG TABLET (FP) PO SCH (09:19)
[2022-06-18] MEDS: ZINC SULFATE 220 MG CAPSULE (FP) PO SCH (09:19)
[2022-06-18] MEDS: ASCORBIC ACID 500 MG TABLET (FP) PO SCH ×2 (09:21→21:38)
[2022-06-18] MEDS: ATORVASTATIN CA 20 MG TABLET (FP) PO SCH (09:21)
[2022-06-18] MEDS: AMINO ACIDS/PROTEIN HYDROLYS 30 ML LIQUID.PKT PO SCH ×2 (09:21→17:31)
[2022-06-18] MEDS ORDERED: DEXTROSE 5%-LACTATED RINGERS 1,000 ML IV SCH (11:06)
[2022-06-18 11:47] LABS: ALBUMIN 2.6 g/dl (3.4-5.0); CALCIUM 9.3 mg/dL (8.5-10.1)
[2022-06-18 11:48] LABS: MAGNESIUM 1.9 mg/dL (1.8-2.4)
[2022-06-18 11:50] LABS: PHOSPHOROUS 2.6 mg/dL (2.5-4.9)
[2022-06-18 11:51] LABS: BILIRUBIN,TOTAL 0.3 mg/dL (0.2-1); TOT PROT 6.7 g/dl (6.4-8.2)
[2022-06-18] MEDS: NYSTATIN 100000 UNIT/GM TOPICAL OINTMENT 15 GM TUBE TP SCH ×2 (13:12→21:38)
[2022-06-18] MEDS ORDERED: DEXTROSE 5%-WATER - 1,000 ML IV SCH ×2 (14:45)
[2022-06-18 18:18] LABS: CALCIUM 8.8 mg/dL (8.5-10.1)
[2022-06-18 18:19] LABS: BLOOD UREA NITROGEN 27.2 mg/dL (7-18)
[2022-06-18 18:22] LABS: CREATININE 0.9 mg/dL (0.55-1.3)
[2022-06-19] MEDS: AMPICILLIN NA/SULBACTAM NA 3 GM in SODIUM CHLORIDE 100 ML IVPB SCH ×2 (02:47→09:53)
[2022-06-19] MEDS: PANTOPRAZOLE 40 MG TABLET PO SCH (06:37)
[2022-06-19 08:56] LABS: HEMATOCRIT 27.9 % (35.4-49); HEMOGLOBIN 9.1 GM/dL (11.7-16.9); MCH 30.2 pg (25.7-33.7); MCHC 32.8 g/dl (32.0-35.9); MEAN PLT VOLUME 9.5 fl (7.5-11.1); PLATELET COUNT 141 10^3/uL (134-434); RBC 3.03 M/mm3 (4.00-5.60); RDW 17.3 % (11.9-15.9)
[2022-06-19] MEDS: ZINC SULFATE 220 MG CAPSULE (FP) PO SCH (09:31)
[2022-06-19] MEDS: ASCORBIC ACID 500 MG TABLET (FP) PO SCH ×2 (09:31→21:30)
[2022-06-19] MEDS: MIDODRINE HCL 5 MG TABLET PO SCH ×3 (09:31→17:48)
[2022-06-19] MEDS: SERTRALINE HCL 50 MG TABLET (FP) PO SCH (09:31)
[2022-06-19] MEDS: AMINO ACIDS/PROTEIN HYDROLYS 30 ML LIQUID.PKT PO SCH ×2 (09:32→17:48)
[2022-06-19] MEDS: NYSTATIN 100000 UNIT/GM TOPICAL OINTMENT 15 GM TUBE TP SCH ×2 (10:35→21:31)
[2022-06-19] MEDS: ATORVASTATIN CA 20 MG TABLET (FP) PO SCH (10:38)
[2022-06-19 11:42] LABS: CALCIUM 9.2 mg/dL (8.5-10.1)
[2022-06-19 11:43] LABS: BLOOD UREA NITROGEN 25.1 mg/dL (7-18)
[2022-06-19 11:46] LABS: CREATININE 0.8 mg/dL (0.55-1.3)
[2022-06-19] MEDS: AMINO ACIDS 4.25%/D5W 1,000 ML IV SCH (15:19)
[2022-06-20] MEDS: PANTOPRAZOLE 40 MG TABLET PO SCH (06:16)
[2022-06-20 08:48] LABS: BASO % 0.7 % (0-2.0); EOS % 2.3 % (0-4.5); HEMATOCRIT 30.6 % (35.4-49); HEMOGLOBIN 9.9 GM/dL (11.7-16.9); LYMPH % 6.6 % (8-40); MCH 29.5 pg (25.7-33.7); MCHC 32.4 g/dl (32.0-35.9); MEAN PLT VOLUME 9.1 fl (7.5-11.1); MONO % 6.3 % (3.8-10.2); NEUT % 84.1 % (42.8-82.8); PLATELET COUNT 174 10^3/uL (134-434); RBC 3.37 M/mm3 (4.00-5.60); WHITE BLOOD COUNT 12.7 K/mm3 (4.0-10.0)
[2022-06-20] MEDS: AMINO ACIDS/PROTEIN HYDROLYS 30 ML LIQUID.PKT PO SCH ×2 (08:59→17:24)
[2022-06-20 09:07] LABS: CALCIUM 9.7 mg/dL (8.5-10.1)
[2022-06-20 09:08] LABS: ALBUMIN 2.6 g/dl (3.4-5.0); BLOOD UREA NITROGEN 41.1 mg/dL (7-18); MAGNESIUM 1.9 mg/dL (1.8-2.4)
[2022-06-20 09:11] LABS: CREATININE 0.9 mg/dL (0.55-1.3); PHOSPHOROUS 2.1 mg/dL (2.5-4.9)
[2022-06-20 09:12] LABS: BILIRUBIN,TOTAL 0.5 mg/dL (0.2-1); TOT PROT 6.7 g/dl (6.4-8.2)
[2022-06-20] MEDS: ASCORBIC ACID 500 MG TABLET (FP) PO SCH ×2 (10:37→22:08)
[2022-06-20] MEDS: ATORVASTATIN CA 20 MG TABLET (FP) PO SCH (10:37)
[2022-06-20] MEDS: SERTRALINE HCL 50 MG TABLET (FP) PO SCH (10:37)
[2022-06-20] MEDS: ZINC SULFATE 220 MG CAPSULE (FP) PO SCH (10:37)
[2022-06-20] MEDS: MIDODRINE HCL 5 MG TABLET PO SCH ×3 (10:37→17:24)
[2022-06-20] MEDS: NYSTATIN 100000 UNIT/GM TOPICAL OINTMENT 15 GM TUBE TP SCH ×2 (10:41→22:09)
[2022-06-20] MEDS ORDERED: SODIUM CHLORIDE 250 ML IV STA (13:17)
[2022-06-20] MEDS ORDERED: SODIUM PHOSPHATE - 20 MM in DEXTROSE 5%-WATER - 250 ML IVPB ONE (13:45)
[2022-06-20] MEDS: AMINO ACIDS 4.25%/D5W 1,000 ML IV SCH (16:20)
[2022-06-21] MEDS: PANTOPRAZOLE 40 MG TABLET PO SCH (05:52)
[2022-06-21 09:05] LABS: BASO % 0.5 % (0-2.0); EOS % 2.7 % (0-4.5); HEMATOCRIT 29.7 % (35.4-49); LYMPH % 7.2 % (8-40); MCH 30.2 pg (25.7-33.7); MCHC 33.8 g/dl (32.0-35.9); MEAN CELL VOLUME 89.3 fl (80-96); MEAN PLT VOLUME 9.3 fl (7.5-11.1); MONO % 6.3 % (3.8-10.2); NEUT % 83.3 % (42.8-82.8); PLATELET COUNT 178 10^3/uL (134-434); RBC 3.33 M/mm3 (4.00-5.60); RDW 16.3 % (11.9-15.9); WHITE BLOOD COUNT 10.5 K/mm3 (4.0-10.0)
[2022-06-21 10:57] LABS: ALBUMIN 2.5 g/dl (3.4-5.0); BILIRUBIN,TOTAL 0.4 mg/dL (0.2-1); CALCIUM 8.8 mg/dL (8.5-10.1); CREATININE 0.7 mg/dL (0.55-1.3); TOT PROT 6.5 g/dl (6.4-8.2)
[2022-06-21] MEDS: ASCORBIC ACID 500 MG TABLET (FP) PO SCH ×2 (11:15→21:37)
[2022-06-21] MEDS: MIDODRINE HCL 5 MG TABLET PO SCH ×3 (11:15→17:31)
[2022-06-21] MEDS: AMINO ACIDS/PROTEIN HYDROLYS 30 ML LIQUID.PKT PO SCH ×2 (11:15→17:30)
[2022-06-21] MEDS: SERTRALINE HCL 50 MG TABLET (FP) PO SCH (11:15)
[2022-06-21] MEDS: ZINC SULFATE 220 MG CAPSULE (FP) PO SCH (11:15)
[2022-06-21] MEDS: NYSTATIN 100000 UNIT/GM TOPICAL OINTMENT 15 GM TUBE TP SCH ×2 (11:16→21:37)
[2022-06-21] MEDS: ATORVASTATIN CA 20 MG TABLET (FP) PO SCH (11:16)
[2022-06-21] MEDS: POTASSIUM CHLORIDE 10 MEQ in DEXTROSE 5%-NORMAL SALINE 995 ML IV SCH (14:31)
[2022-06-22] MEDS: POTASSIUM CHLORIDE 10 MEQ in DEXTROSE 5%-NORMAL SALINE 995 ML IV SCH ×3 (03:00→14:54)
[2022-06-22] MEDS: PANTOPRAZOLE 40 MG TABLET PO SCH (07:27)
[2022-06-22] MEDS: AMINO ACIDS/PROTEIN HYDROLYS 30 ML LIQUID.PKT PO SCH ×2 (07:46→17:06)
[2022-06-22 08:47] LABS: BASO % 0.8 % (0-2.0); EOS % 3.1 % (0-4.5); HEMATOCRIT 30.6 % (35.4-49); HEMOGLOBIN 10.4 GM/dL (11.7-16.9); LYMPH % 5.7 % (8-40); MCH 30.3 pg (25.7-33.7); MCHC 33.8 g/dl (32.0-35.9); MEAN CELL VOLUME 89.6 fl (80-96); MEAN PLT VOLUME 9.3 fl (7.5-11.1); MONO % 7.5 % (3.8-10.2); NEUT % 82.9 % (42.8-82.8); PLATELET COUNT 174 10^3/uL (134-434); RBC 3.42 M/mm3 (4.00-5.60); RDW 16.6 % (11.9-15.9); WHITE BLOOD COUNT 8.8 K/mm3 (4.0-10.0)
[2022-06-22 09:14] LABS: PHOSPHOROUS 2.3 mg/dL (2.5-4.9)
[2022-06-22] MEDS: MIDODRINE HCL 5 MG TABLET PO SCH ×3 (10:00→17:06)
[2022-06-22] MEDS: NYSTATIN 100000 UNIT/GM TOPICAL OINTMENT 15 GM TUBE TP SCH ×2 (10:20→23:07)
[2022-06-22 14:10] LABS: ALBUMIN 2.5 g/dl (3.4-5.0); BILIRUBIN,TOTAL 0.7 mg/dL (0.2-1); BLOOD UREA NITROGEN 29.5 mg/dL (7-18); CALCIUM 8.6 mg/dL (8.5-10.1); CREATININE 0.8 mg/dL (0.55-1.3); TOT PROT 6.4 g/dl (6.4-8.2)
[2022-06-22] MEDS: ZINC SULFATE 220 MG CAPSULE (FP) PO SCH (14:17)
[2022-06-22] MEDS: ATORVASTATIN CA 20 MG TABLET (FP) PO SCH (14:17)
[2022-06-22] MEDS: ASCORBIC ACID 500 MG TABLET (FP) PO SCH ×2 (14:18→23:07)
[2022-06-22] MEDS: SERTRALINE HCL 50 MG TABLET (FP) PO SCH (14:18)
[2022-06-22] MEDS: ZINC OXIDE 20% TOPICAL OINTMENT 30 GM TUBE TP SCH (23:07)
[2022-06-23] MEDS: POTASSIUM CHLORIDE 10 MEQ in DEXTROSE 5%-NORMAL SALINE 995 ML IV SCH ×2 (01:15→06:55)
[2022-06-23] MEDS: PANTOPRAZOLE 40 MG TABLET PO SCH (06:22)
[2022-06-23] MEDS: AMINO ACIDS/PROTEIN HYDROLYS 30 ML LIQUID.PKT PO SCH ×2 (08:28→17:03)
[2022-06-23] MEDS ORDERED: SODIUM CHLORIDE 250 ML IV STA (08:39)
[2022-06-23 09:40] LABS: BASO % 0.8 % (0-2.0); EOS % 3.5 % (0-4.5); HEMATOCRIT 29.3 % (35.4-49); HEMOGLOBIN 9.6 GM/dL (11.7-16.9); MCH 29.5 pg (25.7-33.7); MCHC 32.6 g/dl (32.0-35.9); MEAN CELL VOLUME 90.6 fl (80-96); MONO % 8.1 % (3.8-10.2); NEUT % 80.6 % (42.8-82.8); PLATELET COUNT 190 10^3/uL (134-434); RBC 3.24 M/mm3 (4.00-5.60); RDW 16.8 % (11.9-15.9); WHITE BLOOD COUNT 8.5 K/mm3 (4.0-10.0)
[2022-06-23 09:59] LABS: ALBUMIN 2.4 g/dl (3.4-5.0); CALCIUM 8.8 mg/dL (8.5-10.1)
[2022-06-23 10:00] LABS: BLOOD UREA NITROGEN 19.3 mg/dL (7-18); MAGNESIUM 1.6 mg/dL (1.8-2.4)
[2022-06-23 10:02] LABS: CREATININE 0.7 mg/dL (0.55-1.3); PHOSPHOROUS 2.2 mg/dL (2.5-4.9)
[2022-06-23 10:04] LABS: BILIRUBIN,TOTAL 0.3 mg/dL (0.2-1); TOT PROT 6.3 g/dl (6.4-8.2)
[2022-06-23] MEDS ORDERED: MAGNESIUM SULF 50% (8.12 MEQ/2 ML-1 GM VIAL) IVPB ONE (10:16)
[2022-06-23] MEDS: ASCORBIC ACID 500 MG TABLET (FP) PO SCH ×2 (10:34→22:01)
[2022-06-23] MEDS: ATORVASTATIN CA 20 MG TABLET (FP) PO SCH (10:34)
[2022-06-23] MEDS: ZINC SULFATE 220 MG CAPSULE (FP) PO SCH (10:34)
[2022-06-23] MEDS: SERTRALINE HCL 50 MG TABLET (FP) PO SCH (10:35)
[2022-06-23] MEDS: ZINC OXIDE 20% TOPICAL OINTMENT 30 GM TUBE TP SCH (10:35)
[2022-06-23] MEDS: MIDODRINE HCL 5 MG TABLET PO SCH ×3 (10:39→17:04)
[2022-06-23] MEDS ORDERED: SODIUM PHOSPHATE - 30 MM in SODIUM CHLORIDE 250 ML IVPB ONE (11:30)
[2022-06-23] MEDS: NYSTATIN 100000 UNIT/GM TOPICAL OINTMENT 15 GM TUBE TP SCH ×2 (11:38→22:02)
[2022-06-23] MEDS: DEXTROSE 5%-0.45% SALINE 995 ML with POTASSIUM CHLORIDE 10 MEQ IV SCH ×2 (17:38→18:53)
[2022-06-24] MEDS: AMINO ACIDS/PROTEIN HYDROLYS 30 ML LIQUID.PKT PO SCH ×2 (07:59→16:45)
[2022-06-24 09:25] LABS: BASO % 0.7 % (0-2.0); EOS % 3.3 % (0-4.5); HEMATOCRIT 27.6 % (35.4-49); HEMOGLOBIN 9.2 GM/dL (11.7-16.9); LYMPH % 5.7 % (8-40); MCH 29.8 pg (25.7-33.7); MCHC 33.2 g/dl (32.0-35.9); MEAN CELL VOLUME 89.7 fl (80-96); MEAN PLT VOLUME 8.6 fl (7.5-11.1); MONO % 9.5 % (3.8-10.2); NEUT % 80.8 % (42.8-82.8); PLATELET COUNT 194 10^3/uL (134-434); RBC 3.08 M/mm3 (4.00-5.60); RDW 16.5 % (11.9-15.9)
[2022-06-24 09:28] LABS: INR 1.29 (0.83-1.09); PROTHROMBIN TIME (PATIENT) 14.9 SEC (9.7-13.0)
[2022-06-24] MEDS: ASCORBIC ACID 500 MG TABLET (FP) PO SCH ×2 (09:41→21:58)
[2022-06-24] MEDS: ATORVASTATIN CA 20 MG TABLET (FP) PO SCH (09:41)
[2022-06-24] MEDS: ZINC SULFATE 220 MG CAPSULE (FP) PO SCH (09:41)
[2022-06-24] MEDS: SERTRALINE HCL 50 MG TABLET (FP) PO SCH (09:42)
[2022-06-24 09:51] LABS: CALCIUM 8.5 mg/dL (8.5-10.1)
[2022-06-24 09:52] LABS: BLOOD UREA NITROGEN 14.4 mg/dL (7-18); MAGNESIUM 1.8 mg/dL (1.8-2.4)
[2022-06-24] MEDS: MIDODRINE HCL 5 MG TABLET PO SCH ×3 (09:52→17:31)
[2022-06-24] MEDS: PANTOPRAZOLE SODIUM 40 MG VIAL IVPUSH SCH (09:52)
[2022-06-24 09:53] LABS: ALBUMIN 2.3 g/dl (3.4-5.0)
[2022-06-24 09:55] LABS: CREATININE 0.7 mg/dL (0.55-1.3); PHOSPHOROUS 2.6 mg/dL (2.5-4.9)
[2022-06-24 09:56] LABS: BILIRUBIN,TOTAL 0.5 mg/dL (0.2-1); TOT PROT 5.8 g/dl (6.4-8.2)
[2022-06-24] MEDS: ZINC OXIDE 20% TOPICAL OINTMENT 30 GM TUBE TP SCH ×2 (09:58→21:58)
[2022-06-24] MEDS: NYSTATIN 100000 UNIT/GM TOPICAL OINTMENT 15 GM TUBE TP SCH ×2 (09:58→21:58)
[2022-06-24] MEDS: DEXTROSE 5%-0.45% SALINE 995 ML with POTASSIUM CHLORIDE 10 MEQ IV SCH ×2 (16:45→19:56)
[2022-06-24] MEDS: APIXABAN 2.5 MG TABLET PO SCH ×2 (16:45→21:58)
[2022-06-24] MEDS ORDERED: DRONABINOL 2.5 MG CAPSULE PO ONE (17:00)
[2022-06-25] MEDS ORDERED: INSULIN (NOVOLOG) ASPART 100 UNITS/ML 10ML VIAL ONE (07:47)
[2022-06-25] MEDS: DRONABINOL 2.5 MG CAPSULE PO SCH ×4 (08:32→21:48)
[2022-06-25] MEDS: AMINO ACIDS/PROTEIN HYDROLYS 30 ML LIQUID.PKT PO SCH ×2 (08:33→17:18)
[2022-06-25] MEDS: ZINC SULFATE 220 MG CAPSULE (FP) PO SCH (09:53)
[2022-06-25] MEDS: APIXABAN 2.5 MG TABLET PO SCH ×2 (09:53→21:48)
[2022-06-25] MEDS: MIDODRINE HCL 5 MG TABLET PO SCH ×3 (09:53→17:18)
[2022-06-25] MEDS: ATORVASTATIN CA 20 MG TABLET (FP) PO SCH (09:53)
[2022-06-25] MEDS: ASCORBIC ACID 500 MG TABLET (FP) PO SCH ×2 (09:53→21:48)
[2022-06-25] MEDS: SERTRALINE HCL 50 MG TABLET (FP) PO SCH (09:53)
[2022-06-25] MEDS: PANTOPRAZOLE SODIUM 40 MG VIAL IVPUSH SCH (09:54)
[2022-06-25] MEDS: ZINC OXIDE 20% TOPICAL OINTMENT 30 GM TUBE TP SCH ×2 (09:54→21:49)
[2022-06-25] MEDS: NYSTATIN 100000 UNIT/GM TOPICAL OINTMENT 15 GM TUBE TP SCH ×2 (09:54→21:48)
[2022-06-25 10:04] LABS: BASO % 0.7 % (0-2.0); EOS % 4.9 % (0-4.5); HEMATOCRIT 27.7 % (35.4-49); HEMOGLOBIN 9.2 GM/dL (11.7-16.9); LYMPH % 6.5 % (8-40); MCH 30.1 pg (25.7-33.7); MCHC 33.3 g/dl (32.0-35.9); MEAN CELL VOLUME 90.4 fl (80-96); MEAN PLT VOLUME 9.7 fl (7.5-11.1); MONO % 9.6 % (3.8-10.2); NEUT % 78.3 % (42.8-82.8); PLATELET COUNT 220 10^3/uL (134-434); RBC 3.07 M/mm3 (4.00-5.60); RDW 16.5 % (11.9-15.9); WHITE BLOOD COUNT 6.9 K/mm3 (4.0-10.0)
[2022-06-25 10:15] LABS: ALBUMIN 2.2 g/dl (3.4-5.0); BLOOD UREA NITROGEN 12.8 mg/dL (7-18); CALCIUM 8.5 mg/dL (8.5-10.1); MAGNESIUM 1.7 mg/dL (1.8-2.4)
[2022-06-25 10:18] LABS: CREATININE 0.7 mg/dL (0.55-1.3); PHOSPHOROUS 2.2 mg/dL (2.5-4.9)
[2022-06-25 10:20] LABS: BILIRUBIN,TOTAL 0.4 mg/dL (0.2-1)
[2022-06-25] MEDS ORDERED: MAGNESIUM SULF 50% (8.12 MEQ/2 ML-1 GM VIAL) IVPB ONE (11:30)
[2022-06-25] MEDS ORDERED: SODIUM PHOSPHATE - 30 MM in DEXTROSE 5%-WATER - 250 ML IVPB ONE (12:00)
[2022-06-25] MEDS ORDERED: SODIUM PHOSPHATE - 30 MM in DEXTROSE 5%-WATER - 500 ML IVPB ONE (14:00)
[2022-06-25] MEDS: DEXTROSE 5%-0.45% SALINE 995 ML with POTASSIUM CHLORIDE 10 MEQ IV SCH (15:05)
[2022-06-25] MEDS: FERROUS SO4 300 MG/5 ML ORAL SOLN UNIT DOSE CUPS PO SCH (18:41)
[2022-06-26] MEDS: DRONABINOL 2.5 MG CAPSULE PO SCH ×4 (08:54→22:36)
[2022-06-26] MEDS: AMINO ACIDS/PROTEIN HYDROLYS 30 ML LIQUID.PKT PO SCH ×2 (08:54→17:28)
[2022-06-26] MEDS: ASCORBIC ACID 500 MG TABLET (FP) PO SCH ×2 (09:17→22:36)
[2022-06-26] MEDS: PANTOPRAZOLE SODIUM 40 MG VIAL IVPUSH SCH (09:17)
[2022-06-26] MEDS: ZINC SULFATE 220 MG CAPSULE (FP) PO SCH (09:17)
[2022-06-26 09:18] LABS: BASO % 0.6 % (0-2.0); EOS % 5.2 % (0-4.5); HEMATOCRIT 32.4 % (35.4-49); HEMOGLOBIN 10.6 GM/dL (11.7-16.9); LYMPH % 9.5 % (8-40); MCH 29.7 pg (25.7-33.7); MCHC 32.8 g/dl (32.0-35.9); MEAN CELL VOLUME 90.7 fl (80-96); MEAN PLT VOLUME 8.5 fl (7.5-11.1); MONO % 5.2 % (3.8-10.2); NEUT % 79.5 % (42.8-82.8); PLATELET COUNT 270 10^3/uL (134-434); RBC 3.57 M/mm3 (4.00-5.60); RDW 16.7 % (11.9-15.9); WHITE BLOOD COUNT 6.7 K/mm3 (4.0-10.0)
[2022-06-26] MEDS: ATORVASTATIN CA 20 MG TABLET (FP) PO SCH (09:18)
[2022-06-26] MEDS: APIXABAN 2.5 MG TABLET PO SCH ×2 (09:18→22:36)
[2022-06-26] MEDS: SERTRALINE HCL 50 MG TABLET (FP) PO SCH (09:18)
[2022-06-26] MEDS: FERROUS SO4 300 MG/5 ML ORAL SOLN UNIT DOSE CUPS PO SCH (09:25)
[2022-06-26] MEDS: MIDODRINE HCL 5 MG TABLET PO SCH ×4 (09:27→20:16)
[2022-06-26 10:08] LABS: ALBUMIN 2.5 g/dl (3.4-5.0); BLOOD UREA NITROGEN 17.1 mg/dL (7-18); MAGNESIUM 1.9 mg/dL (1.8-2.4)
[2022-06-26 10:09] LABS: CALCIUM 8.6 mg/dL (8.5-10.1)
[2022-06-26 10:11] LABS: CREATININE 0.8 mg/dL (0.55-1.3); PHOSPHOROUS 3.3 mg/dL (2.5-4.9)
[2022-06-26 10:12] LABS: BILIRUBIN,TOTAL 0.4 mg/dL (0.2-1); TOT PROT 6.7 g/dl (6.4-8.2)
[2022-06-26] MEDS: ZINC OXIDE 20% TOPICAL OINTMENT 30 GM TUBE TP SCH ×3 (13:28→22:36)
[2022-06-26] MEDS: NYSTATIN 100000 UNIT/GM TOPICAL OINTMENT 15 GM TUBE TP SCH ×2 (13:28→22:36)
[2022-06-26] MEDS: DEXTROSE 5%-0.45% SALINE 995 ML with POTASSIUM CHLORIDE 10 MEQ IV SCH ×2 (15:33→20:15)
[2022-06-26] MEDS: POTASSIUM CHLORIDE 10 MEQ in DEXTROSE 5%-NORMAL SALINE 995 ML IV SCH (19:51)
[2022-06-26 22:31] VITALS: BP 82/45; PULSE 70; RESP 17; TEMP 98.1
== END 2022-06-26 22:15 | DRG 689 ==
LOC: JER 14:07 → JERBED 14:24 → J5S 06-12 03:20 → J6S 06-15 14:36
PROVIDERS: ADMIT Internal Medicine; ATTEND Internal Medicine
DX: N39.0 Urinary tract infection, site not specified (principal); E43 Unspecified severe protein-calorie malnutrition; R64 Cachexia; C18.9 Malignant neoplasm of colon, unspecified; C15.9 Malignant neoplasm of esophagus, unspecified; Z68.1 Body mass index [BMI] 19.9 or less, adult; E87.0 Hyperosmolality and hypernatremia; N17.9 Acute kidney failure, unspecified; B49 Unspecified mycosis; J44.9 Chronic obstructive pulmonary disease, unspecified; I10 Essential (primary) hypertension; E11.9 Type 2 diabetes mellitus without complications; F32.A Depression, unspecified; N18.9 Chronic kidney disease, unspecified; I48.0 Paroxysmal atrial fibrillation; Z93.3 Colostomy status; E78.5 Hyperlipidemia, unspecified; K21.9 Gastro-esophageal reflux disease without esophagitis; L89.152 Pressure ulcer of sacral region, stage 2; R62.7 Adult failure to thrive; E86.0 Dehydration; L08.9 Local infection of the skin and subcutaneous tissue, unspecified; R13.10 Dysphagia, unspecified; Z66 Do not resuscitate; A49.1 Streptococcal infection, unspecified site
CPT/HCPCS: 0241U-QW; 0598T; 36415; 71045-TC-FY; 74176-TC; 74230-TC-FY; 80048; 80053; 81003; 82550; 82728; 82962; 83540; 83550; 83735; 84100; 85025; 85027; 85045; 85610; 85730; 86140; 86850; 86900; 86901; 87040; 87077; 87086; 87186; 92611-GN; 93005; 93010; 94761; 97116-GP; 97163-GP; 99285-25; C9803-CS; J1644; U0003; U0005